=== PATIENT | male | born 1935 | race Caucasian/White ===

== ENCOUNTER 2016-08-28 06:59 | Observation (INO) | payer OTHER, BC ==
[2016-08-28] MEDS ORDERED: MORPHINE SULFATE INJ 2 MG IVP PRN (07:04)
[2016-08-28] MEDS: NITROSTAT SL PRN ×3 (07:20→07:30)
--- NOTE | 2016-08-28 07:28 | RAD ---
HISTORY: Chest pain Study: Chest one view Comparison: February 24, 2016 Findings: The trachea is midline. The cardiac silhouette is unremarkable. The lungs are clear without focal infiltrate or effusion. The bony thorax is unremarkable. There is a port present on the left. IMPRESSION: 1. No acute cardiopulmonary disease. Reported By:
[2016-08-28] MEDS: NS 1000 ML 1,000 ML IV SCH ×2 (07:30→21:03)
[2016-08-28] MEDS ORDERED: LEVSIN/MAALOX/LIDOC VISC PO PRN (07:49)
[2016-08-28 08:12] LABS: BASOPHILS # (AUTO) 0.1 X10^3/uL (0.0-0.1); BASOPHILS % (AUTO) 0.7 % (0.2-1.0); EOSINOPHILS # (AUTO) 0.1 x10^3/uL (0.0-0.2); EOSINOPHILS % (AUTO) 0.7 % (0.9-2.9); HEMATOCRIT 39.6 % (42.0-54.0); HEMOGLOBIN 13.7 g/dL (13.5-18.0); LYMPHOCYTES # (AUTO) 1.2 X10^3/uL (1.3-2.9); LYMPHOCYTES % (AUTO) 11.8 % (21.0-51.0); MEAN CORPUSCULAR HEMOGLOBIN 30.4 pg (27.0-34.0); MEAN CORPUSCULAR HGB CONC 34.6 g/dL (33.0-35.0); MEAN CORPUSCULAR VOLUME 87.8 fL (80.0-100.0); MEAN PLATELET VOLUME 8.5 fL (7.4-11.0); MONOCYTES # (AUTO) 1.2 x10^3/uL (0.3-0.8); MONOCYTES % (AUTO) 11.9 % (0.0-13.0); NEUTROPHILS # (AUTO) 7.4 x10^3/uL (2.2-4.8); NEUTROPHILS % (AUTO) 74.9 % (42.0-75.0); PLATELET COUNT 322 X10^3/uL (150.0-450.0); RED BLOOD COUNT 4.51 X10^6/uL (4.7-6.0)
[2016-08-28] MEDS ORDERED: DILAUDID INJ IVP PRN (08:15)
[2016-08-28 08:18] LABS: ALANINE AMINOTRANSFERASE 19 Units/L (12-78); ALBUMIN 3.3 g/dL (3.4-5.0); ALKALINE PHOSPHATASE 70 Units/L (46-116); ASPARTATE AMINO TRANSFERASE 13 Units/L (15-37); BLOOD UREA NITROGEN 32 mg/dL (7-18); CALCIUM 9.2 mg/dL (8.5-10.1); CARBON DIOXIDE 21.5 mmol/L (21-32); CHLORIDE 105 mmol/L (98-107); COR CA(FOR HYPOALB) 9.8 mg/dL (8.5-10.1); COR NA(FOR HYPERGLY) 140 mmol/L (136-145); GLUCOSE 196 mg/dL (65-99); MAGNESIUM 2.1 mg/dL (1.7-2.9); SODIUM 138 mmol/L (136-145); TOTAL PROTEIN 7.6 g/dL (6.4-8.2); eGFR BLACK RACES > 60 (>60); eGFR NON BLACK RACES 52 (>60)
[2016-08-28 08:32] LABS: CKMB % 2.7 % (<4); CREATINE KINASE 49 Units/L (39-308); CREATINE KINASE MB 1.3 ng/mL (0-4.0); TROPONIN I < 0.02 ng/mL (0-1.5)
[2016-08-28] MEDS ORDERED: HumuLIN R SUBCUT PRN (08:54)
[2016-08-28] MEDS ORDERED: TORADOL 15 MG VIAL IVP PRN (08:56)
[2016-08-28] MEDS ORDERED: NS 100 ML IV 100 ML IV ONE (09:04)
[2016-08-28] MEDS ORDERED: TORADOL 15 MG VIAL ONE (10:44)
--- NOTE | 2016-08-28 10:55 | CT ---
History: Left-sided chest pain and shortness of breath Study: CTA chest with contrast. Axial and sagittal and coronal MIPS of the pulmonary arteries were d isplayed. Comparison: January 19, 2016 Findings: No pulmonary embolus or pleural effusion or lung consolidation is demonstrated. There is n o mediastinal or hilar adenopathy. The visualized upper abdomen is unremarkable. No significant bony abnormality is demonstrated. There is a 4 millimeter noncalcified pulmonary nodule peripherally in the right middle lobe peer there is a 5 millimeter pulmonary nodule at the apex of the right lung pe er there is a focal scar posteriorly in the superior segment of the right lower lobe. Impression: 1. No evidence for pulmonary embolus 2. Stable small noncalcified right upper and middle lobe pulmonary nodules Reported By:
[2016-08-28 11:06] VITALS: BMI 20.9
[2016-08-28] MEDS: DILAUDID INJ IVP PRN ×2 (11:49→20:55)
[2016-08-28] MEDS: ECOTRIN TAB 325 MG PO SCH (13:33)
[2016-08-28] MEDS: PEPCID 20 MG IV PREMIX* 20 MG/50 ML BAG IV SCH ×2 (13:34→20:47)
[2016-08-28 14:13] LABS: CKMB % 2.3 % (<4); CREATINE KINASE 44 Units/L (39-308); TROPONIN I < 0.02 ng/mL (0-1.5)
[2016-08-28 15:05] LABS: BILIRUBIN,URINE NEGATIVE (NEGATIVE); BLOOD/HEMOGLOBIN,URINE 4+ (NEGATIVE); GLUCOSE, URINE NEGATIVE (NEGATIVE); KETONES,URINE NEGATIVE (NEGATIVE); LEUKOCYTE ESTERASE ,URINE 3+ (NEGATIVE); NITRITES,URINE POSITIVE (NEGATIVE); PH,URINE 6.5 (5.0 - 8.0); PROTEIN,URINE 3+ (NEGATIVE); UROBILINOGEN,URINE NORMAL (NORMAL)
[2016-08-28 15:15] LABS: APPEARANCE,URINE CLOUDY (CLEAR); BACTERIA,URINE 1+ /HPF (NEGATIVE); COLOR,URINE YELLOW (YELLOW); SQUAMOUS EPITHELIAL CELL,UR NEGATIVE /HPF (NEGATIVE)
--- NOTE | 2016-08-28 17:48 | DR.H&P ---
H&P - History & Physical for Day of: H&P Date: 08/28/16 - Chief Complaint Chief Complaint: CP - Allergies Allergies/Adverse Reactions: Allergies Allergy/AdvReac Type Severity Reaction Status Date / Time zolpidem AdvReac Verified 08/28/16 08:57 - History of Present Illness History of Present Illness: 81 WM DIRECT ADMIT, PT OF DR CHRISTY, WITH SEVERE LEFT CHEST PAIN AND SOB. PT HAS PMH OF HTN, DM, CVD AND OA. PT STATES PAIN STARTED LAST PM, NOT RELEAVED WITH REST OR ANALGESICS. PT DEINES ANY N/V. PLAN TO ADMIT FOR R/O AMI, PE. CTA CHEST, SERIAL CE'S EKG'S - Past Medical History Past Medical History: Arthritis, Hypertension, Diabetes Additional Medical History: BPH, DIABETIC NEUROPATHY - Past Surgical History Surgical History: Angioplasty/Stents, Other - Family History Family Medical History: Diabetes Mellitus, Hypertension - Social History Does patient currently use any type of tobacco product: No Alcohol Use: None Drug Use: None - Review of Systems Constitutional: Weakness Eyes: No Symptoms Reported ENT: No Symptoms Reported Respiratory: Shortness of Breath Cardiovascular: Chest Pain Gastrointestinal: No Symptoms Reported Genitourinary: No Symptoms Reported Musculoskeletal: No Symptoms Reported Skin: No Symptoms Reported Neurological: Weakness - Physical Exam Vital Signs: Temperature 99.0 F Pulse Rate [Apical] 62 Pulse Rate 62 Respiratory Rate 24 Blood Pressure [Left Arm] 158/75 Blood Pressure [Right Arm] 115/68 Blood Pressure 158/75 O2 Sat by Pulse Oximetry 96 Oriented: Normal Eyes: Normal Ear: Normal Nose: Normal Throat: Normal Respiratory: RLL Diminished, LLL Diminished Cardiovascular: Normal. negative: Edema : Normal Auscultation: Bowel Sounds: Normal Tenderness: Normal Skin: Normal Musculoskeletal: Back:Lumbar, Sensory Deficit (CHRONIC RIGHT UPPER AND LOWER EXTREMITY PARESTHESIAS) Psychiatric: Anxiety Speech Pattern: Clear, Appropriate - Assessment/Plan (1) Chest pain Qualifiers: Chest pain type: C Ischemic chest pain type: I Status: Acute Plan: ADMIT, SERIAL EKG'S AND CARDIAC ENZYMES (2) Shortness of breath Status: Acute (3) Diabetes Qualifiers: Diabetes mellitus type: type 2 Diabetes mellitus complication status: D Diabetes mellitus complication detail: with polyneuropathy Diabetic retinopathy severity: D Proliferative retinopathy type: P Diabetes mellitus macular edema: D Diabetes mellitus longterm insulin use: D Laterality: L Chronic kidney disease stage: C Status: Chronic (4) 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
[2016-08-28] MEDS ORDERED: NORCO 10/325 TAB PO PRN (18:23)
[2016-08-28] MEDS: LEVAQUIN PREMIX IV 500 MG 500 MG/100 ML BAG IV SCH (18:36)
[2016-08-28] MEDS ORDERED: SNACK - Diabetic Appropriate PO SCH (20:00)
[2016-08-28 20:29] LABS: CKMB % 2.5 % (<4); CREATINE KINASE 49 Units/L (39-308); CREATINE KINASE MB 1.2 ng/mL (0-4.0); TROPONIN I < 0.02 ng/mL (0-1.5)
[2016-08-28] MEDS: FLOMAX PO SCH (20:47)
[2016-08-28] MEDS: ROCEPHIN VIAL 1 GM 1 GM in NS 50 ML IV + SPIKE MINIBAG* 50 ML IV SCH (20:47)
[2016-08-28] MEDS: LEVEMIR SC SCH (20:48)
[2016-08-28] MEDS ORDERED: COLACE CAP 100 MG PO SCH (21:00)
[2016-08-28] MEDS ORDERED: TAMSULOSIN HCL 0.4 MG PO SCH (21:00)
[2016-08-28] MEDS ORDERED: ZOCOR TAB 20 MG PO SCH (21:00)
[2016-08-29 05:27] LABS: BASOPHILS # (AUTO) 0.1 X10^3/uL (0.0-0.1); BASOPHILS % (AUTO) 0.5 % (0.2-1.0); EOSINOPHILS # (AUTO) 0.1 x10^3/uL (0.0-0.2); EOSINOPHILS % (AUTO) 0.8 % (0.9-2.9); HEMATOCRIT 40.2 % (42.0-54.0); HEMOGLOBIN 13.7 g/dL (13.5-18.0); LYMPHOCYTES # (AUTO) 0.7 X10^3/uL (1.3-2.9); LYMPHOCYTES % (AUTO) 6.8 % (21.0-51.0); MEAN CORPUSCULAR HEMOGLOBIN 30.1 pg (27.0-34.0); MEAN CORPUSCULAR HGB CONC 34.1 g/dL (33.0-35.0); MEAN CORPUSCULAR VOLUME 88.2 fL (80.0-100.0); MEAN PLATELET VOLUME 8.5 fL (7.4-11.0); MONOCYTES # (AUTO) 1.1 x10^3/uL (0.3-0.8); MONOCYTES % (AUTO) 10.6 % (0.0-13.0); NEUTROPHILS # (AUTO) 8.5 x10^3/uL (2.2-4.8); NEUTROPHILS % (AUTO) 81.3 % (42.0-75.0); PLATELET COUNT 296 X10^3/uL (150.0-450.0); RED BLOOD COUNT 4.55 X10^6/uL (4.7-6.0); WHITE BLOOD COUNT 10.5 X10^3/uL (3.6-10.0)
[2016-08-29 05:35] LABS: ALANINE AMINOTRANSFERASE 18 Units/L (12-78); ALBUMIN 3.1 g/dL (3.4-5.0); ALKALINE PHOSPHATASE 69 Units/L (46-116); ASPARTATE AMINO TRANSFERASE 13 Units/L (15-37); BLOOD UREA NITROGEN 24 mg/dL (7-18); CALCIUM 8.4 mg/dL (8.5-10.1); CARBON DIOXIDE 23.6 mmol/L (21-32); CHLORIDE 103 mmol/L (98-107); COR CA(FOR HYPOALB) 9.1 mg/dL (8.5-10.1); COR NA(FOR HYPERGLY) 140 mmol/L (136-145); CREATININE 1.38 mg/dL (0.70-1.30); GLUCOSE 215 mg/dL (65-99); SODIUM 137 mmol/L (136-145); TOTAL PROTEIN 7.5 g/dL (6.4-8.2); eGFR BLACK RACES > 60 (>60); eGFR NON BLACK RACES 53 (>60)
--- NOTE | 2016-08-29 07:49 | US ---
HISTORY: Chest pain, right upper quadrant pain Study: Right upper quadrant ultrasound Comparison: None Technique: Multiple grayscale sonographic images were obtained. Findings: The liver was normal in size and configuration and without cysts, mass, or biliary ductal dilatation . No stones are present within the gallbladder. Gallbladder wall thickness was normal. The common du ct measured 4 millimeters. The right kidney measured 8.6 x 4.7 x 5.6 centimeters and demonstrated no solid masses, stones, or perinephric fluid collections. Right-sided hydronephrosis is present. This could be better evaluated with CT. The pancreas was obscured by overlying bowel gas. IMPRESSION: No evidence for visible cholelithiasis or cholecystitis Right-sided hydronephrosis which could be better evaluated with CT. Reported By:
[2016-08-29] MEDS: FLOMAX PO SCH (08:08)
[2016-08-29] MEDS: ROCEPHIN VIAL 1 GM 1 GM in NS 50 ML IV + SPIKE MINIBAG* 50 ML IV SCH (08:08)
[2016-08-29] MEDS: PEPCID 20 MG IV PREMIX* 20 MG/50 ML BAG IV SCH (08:08)
[2016-08-29] MEDS: LEVEMIR SC SCH (08:09)
[2016-08-29] MEDS: LEVAQUIN PREMIX IV 500 MG 500 MG/100 ML BAG IV SCH (08:12)
[2016-08-29] MEDS: ECOTRIN TAB 325 MG PO SCH (08:13)
[2016-08-29] MEDS ORDERED: COZAAR PO SCH (09:00)
--- NOTE | 2016-08-29 10:57 | CT ---
CT abdomen and pelvis without contrast Clinical indication: Right-sided hydronephrosis seen on ultrasound earlier today Technique: Axial CT images of the abdomen and pelvis were obtained without contrast. Reformatted marc ges in the coronal and sagittal planes were also generated for review. Comparison: Right upper quadrant ultrasound from earlier today. Findings: There is mild dependent subsegmental atelectasis. Several subcentimeter bilateral pulmonary nodules are present, for example within the right middle lobe (axial image 3 and 10), right lower lobe (axia l image 14) and left lower lobe on axial image 6 and 9. There is mild coronary artery atheroscleroti c disease. No significant pleural or pericardial effusion is seen. There is a 4-5 mm nonobstructing stone within the lower pole of the right kidney and an additional p unctate nonobstructing calculus within the mid right kidney. There is mild right-sided pelviectasis without brionna hydroureteronephrosis. There is moderate hydronephrosis and mild hydroureter on the le ft with a 7-8 mm dependent stone within the dilated left renal pelvis. There is also a punctate ston e within the dependent urinary bladder (axial image 79). No definite radiopaque ureteral calculi are identified. The urinary bladder is moderately distended but thin walled. There is high attenuation fluid within the bilateral collecting systems as well as urinary bladder, likely related to excreted contrast from recent CTA chest examination. The prostate gland is enlarged and bulges into the base of the urinary bladder. Within the limits of a noncontrast exam, the liver, gallbladder, spleen (calcified granulomata), santana creas, adrenals are unremarkable. There is moderate colonic diverticulosis without evidence of acute inflammation. A small sliding hiatal hernia is noted. The remaining GI tract, including the appendi x appear normal. No bowel obstruction seen. There is mild calcification of the celiac axis and proximal SMA. There is a small fat containing lef t inguinal hernia. No free air, free fluid or lymphadenopathy. There are mild degenerative changes throughout the spine and multiple small enostoses within the adam ateral femoral heads. Calcified injection granuloma is noted within the right buttock. There is a sm all probable left inguinal sebaceous cyst. Impression: 1. Bilateral nephrolithiasis with mild right renal pelviectasis and mild-moderate left hydroureteron ephrosis. Findings are likely related to vesicoureteral reflux secondary to moderate prostatomegaly with resultant bladder outlet obstruction. A tiny punctate bladder stone is also present. 2. Incidental bilateral sub cm pulmonary nodules, nonspecific and possibly inflammatory/infectious i n etiology. Comparison with prior imaging if available or further evaluation with dedicated chest CT is recommended, if indicated. 3. Colonic diverticulosis without evidence of diverticulitis and multiple additional incidental find ings as detailed above. Reported By:
[2016-08-29] MEDS ORDERED: PriLOSEC PO SCH (11:00)
--- NOTE | 2016-08-29 12:25 | RAD ---
Right shoulder, three views Indication: Persistent shoulder pain since fall in December Comparison: None Findings: There is mild superior subluxation of the distal clavicle at the AC joint, possibly reflec ting sequela from remote injury. No associated fracture or adjacent soft tissue swelling is identifi ed. The coracoclavicular and acromial humeral intervals appear within normal limits. Surrounding sof t tissues are unremarkable. Impression: Mild superior subluxation of the distal clavicle at the AC joint without associated fracture or disl ocation. Findings may reflect grade II AC joint injury. Reported By:
[2016-08-29 13:09] VITALS: BP 107/68
== END 2016-08-29 13:15 | disposition home or self-care (01) ==
LOC: ICU 06:59 → UNDOADMOB 06:59 → ICU 07:01
PROVIDERS: ADMIT Internal Medicine; ATTEND Internal Medicine
DX: R07.89 Other chest pain (principal); R06.02 Shortness of breath; I10 Essential (primary) hypertension; E11.65 Type 2 diabetes mellitus with hyperglycemia; M13.89 Other specified arthritis, multiple sites; I69.851 Hemiplegia and hemiparesis following other cerebrovascular disease affecting right dominant side; E78.2 Mixed hyperlipidemia; R94.4 Abnormal results of kidney function studies
CPT/HCPCS: 36415; 71010; 71275; 73030; 74176; 76705; 80053; 80061; 81001; 82550; 82553; 83735; 84484; 85025; 85610; 85730; 86677; 87086; 93005; 93010; A4222; S0028; 1956; G0378; J0696; J1815; J1956; J2270

== ENCOUNTER 2017-06-05 09:33 | Observation (INO) | payer OTHER, BC ==
--- NOTE | 2017-06-05 10:27 | RAD ---
Exam: Chest two views History: 82-year-old male with dizziness and weakness. Hypertension. Comparison: Previous chest radiograph from 08/28/2016 Findings: Left chest wall port is again noted with the tip of the catheter in the superior vena cava. Heart size and pulmonary vasculature are normal. Lungs are clear with no infiltrate or pleural effus ion on either side. Bony thorax is unremarkable as well. Impression: No acute cardiopulmonary abnormality is seen. Reported By:
--- NOTE | 2017-06-05 10:37 | CT ---
Exam: Head CT without contrast History: 82-year-old male with dizziness and weakness. Comparison: Previous head CT from 02/24/2016 Technique: Axial imaging was performed from the vertex to the base the skull without intravenous cont rast being administered. Subsequently coronal and sagittal reformations were generated. Automated exp osure control techniques were utilized. Findings: Generalized age related atrophic changes are present. However there is no evidence of intracranial he morrhage, extracerebral fluid collections, or intracranial mass. Previous identified left basal gangl ia infarct is again noted. Patchy low density is present in a periventricular deep white matter distr ibution, high-dose consistent with underlying chronic small vessel ischemic disease. Ventricles are s ymmetric in size and position with no mass effect seen. On the bone windows, no acute abnormality is not seen. Visualized aspect of the paranasal sinuses and mastoid air cells are clear. Impression: 1. No acute intracranial abnormality is seen on this exam. 2. Old left basal ganglia infarct. 3. Generalized age related atrophic change and patchy areas of chronic small vessel ischemia are agai n seen in a periventricular white matter distribution. Reported By:
[2017-06-05] MEDS ORDERED: MORPHINE SULFATE INJ 2 MG INJ IVP PRN (11:42)
[2017-06-05 12:09] LABS: BASOPHILS # (AUTO) 0.1 X10^3/uL (0.0-0.1); EOSINOPHILS # (AUTO) 0.2 x10^3/uL (0.0-0.2); HEMATOCRIT 41.3 % (42.0-54.0); HEMOGLOBIN 14.2 g/dL (13.5-18.0); LYMPHOCYTES # (AUTO) 1.2 X10^3/uL (1.3-2.9); LYMPHOCYTES % (AUTO) 13.7 % (21.0-51.0); MEAN CORPUSCULAR HEMOGLOBIN 30.6 pg (27.0-34.0); MEAN CORPUSCULAR HGB CONC 34.5 g/dL (33.0-35.0); MEAN CORPUSCULAR VOLUME 88.7 fL (80.0-100.0); MEAN PLATELET VOLUME 8.4 fL (7.4-11.0); MONOCYTES # (AUTO) 0.9 x10^3/uL (0.3-0.8); MONOCYTES % (AUTO) 10.9 % (0.0-13.0); NEUTROPHILS # (AUTO) 6.1 x10^3/uL (2.2-4.8); NEUTROPHILS % (AUTO) 72.4 % (42.0-75.0); PLATELET COUNT 280 X10^3/uL (150.0-450.0); RED BLOOD COUNT 4.66 X10^6/uL (4.7-6.0); WHITE BLOOD COUNT 8.5 X10^3/uL (3.6-10.0)
[2017-06-05 12:45] LABS: BLOOD UREA NITROGEN 26 mg/dL (7-18); CALCIUM 9.1 mg/dL (8.5-10.1); CARBON DIOXIDE 24.8 mmol/L (21-32); CHLORIDE 105 mmol/L (98-107); COR NA(FOR HYPERGLY) 141 mmol/L (136-145); CREATININE 1.38 mg/dL (0.70-1.30); SODIUM 139 mmol/L (136-145); TROPONIN I < 0.02 ng/mL (0-1.5); eGFR BLACK RACES > 60 (>60); eGFR NON BLACK RACES 52 (>60)
[2017-06-05] MEDS ORDERED: NS 1/2 1000 ML IV 1,000 ML IV ONE (12:45)
[2017-06-05 12:50] LABS: ALANINE AMINOTRANSFERASE 19 Units/L (12-78); ALBUMIN 3.5 g/dL (3.4-5.0); ALKALINE PHOSPHATASE 70 Units/L (46-116); ASPARTATE AMINO TRANSFERASE 14 Units/L (15-37); CKMB % 2.7 % (<4); CREATINE KINASE 85 Units/L (39-308); CREATINE KINASE MB 2.3 ng/mL (0-4.0); TOTAL PROTEIN 7.6 g/dL (6.4-8.2)
[2017-06-05] MEDS: ASPIRIN 81 MG CHEWTAB PO SCH (12:59)
[2017-06-05] MEDS: PROTONIX INJ 40 MG VIAL IVP SCH (12:59)
[2017-06-05] MEDS: NS 1/2 1000 ML IV 1,000 ML IV SCH (12:59)
[2017-06-05] MEDS: PLAVIX PO SCH (13:00)
--- NOTE | 2017-06-05 13:08 | CT ---
History: Neck pain without injury Study: CT cervical spine without contrast. Sagittal and coronal reformations were provided. Findings: There is normal overall alignment. There is severe anterior osteophyte formation at C5-6. T here is severe C6-7 disc space narrowing with more mild anterior osteophyte formation. There are mode rate to severe diffuse osteophytes about the facet joints. There is osteophytes about the articulatio n of the dens with the arch of C1. 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
--- NOTE | 2017-06-05 16:34 | DR.H&P ---
H&P - History & Physical for Day of: H&P Date: 06/05/17 - Chief Complaint Chief Complaint: severe left side neck pain, dizziness, nearly faited, feels weak - Allergies Allergies/Adverse Reactions: Allergies Allergy/AdvReac Type Severity Reaction Status Date / Time zolpidem AdvReac Verified 08/28/16 08:57 - History of Present Illness History of Present Illness: 82 WM DIRECT ADMIT FROM DR BEACH OFFICE WITH CO SUDDEN ONSET WEAKNESS WITH NEAR FAINTING SPELL EARLY THIS AM ~8AM. PT STATES HE BECAME UNSTEADY AND HAD SEVERE PAIN TO LEFT SIDE OF NECK. PT DENIES ANY SOB. PT CO FEELING DIZZY. PT HAS HAD CVA WITH RESIDUAL RIDE SIDE WEAKNESS AND SLURRED SPEECH. PT HAS HTN, DM, BPH, OA. PT ADMITTED TO ICU, SERIAL CE AND EKG ON ADMISSION CT HEAD R/O ACUTE CVA - Past Medical History Past Medical History: Arthritis, CVA, Diabetes, Hypertension Additional Medical History: BPH, DIABETIC NEUROPATHY - Past Surgical History Surgical History: Angioplasty/Stents, Other - Family History Family Medical History: Diabetes Mellitus, Hypertension - Social History Does patient currently use any type of tobacco product: No Have you used tobacco products in the last 12 months: No Type of Tobacco Use: None Alcohol Use: None Drug Use: None - Medications Home Medications: Amlodipine Besylate [NORVASC 5 MG *] 5 mg PO DAILY 06/05/17 [History Confirmed 06/05/17] - Review of Systems Constitutional: Weakness Eyes: No Symptoms Reported ENT: No Symptoms Reported Respiratory: No Symptoms Reported Cardiovascular: Palpitations, Light Headedness Gastrointestinal: Nausea Genitourinary: No Symptoms Reported Musculoskeletal: Neck Pain Skin: No Symptoms Reported Neurological: Weakness, Other (DIZZINESS) - Physical Exam Vital Signs: Temperature 98 F Pulse Rate [Right] 73 Respiratory Rate 22 Blood Pressure [Left Arm] 158/75 Blood Pressure [Right Arm] 148/76 Blood Pressure 107/68 O2 Sat by Pulse Oximetry 92 Oriented: Person Eyes: Normal Ear: Normal Nose: Normal Throat: Normal Respiratory: RLL Diminished, LLL Diminished Cardiovascular: Normal. negative: Edema : Normal Auscultation: Bowel Sounds: Normal Palpation: Normal Tenderness: Normal Skin: Decreased Turgur Musculoskeletal: Tender (C SPINE), Motor Deficit (MILD CHRONIC RUE, RLE WEAKNESS ) Affect: Anxious Speech Pattern: Slurred (CHRONIC FROM PREVIOUS CVA) - Assessment/Plan (1) Syncope, near Status: Acute Plan: ADMIT ICU, SERIAL CE AND EKG. CXR ON ADMISSION SUPPLEMENTAL O2. CT HEAD STAT R/O CVA, BS CONTROL. HTN AND LIPID MONITORING. ADMISSION LABS. RESUME HOME MEDS, PLAVIX, ASA, LOSARTAN, SSI COVERAGE. 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
[2017-06-05 18:28] LABS: CKMB % 2.8 % (<4); CREATINE KINASE 71 Units/L (39-308); TROPONIN I < 0.02 ng/mL (0-1.5)
[2017-06-05 18:38] LABS: BILIRUBIN,URINE NEGATIVE (NEGATIVE); BLOOD/HEMOGLOBIN,URINE NEGATIVE (NEGATIVE); GLUCOSE, URINE 2+ (NEGATIVE); KETONES,URINE NEGATIVE (NEGATIVE); LEUKOCYTE ESTERASE ,URINE NEGATIVE (NEGATIVE); NITRITES,URINE NEGATIVE (NEGATIVE); PROTEIN,URINE NEGATIVE (NEGATIVE); UROBILINOGEN,URINE NORMAL (NORMAL)
[2017-06-05 18:42] LABS: APPEARANCE,URINE CLEAR (CLEAR); COLOR,URINE YELLOW (YELLOW)
[2017-06-05] MEDS ORDERED: SNACK - Diabetic Appropriate PO SCH (20:00)
[2017-06-05] MEDS ORDERED: ZOCOR TAB 20 MG PO SCH (21:00)
[2017-06-05] MEDS ORDERED: FLOMAX PO SCH (21:00)
[2017-06-05] MEDS ORDERED: TAMSULOSIN HCL 0.4 MG PO SCH (21:00)
[2017-06-05] MEDS ORDERED: RESTORIL CAP 15 MG PO PRN (21:01)
[2017-06-06 01:36] LABS: CKMB % 3.6 % (<4); CREATINE KINASE 55 Units/L (39-308); TROPONIN I < 0.02 ng/mL (0-1.5)
[2017-06-06] MEDS: HumuLIN R SUBCUT PRN ×2 (06:13→11:30)
[2017-06-06 06:44] LABS: BASOPHILS % (AUTO) 0.6 % (0.2-1.0); EOSINOPHILS # (AUTO) 0.2 x10^3/uL (0.0-0.2); EOSINOPHILS % (AUTO) 3.2 % (0.9-2.9); HEMATOCRIT 39.7 % (42.0-54.0); HEMOGLOBIN 13.9 g/dL (13.5-18.0); LYMPHOCYTES # (AUTO) 1.1 X10^3/uL (1.3-2.9); LYMPHOCYTES % (AUTO) 16.8 % (21.0-51.0); MEAN CORPUSCULAR HEMOGLOBIN 30.8 pg (27.0-34.0); MEAN CORPUSCULAR HGB CONC 34.9 g/dL (33.0-35.0); MEAN CORPUSCULAR VOLUME 88.4 fL (80.0-100.0); MEAN PLATELET VOLUME 8.6 fL (7.4-11.0); MONOCYTES # (AUTO) 0.9 x10^3/uL (0.3-0.8); MONOCYTES % (AUTO) 12.7 % (0.0-13.0); NEUTROPHILS # (AUTO) 4.5 x10^3/uL (2.2-4.8); NEUTROPHILS % (AUTO) 66.7 % (42.0-75.0); PLATELET COUNT 266 X10^3/uL (150.0-450.0); WHITE BLOOD COUNT 6.8 X10^3/uL (3.6-10.0)
[2017-06-06 07:13] LABS: ALANINE AMINOTRANSFERASE 22 Units/L (12-78); ALBUMIN 3.3 g/dL (3.4-5.0); ALKALINE PHOSPHATASE 63 Units/L (46-116); ASPARTATE AMINO TRANSFERASE 14 Units/L (15-37); BLOOD UREA NITROGEN 21 mg/dL (7-18); CALCIUM 8.9 mg/dL (8.5-10.1); CARBON DIOXIDE 23.9 mmol/L (21-32); CHLORIDE 106 mmol/L (98-107); CHOL/HDL RATIO 3.3 (0.0-5.0); CHOLESTEROL 126 mg/dL (0-200); COR CA(FOR HYPOALB) 9.5 mg/dL (8.5-10.1); COR NA(FOR HYPERGLY) 140 mmol/L (136-145); CREATININE 1.12 mg/dL (0.70-1.30); HDL CHOLESTEROL 38 mg/dL (40-60); SODIUM 138 mmol/L (136-145); TOTAL PROTEIN 7.2 g/dL (6.4-8.2); TRIGLYCERIDES 82 mg/dL (0-150); eGFR BLACK RACES > 60 (>60); eGFR NON BLACK RACES > 60 (>60)
[2017-06-06] MEDS ORDERED: COZAAR PO SCH (09:00)
[2017-06-06] MEDS: PROTONIX INJ 40 MG VIAL IVP SCH (09:01)
[2017-06-06] MEDS: PLAVIX PO SCH (09:01)
[2017-06-06] MEDS: ASPIRIN 81 MG CHEWTAB PO SCH (09:01)
--- NOTE | 2017-06-06 10:19 | MRI ---
MRI BRAIN WITHOUT CONTRAST CLINICAL HISTORY: 82-year-old male with acute stroke. Patient states he lost control of his legs. COMPARISON: CT head 06/05/2017. TECHNIQUE: Multiplanar, multisequence MR images of the brain were obtained without contrast. FINDINGS: There is no evidence of diffusion restriction. The craniocervical junction is normal. Pitui tary and optic nerve complex are normal. Multifocal confluent and punctate T2 FLAIR signal hyperinten sities are present within the periventricular and supraventricular white matter, midbrain and masha th at are nonspecific in appearance but most likely to represent microvascular white matter ischemic debbie nges. Normal signal characteristics and morphology are demonstrated within the cerebral cortex, corpu s callosum and cerebellum. The major vascular flow voids, to include the dural venous sinuses, are in tact. No abnormal susceptibility on gradient imaging. Age advanced cortical volume loss is present, w ith commensurate sulcal and ventricular prominence. The basilar cisterns are normal. Bilateral lens implants. The orbits and globes are otherwise within normal limits. The paranasal sinu ses, tympanic cavities and mastoids are clear. IMPRESSION: 1. No acute ischemic or hemorrhagic insult. 2. Chronic, moderate microvascular white matter ischemic disease with associated volume loss.. Reported By:
--- NOTE | 2017-06-06 11:54 | VAS ---
History: Dizziness for a few days Study: Carotid duplex ultrasound Comparison: None Findings: No significant plaque formation is demonstrated. On the right peak systolic velocity in the common carotid artery is 61.5 centimeters/second compared to 70.2 centimeters/second in the right internal carotid artery for a normal ratio of 1.1. On the left the peak systolic velocity in the common carotid artery is 68.4 centimeters/second compar ed to 72.6 cm per 2nd in the internal carotid artery for ratio of 1. There is antegrade flow in the vertebral arteries. Impression: No evidence for carotid stenosis. Antegrade flow in the vertebral arteries. Reported By:
[2017-06-06 13:31] VITALS: BP 133/63
[2017-06-06] MEDS: NS 1/2 1000 ML IV 1,000 ML IV SCH (13:48)
== END 2017-06-06 14:05 | disposition home or self-care (01) | DRG 312 ==
LOC: ICU 09:33 → UNDOADMOB 09:33 → ICU 09:56
PROVIDERS: ADMIT Internal Medicine; ATTEND Internal Medicine
DX: R55 Syncope and collapse (principal); I69.851 Hemiplegia and hemiparesis following other cerebrovascular disease affecting right dominant side; R42 Dizziness and giddiness; R26.81 Unsteadiness on feet; I10 Essential (primary) hypertension; E11.65 Type 2 diabetes mellitus with hyperglycemia; N40.0 Benign prostatic hyperplasia without lower urinary tract symptoms; R06.02 Shortness of breath; E11.42 Type 2 diabetes mellitus with diabetic polyneuropathy; Z79.899 Other long term (current) drug therapy; E78.2 Mixed hyperlipidemia; R94.31 Abnormal electrocardiogram [ECG] [EKG]
CPT/HCPCS: 36415; 70450; 70551; 71046; 72125; 80053; 80061; 81003; 82550; 82553; 84484; 85025; 93005; 93010; 93880; C9113; G0378; J1815; J2270

== ENCOUNTER 2018-03-12 12:56 | Inpatient (IN) ==
[2018-03-12] MEDS ORDERED: ZOFRAN INJ 4 MG VIAL IVP PRN (13:05)
--- NOTE | 2018-03-12 13:14 | DR.H&P ---
H&P - History & Physical for Day of: H&P Date: 03/12/18 - Chief Complaint Chief Complaint: acute right side weakness, dizziness, luz - History of Present Illness History of Present Illness: 83 WM DIRECT ADMIT FROM DR CHRISTY OFFICE AFTER PRESENTING WITH CO SUDDEN ONSET OF RIGHT SIDE WEAKNESS AND PAIN. PT STATES HE STARTED WITH PAIN DOWN RIGHT ARM AND RIGHT LEG LAST NIGHT, NO INJURY. PT STATES PAIN AND WEAKNESS WORSE THIS AM, CO DIZZINESS WITH VISION BLURRY THIS AM AFTER WAKING. PT HAS PMH OF CVA 2 YEARS AGO, HTN, OA, DM AND HYPERLIPIDEMIA.BP IN OFFICE 166/78. PT STATES BLOOD SUGAR THIS AM WAS 200, AND AROUND THAT LAST NIGHT. PT STATES "I FEEL LIKE IM HAVING ANOTHER STROKE" PT ADMITTED TO ICU FOR R/O ACUTE CVA. - Past Medical History Past Medical History: Arthritis, CVA, Diabetes, Hypertension Additional Medical History: BPH, DIABETIC NEUROPATHY - Past Surgical History Surgical History: Angioplasty/Stents, Other - Family History Family Medical History: Diabetes Mellitus, Hypertension - Social History Does patient currently use any type of tobacco product: No Have you used tobacco products in the last 12 months: No Type of Tobacco Use: None Does any household member use tobacco: No Alcohol Use: None Drug Use: None - Medications Home Medications: zolpidem Adverse Reaction (Verified 08/28/16 08:57) - Review of Systems Constitutional: Weakness Eyes: Vision Change ENT: No Symptoms Reported Respiratory: SOB with Excertion Gastrointestinal: Nausea Musculoskeletal: Arm Pain, Leg Pain Skin: No Symptoms Reported Neurological: Weakness, Numbness (RUE AND RLE) - Physical Exam Vital Signs: Blood Pressure [Left Arm] 158/75 Blood Pressure [Right Arm] 133/63 Blood Pressure 133/63 Oriented: Normal Eyes: Blurred Vision Ear: Normal Nose: Normal Throat: Dry Respiratory: RLL Diminished, LLL Diminished Cardiovascular: Normal : Normal Auscultation: Bowel Sounds: Normal Palpation: Normal Tenderness: Normal Skin: Normal Musculoskeletal: Right, Shoulder, Arm, Back:Lumbar, Tender, Motor Deficit (RIGHT UPPER AND RIGHT LOWER EXTREMITY), Sensory Deficit Psychiatric: Anxiety Affect: Anxious Speech Pattern: Slurred (MILD CHRONIC SLURRING SPEECH) - Assessment/Plan (1) Acute right-sided weakness Status: Acute Plan: ADMIT, TIA VS CVA. CT HEAD STAT ONADMISSION. CXR, SERIAL CE AND EKG. ASPIRIN STATIN PLAVIX THERAPY. BP AND BS SUGAR CONTROL, SSI. 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
--- NOTE | 2018-03-12 13:21 | CT ---
Exam: Head CT without contrast History: 83-year-old male with acute right-sided weakness and dizziness. Previous history of CVA Comparison: Previous head CT from 06/05/2017. Technique: Axial imaging was performed from the vertex to the base the skull without intravenous contrast being administered. Sagittal and coronal reformations were generated. Automated exposure control techniques were used for this exam. Findings: Age related atrophic changes are present. However there is no evidence of intracranial hemorrhage, extracerebral fluid collections, or intracranial mass. Ventricles are symmetric in size and position with no mass effect seen. Patchy low density is present in a periventricular white matter distribution, consistent with chronic small vessel ischemia. On the bone windows, no acute abnormality is seen. Visualized aspect of the paranasal sinuses and mastoid air cells are clear. Impression: 1. No acute intracranial abnormality is seen on this exam. 2. Chronic findings as described above. Reported By:
--- NOTE | 2018-03-12 13:26 | RAD ---
History: Acute right-sided weakness and shortness of breath Study: Portable upright AP chest Comparison: June 05, 2017 Findings: The lungs are clear and the heart size is prominent. There is an unchanged Port-A-Cath via the left subclavian vein. The descending aorta is tortuous. There is no edema or effusion. Impression: No acute cardiopulmonary Reported By:
[2018-03-12 13:35] LABS: BASOPHILS # (AUTO) 0.1 X10^3/uL (0.0-0.1); BASOPHILS % (AUTO) 0.7 % (0.2-1.0); EOSINOPHILS # (AUTO) 0.2 x10^3/uL (0.0-0.2); EOSINOPHILS % (AUTO) 2.2 % (0.9-2.9); HEMATOCRIT 45.1 % (42.0-54.0); HEMOGLOBIN 15.1 g/dL (13.5-18.0); LYMPHOCYTES # (AUTO) 1.8 X10^3/uL (1.3-2.9); LYMPHOCYTES % (AUTO) 20.6 % (21.0-51.0); MEAN CORPUSCULAR HEMOGLOBIN 30.7 pg (27.0-34.0); MEAN CORPUSCULAR HGB CONC 33.5 g/dL (33.0-35.0); MEAN CORPUSCULAR VOLUME 91.6 fL (80.0-100.0); MEAN PLATELET VOLUME 8.4 fL (7.4-11.0); MONOCYTES # (AUTO) 0.9 x10^3/uL (0.3-0.8); MONOCYTES % (AUTO) 10.5 % (0.0-13.0); NEUTROPHILS # (AUTO) 5.9 x10^3/uL (2.2-4.8); PLATELET COUNT 316 X10^3/uL (150.0-450.0); RED BLOOD COUNT 4.93 X10^6/uL (4.7-6.0); RED CELL DISTRIBUTION WIDTH 13.8 % (11.6-16.5); WHITE BLOOD COUNT 8.9 X10^3/uL (3.6-10.0)
[2018-03-12 13:50] LABS: BLOOD UREA NITROGEN 26 mg/dL (7-18); CALCIUM 9.8 mg/dL (8.5-10.1); CARBON DIOXIDE 23.8 mmol/L (21-32); CHLORIDE 101 mmol/L (98-107); COR NA(FOR HYPERGLY) 141 mmol/L (136-145); CREATININE 1.28 mg/dL (0.70-1.30); SODIUM 136 mmol/L (136-145); TROPONIN I < 0.02 ng/mL (0-1.5); eGFR NON BLACK RACES 57 (>60)
[2018-03-12 13:55] LABS: ALANINE AMINOTRANSFERASE 22 Units/L (12-78); ALBUMIN 3.8 g/dL (3.4-5.0); ALKALINE PHOSPHATASE 82 Units/L (46-116); ASPARTATE AMINO TRANSFERASE 14 Units/L (15-37); CKMB % 3.3 % (<4); CREATINE KINASE 55 Units/L (39-308); CREATINE KINASE MB 1.8 ng/mL (0-4.0)
[2018-03-12] MEDS: NEURONTIN CAP 100 MG PO SCH ×2 (14:20→21:08)
[2018-03-12] MEDS: ASPIRIN 81 MG CHEWTAB PO SCH (14:20)
[2018-03-12] MEDS: PROTONIX INJ 40 MG VIAL IVP SCH (14:21)
[2018-03-12] MEDS: PLAVIX PO SCH (14:21)
[2018-03-12] MEDS ORDERED: MORPHINE SULFATE INJ 2 MG INJ IVP PRN (15:22)
[2018-03-12 15:36] LABS: BILIRUBIN,URINE NEGATIVE (NEGATIVE); BLOOD/HEMOGLOBIN,URINE 1+ (NEGATIVE); GLUCOSE, URINE 4+ (NEGATIVE); KETONES,URINE NEGATIVE (NEGATIVE); LEUKOCYTE ESTERASE ,URINE NEGATIVE (NEGATIVE); NITRITES,URINE NEGATIVE (NEGATIVE); PROTEIN,URINE 2+ (NEGATIVE); UROBILINOGEN,URINE NORMAL (NORMAL)
[2018-03-12 15:42] LABS: APPEARANCE,URINE CLEAR (CLEAR); BACTERIA,URINE NEGATIVE /HPF (NEGATIVE); COLOR,URINE YELLOW (YELLOW); MUCUS,URINE FEW /HPF (NEGATIVE); RBC,URINE 0-2 /HPF (NONE SEEN); SQUAMOUS EPITHELIAL CELL,UR NEGATIVE /HPF (NEGATIVE)
[2018-03-12 15:51] VITALS: BMI 22.3
[2018-03-12] MEDS: COZAAR PO SCH (16:20)
[2018-03-12] MEDS: NORVASC TAB 5 MG PO SCH (16:20)
[2018-03-12] MEDS: HumuLIN R SUBCUT PRN ×2 (16:33→21:06)
--- NOTE | 2018-03-12 17:51 | CT ---
HISTORY: Right lower extremity weakness, acute right-sided weakness Study: CT lumbar spine without contrast Comparison: CT abdomen and pelvis 08/29/2016 Technique: Multiple axial images of the lumbar spine without the administration of IV contrast. Sagittal and coronal reformats were performed and reviewed. Dose reduction techniques including Automated Exposure Control (AEC) and adjustment of mA and kV were utilized. Findings: Alignment of the lumbar spine is maintained. No evidence for acute fracture or subluxation identified. Mild biconcave endplate deformities are seen at L4 and L5 appear unchanged. Multilevel spondylosis is present. There are broad-based disc bulges at L3-L4 L4-5 and L5-S1.Posterior elements appear intact. Incidental note of left-sided hydroureteronephrosis that appears chronic in nature with a 1 cm stone in the left extrarenal pelvis. The left UVJ is not visualized. The urinary bladder is distended. IMPRESSION: 1. No acute osseous abnormality of the lumbar spine. 2. Chronic left hydroureteronephrosis and urinary bladder distention. The left UVJ is not visualized on this exam. There is a 1 cm stone in the left extrarenal pelvis. Reported By:
--- NOTE | 2018-03-12 17:52 | MRI ---
MRI SPINE CERVICAL WITHOUT CONTRAST CLINICAL HISTORY: 83-year-old male with acute right-sided weakness. COMPARISON: CT cervical spine 06/05/2017, MR cervical spine 02/24/2016. Technique: Multiplanar, multisequence MRI images of the cervical spine were obtained without the administration of intravenous contrast. FINDINGS: Straightening of cervical lordosis as imaged. Alignment is maintained. The craniocervical junction is normal. Vertebral body and disc space height are maintained. Vertebral marrow and intervertebral disc space signal are normal. Cord signal is normal. The visualized posterior fossa structures are normal. C2-C3: Shallow disc osteophyte with mild facet arthropathy and uncovertebral joint hypertrophy without cord contour deformity or signal change. No foraminal stenosis or central canal stenosis. C3-C4: Shallow disc osteophyte narrows canal to 11 mm. Flattening of the ventral cord without signal change. No foraminal stenosis. C4-C5: Shallow disc osteophyte. Central canal measures 11.8 mm. Flattening of the ventral cord without signal change. Uncovertebral joint hypertrophy with spurring with facet arthropathy produces mild bilateral foraminal stenosis. C5-C6: Broad-based disc osteophyte with central canal measuring 11.2 mm. Flattening of the cord without signal change. Uncovertebral joint hypertrophy with spurring with facet arthropathy produces mild right and moderate left foraminal stenosis. C6-C7: Shallow disc osteophyte without central canal narrowing. Subtle flattening of the ventral cord without signal change. Uncovertebral joint hypertrophy with spurring with mild facet arthropathy produces moderate right and [id number] left foraminal stenosis. C7-T1: No central canal or foraminal stenosis. Paraspinous soft tissues are unremarkable. IMPRESSION: 1. Multilevel disc degeneration and spondyloarthropathy without significant central canal or foraminal stenosis. 2. See level by level descriptions above. Reported By:
[2018-03-12 19:33] LABS: CKMB % 3.2 % (<4); CREATINE KINASE 53 Units/L (39-308); CREATINE KINASE MB 1.7 ng/mL (0-4.0); TROPONIN I < 0.02 ng/mL (0-1.5)
[2018-03-12] MEDS ORDERED: SNACK - Diabetic Appropriate PO SCH (20:00)
[2018-03-12] MEDS: FLOMAX PO SCH (20:55)
[2018-03-12] MEDS: COLACE CAP 100 MG PO SCH (20:55)
[2018-03-12] MEDS: PERCOCET TAB 5/325 MG PO PRN (21:31)
[2018-03-13 01:49] LABS: CKMB % 3.1 % (<4); CREATINE KINASE 45 Units/L (39-308); CREATINE KINASE MB 1.4 ng/mL (0-4.0); TROPONIN I < 0.02 ng/mL (0-1.5)
[2018-03-13] MEDS: NEURONTIN CAP 100 MG PO SCH ×3 (05:37→21:30)
[2018-03-13] MEDS: HumuLIN R SUBCUT PRN ×4 (05:38→21:48)
[2018-03-13 06:44] LABS: BASOPHILS % (AUTO) 0.6 % (0.2-1.0); EOSINOPHILS # (AUTO) 0.3 x10^3/uL (0.0-0.2); EOSINOPHILS % (AUTO) 4.8 % (0.9-2.9); HEMATOCRIT 40.1 % (42.0-54.0); HEMOGLOBIN 13.7 g/dL (13.5-18.0); LYMPHOCYTES # (AUTO) 1.3 X10^3/uL (1.3-2.9); LYMPHOCYTES % (AUTO) 21.9 % (21.0-51.0); MEAN CORPUSCULAR HEMOGLOBIN 30.8 pg (27.0-34.0); MEAN CORPUSCULAR HGB CONC 34.3 g/dL (33.0-35.0); MEAN PLATELET VOLUME 8.6 fL (7.4-11.0); MONOCYTES # (AUTO) 0.8 x10^3/uL (0.3-0.8); MONOCYTES % (AUTO) 13.1 % (0.0-13.0); NEUTROPHILS # (AUTO) 3.5 x10^3/uL (2.2-4.8); NEUTROPHILS % (AUTO) 59.6 % (42.0-75.0); PLATELET COUNT 276 X10^3/uL (150.0-450.0); RED BLOOD COUNT 4.46 X10^6/uL (4.7-6.0); RED CELL DISTRIBUTION WIDTH 14.2 % (11.6-16.5); WHITE BLOOD COUNT 5.9 X10^3/uL (3.6-10.0)
[2018-03-13 06:51] LABS: ALANINE AMINOTRANSFERASE 18 Units/L (12-78); ALBUMIN 3.1 g/dL (3.4-5.0); ALKALINE PHOSPHATASE 68 Units/L (46-116); ASPARTATE AMINO TRANSFERASE 13 Units/L (15-37); BLOOD UREA NITROGEN 23 mg/dL (7-18); CALCIUM 9.2 mg/dL (8.5-10.1); CARBON DIOXIDE 23.6 mmol/L (21-32); CHLORIDE 102 mmol/L (98-107); COR CA(FOR HYPOALB) 9.9 mg/dL (8.5-10.1); COR NA(FOR HYPERGLY) 139 mmol/L (136-145); CREATININE 1.09 mg/dL (0.70-1.30); SODIUM 135 mmol/L (136-145); TOTAL PROTEIN 6.8 g/dL (6.4-8.2); eGFR NON BLACK RACES > 60 (>60)
[2018-03-13] MEDS: ASPIRIN 81 MG CHEWTAB PO SCH (08:52)
[2018-03-13] MEDS: PLAVIX PO SCH (08:53)
[2018-03-13] MEDS: PROTONIX INJ 40 MG VIAL IVP SCH (08:53)
[2018-03-13] MEDS: COZAAR PO SCH (08:53)
[2018-03-13] MEDS: NORVASC TAB 5 MG PO SCH (08:53)
[2018-03-13] MEDS ORDERED: NS 1/2 1000 ML IV 1,000 ML IV ONE ×2 (09:13→20:44)
[2018-03-13] MEDS: NS 1/2 1000 ML IV 1,000 ML IV SCH ×2 (09:21→21:32)
[2018-03-13] MEDS: PERCOCET TAB 5/325 MG PO PRN ×2 (11:02→21:30)
--- NOTE | 2018-03-13 11:16 | VAS ---
History: CVA and dizziness Study: Carotid duplex ultrasound Comparison: CTA neck dated December 19, 2015 Findings: Images show a small focal calcified plaque in the proximal left carotid bulb. Peak systolic velocity in the distal left common carotid artery is 61.3 centimeters/second and in the left internal carotid artery is 61.3 centimeters/second as well for ratio of 1. Peak systolic velocity in the distal right common carotid artery is 64.5 centimeters/second and in the internal carotid artery is 72.1 for ratio of 1.12. There is antegrade flow in the vertebral arteries. Impression: Small calcified plaque at the left carotid bifurcation, no evidence for stenosis. Reported By:
[2018-03-13] MEDS ORDERED: LEVEMIR SC STA (18:07)
[2018-03-13] MEDS ORDERED: TORADOL 30 MG VIAL IVP ONE (18:16)
--- NOTE | 2018-03-13 18:20 | PCM.PROG ---
Progress Note - Progress Note for Day of Date of Exam: 03/13/18 - Subjective Subjective: 83 WM ADMITTED ON 03/12 WITH ACUTE R SIDE WEAKNESS, DIZZINESS AND INTRACTABLE PAIN TO NECK, RLE, RLE WITH NUMBNESS. PT HAS HX OF CVA. PT CT HEAD W/O NEGATIVE FOR ACUTE FINDINS. PT MRI C SPINE WITH DDD. PT CURRENTLY ON PO PERCOCET WITHOUT PAIN RELIEF. WILL ADD IV DILAUDID PRN. CONTINUE BS CONTROL, BP IMPROVED THIS AM. ECHO AND CAROTID FOR TODAY. RESUME HOME LEVEMIR. - Past Medical Family Social History Past Med/Fam/Surg Hx: No changes since H&P Allergies: Allergies zolpidem Adverse Reaction (Verified 08/28/16 08:57) - Review of Systems ROS: No change since H&P - Vital Signs and I&O's Vital Signs: Temperature 97.9 F Pulse Rate [Apical] 57 Pulse Rate 72 Respiratory Rate 20 Blood Pressure [Left Arm] 143/69 Blood Pressure [Right Arm] 133/63 Blood Pressure 174/89 O2 Sat by Pulse Oximetry 93 Intake and Output: Intake & Output 03/11/18 03/12/18 03/13/18 03/14/18 11:59 11:59 11:59 11:59 Intake Total 1050 / 1050 160 / 160 Output Total 675 / 675 800 / 800 Balance 375 / 375 -640 / -640 - Physical Exam Oriented: Normal Eyes: Blurred Vision Ear: Normal Nose: Normal Throat: Dry Respiratory: Diminished Cardiovascular: Normal : Normal Auscultation: Bowel Sounds: Normal Tenderness: Normal Skin: Normal Musculoskeletal: Right, Shoulder, Arm, Back:Lumbar, Tender, Motor Deficit (RIGHT UPPER AND RIGHT LOWER EXTREMITY), Sensory Deficit Psychiatric: Anxiety Affect: Anxious Speech Pattern: Clear, Appropriate - Laboratory and Diagnostics Result Diagrams: 03/13/18 05:27 03/13/18 05:27 Labs: Laboratory WBC 5.9 X10^3/uL (3.6-10.0) 03/13/18 05:27 RBC 4.46 X10^6/uL (4.7-6.0) L 03/13/18 05:27 Hgb 13.7 g/dL (13.5-18.0) 03/13/18 05:27 Hct 40.1 % (42.0-54.0) L 03/13/18 05:27 MCV 90.0 fL (80.0-100.0) 03/13/18 05:27 MCH 30.8 pg (27.0-34.0) 03/13/18 05:27 MCHC 34.3 g/dL (33.0-35.0) 03/13/18 05:27 RDW 14.2 % (11.6-16.5) 03/13/18 05:27 Plt Count 276 X10^3/uL (150.0-450.0) 03/13/18 05:27 MPV 8.6 fL (7.4-11.0) 03/13/18 05:27 Neut % (Auto) 59.6 % (42.0-75.0) 03/13/18 05:27 Lymph % (Auto) 21.9 % (21.0-51.0) 03/13/18 05:27 [place] % (Auto) 13.1 % (0.0-13.0) H 03/13/18 05:27 Eos % (Auto) 4.8 % (0.9-2.9) H 03/13/18 05:27 Baso % (Auto) 0.6 % (0.2-1.0) 03/13/18 05:27 Neut # (Auto) 3.5 x10^3/uL (2.2-4.8) 03/13/18 05:27 Lymph # (Auto) 1.3 X10^3/uL (1.3-2.9) 03/13/18 05:27 [place] # (Auto) 0.8 x10^3/uL (0.3-0.8) 03/13/18 05:27 Eos # (Auto) 0.3 x10^3/uL (0.0-0.2) H 03/13/18 05:27 Baso # (Auto) 0.0 X10^3/uL (0.0-0.1) 03/13/18 05:27 Absolute Nucleated RBC 0.1 /100WBC 03/13/18 05:27 INR Target Range - 03/12/18 13:30 INR 1.01 (0.8-1.3) 03/12/18 13:30 APTT 35.2 SECONDS (22.9-36.5) 03/12/18 13:30 PTT Comment - 03/12/18 13:30 Sodium 135 mmol/L (136-145) L 03/13/18 05:27 Corrected Sodium 139 mmol/L (136-145) 03/13/18 05:27 Potassium 4.4 mmol/L (3.5-5.1) 03/13/18 05:27 Chloride 102 mmol/L (98-107) 03/13/18 05:27 Carbon Dioxide 23.6 mmol/L (21-32) 03/13/18 05:27 BUN 23 mg/dL (7-18) H 03/13/18 05:27 Creatinine 1.09 mg/dL (0.70-1.30) 03/13/18 05:27 Est GFR (MDRD) Af Amer > 60 (>60) 03/13/18 05:27 Est GFR (MDRD) Non-Af > 60 (>60) 03/13/18 05:27 Glucose 248 mg/dL (65-99) H 03/13/18 05:27 POC Glucose (mg/dL) 179 mg/dL (65-99) H 03/13/18 16:22 Calcium 9.2 mg/dL (8.5-10.1) 03/13/18 05:27 Corrected Calcium 9.9 mg/dL (8.5-10.1) 03/13/18 05:27 Total Bilirubin 0.30 mg/dL (0.2-1.0) 03/13/18 05:27 AST 13 Units/L (15-37) L 03/13/18 05:27 ALT 18 Units/L (12-78) 03/13/18 05:27 Alkaline Phosphatase 68 Units/L (46-116) 03/13/18 05:27 Creatine Kinase 45 Units/L (39-308) 03/13/18 01:20 CK-MB (CK-2) 1.4 ng/mL (0-4.0) 03/13/18 01:20 CK/CKMB % Calc 3.1 % (<4) 03/13/18 01:20 Troponin I < 0.02 ng/mL (0-1.5) 03/13/18 01:20 Total Protein 6.8 g/dL (6.4-8.2) 03/13/18 05:27 Albumin 3.1 g/dL (3.4-5.0) L 03/13/18 05:27 Globulin 3.7 g/dL (2.5-4.5) 03/13/18 05:27 Albumin/Globulin Ratio 0.8 Ratio (1.1-2.1) L 03/13/18 05:27 Specimen Type Clean catch urine 03/12/18 15:25 Urine Color Yellow (YELLOW) 03/12/18 15:25 Urine Appearance Clear (CLEAR) 03/12/18 15:25 Urine pH 6.0 (5.0 - 8.0) 03/12/18 15:25 Ur Specific [place] 1.005 (1.000-1.030) 03/12/18 15:25 Urine Protein 2+ (NEGATIVE) 03/12/18 15:25 Urine Glucose (UA) 4+ (NEGATIVE) 03/12/18 15:25 Urine Ketones Negative (NEGATIVE) 03/12/18 15:25 Urine Occult Blood 1+ (NEGATIVE) 03/12/18 15:25 Urine Nitrite Negative (NEGATIVE) 03/12/18 15:25 Urine Bilirubin Negative (NEGATIVE) 03/12/18 15:25 Urine Urobilinogen Normal (NORMAL) 03/12/18 15:25 Ur Leukocyte Esterase Negative (NEGATIVE) 03/12/18 15:25 Urine RBC 0-2 /HPF (NONE SEEN) 03/12/18 15:25 Urine WBC None seen /HPF (NONE SEEN) 03/12/18 15:25 Ur Squamous Epith Cells Negative /HPF (NEGATIVE) 03/12/18 15:25 Urine Bacteria Negative /HPF (NEGATIVE) 03/12/18 15:25 Urine Mucus Few /HPF (NEGATIVE) 03/12/18 15:25 Ur Culture Indicated? No/not indicated 03/12/18 15:25 - Plan (1) Acute right-sided weakness Status: Acute Plan: CT HEAD NEGATIVE ON ADMISSION. CXR, SERIAL CE AND EKG. ASPIRIN STATIN PLAVIX THERAPY. BP AND BS SUGAR CONTROL, SSI. 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
[2018-03-13] MEDS: DILAUDID INJ IVP PRN (19:22)
[2018-03-13] MEDS ORDERED: SNACK - Diabetic Appropriate PO SCH (20:00)
[2018-03-13] MEDS: COLACE CAP 100 MG PO SCH (21:30)
[2018-03-13] MEDS: FLOMAX PO SCH (21:30)
[2018-03-13] MEDS: SNACK - Diabetic Appropriate PO SCH (21:35)
[2018-03-13] MEDS: LEVEMIR SC SCH (21:47)
[2018-03-14] MEDS: NEURONTIN CAP 100 MG PO SCH ×3 (05:32→21:13)
[2018-03-14] MEDS: HumuLIN R SUBCUT PRN ×4 (05:37→21:13)
[2018-03-14 06:35] LABS: BASOPHILS % (AUTO) 0.5 % (0.2-1.0); EOSINOPHILS # (AUTO) 0.3 x10^3/uL (0.0-0.2); HEMATOCRIT 40.2 % (42.0-54.0); HEMOGLOBIN 13.7 g/dL (13.5-18.0); LYMPHOCYTES % (AUTO) 11.3 % (21.0-51.0); MEAN CORPUSCULAR HEMOGLOBIN 30.7 pg (27.0-34.0); MEAN CORPUSCULAR HGB CONC 34.1 g/dL (33.0-35.0); MEAN PLATELET VOLUME 8.6 fL (7.4-11.0); MONOCYTES # (AUTO) 0.9 x10^3/uL (0.3-0.8); MONOCYTES % (AUTO) 10.5 % (0.0-13.0); NEUTROPHILS # (AUTO) 6.2 x10^3/uL (2.2-4.8); NEUTROPHILS % (AUTO) 73.7 % (42.0-75.0); PLATELET COUNT 270 X10^3/uL (150.0-450.0); RED BLOOD COUNT 4.47 X10^6/uL (4.7-6.0); RED CELL DISTRIBUTION WIDTH 13.8 % (11.6-16.5); WHITE BLOOD COUNT 8.4 X10^3/uL (3.6-10.0)
[2018-03-14 06:43] LABS: ALANINE AMINOTRANSFERASE 20 Units/L (12-78); ALBUMIN 2.9 g/dL (3.4-5.0); ALKALINE PHOSPHATASE 67 Units/L (46-116); ASPARTATE AMINO TRANSFERASE 14 Units/L (15-37); BLOOD UREA NITROGEN 23 mg/dL (7-18); CALCIUM 8.4 mg/dL (8.5-10.1); CARBON DIOXIDE 23.9 mmol/L (21-32); CHLORIDE 101 mmol/L (98-107); COR CA(FOR HYPOALB) 9.3 mg/dL (8.5-10.1); COR NA(FOR HYPERGLY) 136 mmol/L (136-145); CREATININE 1.29 mg/dL (0.70-1.30); SODIUM 135 mmol/L (136-145); TOTAL PROTEIN 6.6 g/dL (6.4-8.2); eGFR NON BLACK RACES 57 (>60)
[2018-03-14] MEDS: COZAAR PO SCH (09:24)
[2018-03-14] MEDS: PLAVIX PO SCH (09:24)
[2018-03-14] MEDS: ASPIRIN 81 MG CHEWTAB PO SCH (09:24)
[2018-03-14] MEDS: PROTONIX INJ 40 MG VIAL IVP SCH (09:24)
[2018-03-14] MEDS: NORVASC TAB 5 MG PO SCH (09:24)
[2018-03-14] MEDS ORDERED: SOLU-Medrol 40 MG VIAL IVP ONE (09:41)
[2018-03-14] MEDS ORDERED: FLEXERIL TAB 10 MG PO PRN (09:41)
[2018-03-14] MEDS: PERCOCET TAB 5/325 MG PO PRN ×2 (15:15→21:15)
--- NOTE | 2018-03-14 17:52 | PCM.PROG ---
Progress Note - Progress Note for Day of Date of Exam: 03/14/18 - Subjective Subjective: 83 WM ADMITTED ON 03/12 WITH ACUTE R SIDE WEAKNESS, DIZZINESS AND INTRACTABLE PAIN TO NECK, RLE, RLE WITH NUMBNESS. PT HAS HX OF CVA. PT CT HEAD W/O NEGATIVE FOR ACUTE FINDINS. PT MRI C SPINE WITH DDD. PT CURRENTLY ON PO PERCOCET WITHOUT PAIN RELIEF. WILL ADD IV DILAUDID PRN. CONTINUE BS CONTROL, BP IMPROVED THIS AM. ECHO WITH EF 58% AND CAROTID W/O SIGNIFICANT STENOSIS - Past Medical Family Social History Past Med/Fam/Surg Hx: No changes since H&P Allergies: Allergies zolpidem Adverse Reaction (Verified 08/28/16 08:57) - Review of Systems ROS: No change since H&P - Vital Signs and I&O's Vital Signs: Temperature 98.2 F Pulse Rate [Apical] 78 Pulse Rate 72 Respiratory Rate 17 Blood Pressure [Left Arm] 150/68 Blood Pressure [Right Arm] 133/63 Blood Pressure 174/89 O2 Sat by Pulse Oximetry 94 Intake and Output: Intake & Output 03/12/18 03/13/18 03/14/18 03/15/18 11:59 11:59 11:59 11:59 Intake Total 1050 / 1050 1093 / 1093 640 / 640 Output Total 675 / 675 1275 / 1275 1600 / 1600 Balance 375 / 375 -182 / -182 -960 / -960 - Physical Exam Oriented: Normal Eyes: Blurred Vision Ear: Normal Nose: Normal Throat: Dry Respiratory: Diminished Cardiovascular: Normal : Normal Auscultation: Bowel Sounds: Normal Tenderness: Normal Skin: Normal Musculoskeletal: Right, Shoulder, Arm, Back:Lumbar, Tender, Motor Deficit (RIGHT UPPER AND RIGHT LOWER EXTREMITY), Sensory Deficit Psychiatric: Anxiety Affect: Anxious Speech Pattern: Clear, Appropriate - Laboratory and Diagnostics Result Diagrams: 03/14/18 05:50 03/14/18 05:50 Labs: Laboratory WBC 8.4 X10^3/uL (3.6-10.0) 03/14/18 05:50 RBC 4.47 X10^6/uL (4.7-6.0) L 03/14/18 05:50 Hgb 13.7 g/dL (13.5-18.0) 03/14/18 05:50 Hct 40.2 % (42.0-54.0) L 03/14/18 05:50 MCV 90.0 fL (80.0-100.0) 03/14/18 05:50 MCH 30.7 pg (27.0-34.0) 03/14/18 05:50 MCHC 34.1 g/dL (33.0-35.0) 03/14/18 05:50 RDW 13.8 % (11.6-16.5) 03/14/18 05:50 Plt Count 270 X10^3/uL (150.0-450.0) 03/14/18 05:50 MPV 8.6 fL (7.4-11.0) 03/14/18 05:50 Neut % (Auto) 73.7 % (42.0-75.0) 03/14/18 05:50 Lymph % (Auto) 11.3 % (21.0-51.0) L 03/14/18 05:50 [place] % (Auto) 10.5 % (0.0-13.0) 03/14/18 05:50 Eos % (Auto) 4.0 % (0.9-2.9) H 03/14/18 05:50 Baso % (Auto) 0.5 % (0.2-1.0) 03/14/18 05:50 Neut # (Auto) 6.2 x10^3/uL (2.2-4.8) H 03/14/18 05:50 Lymph # (Auto) 1.0 X10^3/uL (1.3-2.9) L 03/14/18 05:50 [place] # (Auto) 0.9 x10^3/uL (0.3-0.8) H 03/14/18 05:50 Eos # (Auto) 0.3 x10^3/uL (0.0-0.2) H 03/14/18 05:50 Baso # (Auto) 0.0 X10^3/uL (0.0-0.1) 03/14/18 05:50 Absolute Nucleated RBC 0.0 /100WBC 03/14/18 05:50 INR Target Range - 03/12/18 13:30 INR 1.01 (0.8-1.3) 03/12/18 13:30 APTT 35.2 SECONDS (22.9-36.5) 03/12/18 13:30 PTT Comment - 03/12/18 13:30 Sodium 135 mmol/L (136-145) L 03/14/18 05:50 Corrected Sodium 136 mmol/L (136-145) 03/14/18 05:50 Potassium 4.2 mmol/L (3.5-5.1) 03/14/18 05:50 Chloride 101 mmol/L (98-107) 03/14/18 05:50 Carbon Dioxide 23.9 mmol/L (21-32) 03/14/18 05:50 BUN 23 mg/dL (7-18) H 03/14/18 05:50 Creatinine 1.29 mg/dL (0.70-1.30) 03/14/18 05:50 Est GFR (MDRD) Af Amer > 60 (>60) 03/14/18 05:50 Est GFR (MDRD) Non-Af 57 (>60) L 03/14/18 05:50 Glucose 162 mg/dL (65-99) H 03/14/18 05:50 POC Glucose (mg/dL) 190 mg/dL (65-99) H 03/14/18 16:23 Calcium 8.4 mg/dL (8.5-10.1) L 03/14/18 05:50 Corrected Calcium 9.3 mg/dL (8.5-10.1) 03/14/18 05:50 Total Bilirubin 0.30 mg/dL (0.2-1.0) 03/14/18 05:50 AST 14 Units/L (15-37) L 03/14/18 05:50 ALT 20 Units/L (12-78) 03/14/18 05:50 Alkaline Phosphatase 67 Units/L (46-116) 03/14/18 05:50 Creatine Kinase 45 Units/L (39-308) 03/13/18 01:20 CK-MB (CK-2) 1.4 ng/mL (0-4.0) 03/13/18 01:20 CK/CKMB % Calc 3.1 % (<4) 03/13/18 01:20 Troponin I < 0.02 ng/mL (0-1.5) 03/13/18 01:20 Total Protein 6.6 g/dL (6.4-8.2) 03/14/18 05:50 Albumin 2.9 g/dL (3.4-5.0) L 03/14/18 05:50 Globulin 3.7 g/dL (2.5-4.5) 03/14/18 05:50 Albumin/Globulin Ratio 0.8 Ratio (1.1-2.1) L 03/14/18 05:50 Specimen Type Clean catch urine 03/12/18 15:25 Urine Color Yellow (YELLOW) 03/12/18 15:25 Urine Appearance Clear (CLEAR) 03/12/18 15:25 Urine pH 6.0 (5.0 - 8.0) 03/12/18 15:25 Ur Specific [place] 1.005 (1.000-1.030) 03/12/18 15:25 Urine Protein 2+ (NEGATIVE) 03/12/18 15:25 Urine Glucose (UA) 4+ (NEGATIVE) 03/12/18 15:25 Urine Ketones Negative (NEGATIVE) 03/12/18 15:25 Urine Occult Blood 1+ (NEGATIVE) 03/12/18 15:25 Urine Nitrite Negative (NEGATIVE) 03/12/18 15:25 Urine Bilirubin Negative (NEGATIVE) 03/12/18 15:25 Urine Urobilinogen Normal (NORMAL) 03/12/18 15:25 Ur Leukocyte Esterase Negative (NEGATIVE) 03/12/18 15:25 Urine RBC 0-2 /HPF (NONE SEEN) 03/12/18 15:25 Urine WBC None seen /HPF (NONE SEEN) 03/12/18 15:25 Ur Squamous Epith Cells Negative /HPF (NEGATIVE) 03/12/18 15:25 Urine Bacteria Negative /HPF (NEGATIVE) 03/12/18 15:25 Urine Mucus Few /HPF (NEGATIVE) 03/12/18 15:25 Ur Culture Indicated? No/not indicated 03/12/18 15:25 - Plan (1) Acute right-sided weakness Status: Acute Plan: CT HEAD NEGATIVE ON ADMISSION. CXR, SERIAL CE AND EKG STABLE. ASPIRIN STATIN PLAVIX THERAPY. BP AND BS SUGAR CONTROL, SSI. MRI C SPINE, CT L SPINE, PPI, PAIN CONTROL. TRIAL ON LOW DOSE SOLU MEDROL FOR NEUROPATHIC PAIN. 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
[2018-03-14] MEDS ORDERED: NS 1/2 1000 ML IV 1,000 ML IV ONE (19:26)
[2018-03-14] MEDS: NS 1/2 1000 ML IV 1,000 ML IV SCH ×2 (19:42→19:43)
[2018-03-14] MEDS: DILAUDID INJ IVP PRN (19:43)
[2018-03-14] MEDS: SNACK - Diabetic Appropriate PO SCH (19:44)
[2018-03-14] MEDS: LEVEMIR SC SCH (21:12)
[2018-03-14] MEDS: FLOMAX PO SCH (21:12)
[2018-03-14] MEDS: COLACE CAP 100 MG PO SCH (21:12)
[2018-03-15] MEDS ORDERED: RESTORIL CAP 15 MG PO ONE (00:09)
[2018-03-15] MEDS ORDERED: RESTORIL CAP 15 MG PO PRN (00:16)
[2018-03-15] MEDS: NEURONTIN CAP 100 MG PO SCH ×3 (05:15→13:38)
[2018-03-15] MEDS: HumuLIN R SUBCUT PRN ×2 (05:31→11:02)
[2018-03-15 06:05] LABS: BASOPHILS % (AUTO) 0.2 % (0.2-1.0); HEMATOCRIT 42.6 % (42.0-54.0); HEMOGLOBIN 14.4 g/dL (13.5-18.0); LYMPHOCYTES # (AUTO) 0.8 X10^3/uL (1.3-2.9); LYMPHOCYTES % (AUTO) 7.2 % (21.0-51.0); MEAN CORPUSCULAR HEMOGLOBIN 30.5 pg (27.0-34.0); MEAN CORPUSCULAR HGB CONC 33.8 g/dL (33.0-35.0); MEAN CORPUSCULAR VOLUME 90.2 fL (80.0-100.0); MEAN PLATELET VOLUME 8.7 fL (7.4-11.0); MONOCYTES # (AUTO) 0.8 x10^3/uL (0.3-0.8); MONOCYTES % (AUTO) 7.1 % (0.0-13.0); NEUTROPHILS # (AUTO) 9.7 x10^3/uL (2.2-4.8); NEUTROPHILS % (AUTO) 85.5 % (42.0-75.0); PLATELET COUNT 314 X10^3/uL (150.0-450.0); RED BLOOD COUNT 4.72 X10^6/uL (4.7-6.0); RED CELL DISTRIBUTION WIDTH 13.9 % (11.6-16.5); WHITE BLOOD COUNT 11.3 X10^3/uL (3.6-10.0)
[2018-03-15 06:23] LABS: ALANINE AMINOTRANSFERASE 21 Units/L (12-78); ALKALINE PHOSPHATASE 78 Units/L (46-116); ASPARTATE AMINO TRANSFERASE 12 Units/L (15-37); BLOOD UREA NITROGEN 29 mg/dL (7-18); CALCIUM 8.8 mg/dL (8.5-10.1); CHLORIDE 101 mmol/L (98-107); COR CA(FOR HYPOALB) 9.6 mg/dL (8.5-10.1); COR NA(FOR HYPERGLY) 138 mmol/L (136-145); CREATININE 1.37 mg/dL (0.70-1.30); SODIUM 134 mmol/L (136-145); TOTAL PROTEIN 7.1 g/dL (6.4-8.2); eGFR NON BLACK RACES 53 (>60)
[2018-03-15] MEDS: ASPIRIN 81 MG CHEWTAB PO SCH (08:30)
[2018-03-15] MEDS: COZAAR PO SCH (08:30)
[2018-03-15] MEDS: NORVASC TAB 5 MG PO SCH (08:30)
[2018-03-15] MEDS: PLAVIX PO SCH (08:31)
[2018-03-15] MEDS: PROTONIX INJ 40 MG VIAL IVP SCH (08:32)
[2018-03-15] MEDS: LEVEMIR SC SCH ×2 (08:35→08:36)
[2018-03-15] MEDS: NS 1/2 1000 ML IV 1,000 ML IV SCH (10:23)
[2018-03-15 13:08] VITALS: BP 126/72
[2018-03-15] MEDS ORDERED: SNACK - Diabetic Appropriate PO SCH (20:00)
[2018-03-15] MEDS ORDERED: LEVEMIR SC SCH (21:00)
== END 2018-03-15 13:45 | disposition home or self-care (01) | DRG 556 ==
LOC: ICU
PROVIDERS: ADMIT Internal Medicine; ATTEND Internal Medicine
DX: R42 Dizziness and giddiness; R20.2 Paresthesia of skin; M79.604 Pain in right leg; M62.81 Muscle weakness (generalized); E78.2 Mixed hyperlipidemia; H53.9 Unspecified visual disturbance; N40.0 Benign prostatic hyperplasia without lower urinary tract symptoms; I10 Essential (primary) hypertension; E11.65 Type 2 diabetes mellitus with hyperglycemia; G81.91 Hemiplegia, unspecified affecting right dominant side; E11.42 Type 2 diabetes mellitus with diabetic polyneuropathy; R06.02 Shortness of breath
CPT/HCPCS: 36415; 70450; 71010; 71045; 72131; 72141; 80053; 81001; 82550; 82553; 84484; 85025; 85610; 85730; 93005; 93306; 93880; A4222; C9113; G0378; J1170; J1815; J1885; J2270; J2920

== ENCOUNTER 2023-03-31 08:14 | Inpatient (IN) ==
[2023-03-31 08:41] VITALS: BMI 25.9
[2023-03-31 08:59] LABS: RED CELL DISTRIBUTION WIDTH 13.9 % (11.6-16.5)
[2023-03-31 09:03] LABS: HEMOGLOBIN 14.3 g/dL (13.5-18.0); MEAN CORPUSCULAR HEMOGLOBIN 30.8 pg (27.0-34.0); RED BLOOD COUNT 4.63 X10^6/uL (4.7-6.0)
[2023-03-31 09:08] LABS: BASOPHILS % (AUTO) 0.2 % (0.2-1.0); EOSINOPHILS # (AUTO) 0.1 x10^3/uL (0.0-0.2); EOSINOPHILS % (AUTO) 1.4 % (0.9-2.9); HEMATOCRIT 42.9 % (42.0-54.0); LYMPHOCYTES # (AUTO) 1.6 X10^3/uL (1.3-2.9); MEAN CORPUSCULAR HGB CONC 33.3 g/dL (33.0-35.0); MEAN CORPUSCULAR VOLUME 92.6 fL (80.0-100.0); MEAN PLATELET VOLUME 8.4 fL (7.4-11.0); MONOCYTES # (AUTO) 1.3 x10^3/uL (0.3-0.8); MONOCYTES % (AUTO) 12.8 % (0.0-13.0); NEUTROPHILS # (AUTO) 6.9 x10^3/uL (2.2-4.8); NEUTROPHILS % (AUTO) 69.6 % (42.0-75.0); PLATELET COUNT 261 X10^3/uL (150.0-450.0); WHITE BLOOD COUNT 9.9 X10^3/uL (3.6-10.0)
[2023-03-31 09:15] LABS: ALANINE AMINOTRANSFERASE 19 Units/L (12-78); ALBUMIN 3.2 g/dL (3.4-5.0); ALKALINE PHOSPHATASE 100 Units/L (46-116); ASPARTATE AMINO TRANSFERASE 19 Units/L (15-37); BLOOD UREA NITROGEN 20 mg/dL (7-18); CALCIUM 8.1 mg/dL (8.5-10.1); CARBON DIOXIDE 24.2 mmol/L (21-32); CHLORIDE 100 mmol/L (98-107); COR CA(FOR HYPOALB) 8.7 mg/dL (8.5-10.1); COR NA(FOR HYPERGLY) 134 mmol/L (136-145); CREATINE KINASE 60 Units/L (39-308); CREATININE 1.29 mg/dL (0.70-1.30); GLUCOSE 143 mg/dL (65-99); POTASSIUM 3.7 mmol/L (3.5-5.1); SODIUM 133 mmol/L (136-145); TOTAL PROTEIN 7.1 g/dL (6.4-8.2); eGFR NON BLACK RACES 56 (>60)
--- NOTE | 2023-03-31 09:32 | EKG ---
Test Reason : SOB, weakness Blood Pressure : */* mmHG Vent. Rate : 68 BPM Atrial Rate : 68 BPM P-R Int : 274 ms QRS Dur : 92 ms QT Int : 418 ms P-R-T Axes : 37 -9 36 degrees QTc Int : 444 ms Sinus rhythm with 1st degree AV block with premature atrial complexes with aberrant conduction Otherwise normal ECG No previous ECGs available Confirmed by Shaka Hoskins ([id number]) on 03/31/2023 10:38:57 AM Referred By: Confirmed By: Shkaa Hoskins
--- NOTE | 2023-03-31 09:56 | RAD ---
EXAM: AP chest HISTORY: Cough short of breath COMPARISON: None available FINDINGS: The heart is slightly enlarged. There is no definite consolidation, pneumothorax, hilar enlargement or pleural fluid. Mild nonspecific interstitial prominence is present bilaterally with suspect roni pheral infiltrates in the left mid lung. Left subclavian port extends to the cavoatrial junction. IMPRESSION: Cardiac prominence. Findings described are concerning for acute peripheral left mid lung infiltrate s. Follow-up suggested to confirm or exclude. THIS IS AN ELECTRONICALLY VERIFIED FINAL REPORT 03/31/2023 9:48 AM - Electronically signed by Lauro Ward MD
--- NOTE | 2023-03-31 10:07 | DR.SOBA ---
HPI Time Seen Time Seen by Provider: 03/31/23 09:58 Primary Care Physician Primary Care Physician: Tere Guerrero HPI Comment HPI Comment: According to patient he was well before a week ago started with cold-like symptoms with some cough and congestion. Was seen in his primary care office was given Rocephin and azithromycin. Cough did get some better however symptoms has persisted with the increased shortness of breath. He was advised to come to the ER for evaluation. Complaints Chief Complaint Doctors Comments: shortness of breath Chief Complaint:: Weakness, SOB onset x 1 week. Patient states he was seen by Tere Guerrero for same symptoms to include coughing. He received Rocephin IM and Zpak with unknown medication for coughing. He states his cough is better, bu t continues to be weak and SOB. COVID-19 Coronavirus risk:travel/contact w/high risk person: No Has patient experienced Coronavirus symptoms: Yes Coronavirus symptoms experienced: Coughing and Shortness of Breath Reviewed Nurses Notes Reviewed: Yes Source History Provided: Patient and Family Member Mode of Arrival Mode of Arrival: Ambulatory Timing Onset of Chief Complaint: 03/23/23 Duration Duration: Days PMH PMH Past Medical History: Yes Past Medical History: Arthritis, Coronary Artery Disease, CVA, Diabetes, Dyslipidemia, Hypertension and Kidney Stones Past Surgical History: Yes Surgical History: Angioplasty/Stents and Other Family History History of Family Medical Conditions: Yes Family Medical History: Diabetes Mellitus and Hypertension Social History Does patient currently use any type of tobacco product: No Have you used tobacco products in the last 12 months: No Type of Tobacco Use: None Does any household member use tobacco: No Alcohol Use: None Do you use any recreational Drugs:: No Lives With: Alone Lives Where: Home Travel Risk Coronavirus risk:travel/contact w/high risk person: No Has patient experienced Coronavirus symptoms: Yes Coronavirus symptoms experienced: Coughing and Shortness of Breath Infectious screening In the last 2 months have you had wt loss of >10#?: NO Have you had fever, night sweats or hemotysis?: No Have you traveled outside the country in the last 6 months?: No Isolation: Standard ROS Review of Systems Constitutional: Malaise and Fatigue Eyes: No Symptoms Reported ENTM: No Symptoms Reported Respiratoy: Non-Productive Cough and Short of Breath Cardiovascular: No Symptoms Reported Gastrointestinal/Abdominal: No Symptoms Reported Genitourinary: No Symptoms Reported Neurological: No Symptoms Reported Musculoskeletal: No Symptoms Reported Integumentary: No Symptoms Reported Hematologic/Lymphatic: No Symptoms Reported Endocrine: No Symptoms Reported Psychiatric: No Symptoms Reported PE Vital Signs Vitals: Vital Signs Temperature 97.5 F Temperature 95.4 F Pulse Rate 68 Pulse Rate 66 Pulse Rate 70 Pulse Rate 71 Pulse Rate 64 Pulse Rate 63 Pulse Rate 64 Pulse Rate 67 Respiratory Rate 22 Blood Pressure 188/80 O2 Sat by Pulse Oximetry 97 O2 Sat by Pulse Oximetry 96 O2 Sat by Pulse Oximetry 95 O2 Sat by Pulse Oximetry 97 O2 Sat by Pulse Oximetry 95 O2 Sat by Pulse Oximetry 95 O2 Sat by Pulse Oximetry 98 O2 Sat by Pulse Oximetry 94 General Limitations: No Limitations (But hard of hearing) General Appearance: Alert and Anxious Head Head Exam: Normal Inspection and Atraumatic Eyes Eye exam: Normal Appearance and PERRL ENT ENT Exam: Normal Exam, Normal Oropharynx and Mucous Membranes Dry Neck Neck Exam: Normal Inspection and Full ROM Chest Chest Inspection: Normal Inspection and Symmetric Chest Wall Rise Respiratory Respiratory Exam: Bilateral: Clear to Auscultation (Has bronchial breath sounds lungs bilateral) Cardiovascular Cardiovascular Exam: +S1 and +S2 Abdominal Exam Abdominal Exam: Normal Inspection, Normal Bowel Sounds and Soft Neurologic Neurological Exam: Alert Other Exam Other Exam: No pitting edema no pain of the calf muscles bilateral MDM Differential Diagnosis Differential Diagnosis: Mycardial Infarction, Pneumonia and Pulmonary embolism Differential Diagnosis Comment:: Flu COVID RSV, hypothermia oxygen saturation running 93 room air COURSE Treatment Treatment: Respiratory panel, labs, ROR Labs Reviewed Laboratory Results Reviewed?: Yes 03/31/23 08:52 03/31/23 08:52 Laboratory: WBC 9.9 X10^3/uL (3.6-10.0) 03/31/23 08:52 RBC 4.63 X10^6/uL (4.7-6.0) L 03/31/23 08:52 Hgb 14.3 g/dL (13.5-18.0) 03/31/23 08:52 Hct 42.9 % (42.0-54.0) 03/31/23 08:52 MCV 92.6 fL (80.0-100.0) 03/31/23 08:52 MCH 30.8 pg (27.0-34.0) 03/31/23 08:52 MCHC 33.3 g/dL (33.0-35.0) 03/31/23 08:52 RDW 13.9 % (11.6-16.5) 03/31/23 08:52 Plt Count 261 X10^3/uL (150.0-450.0) 03/31/23 08:52 MPV 8.4 fL (7.4-11.0) 03/31/23 08:52 Neut % (Auto) 69.6 % (42.0-75.0) 03/31/23 08:52 Lymph % (Auto) 16.0 % (21.0-51.0) L 03/31/23 08:52 [place] % (Auto) 12.8 % (0.0-13.0) 03/31/23 08:52 Eos % (Auto) 1.4 % (0.9-2.9) 03/31/23 08:52 Baso % (Auto) 0.2 % (0.2-1.0) 03/31/23 08:52 Neut # (Auto) 6.9 x10^3/uL (2.2-4.8) H 03/31/23 08:52 Lymph # (Auto) 1.6 X10^3/uL (1.3-2.9) 03/31/23 08:52 [place] # (Auto) 1.3 x10^3/uL (0.3-0.8) H 03/31/23 08:52 Eos # (Auto) 0.1 x10^3/uL (0.0-0.2) 03/31/23 08:52 Baso # (Auto) 0.0 X10^3/uL (0.0-0.1) 03/31/23 08:52 Absolute Nucleated RBC 0.1 /100WBC 03/31/23 08:52 D-Dimer 0.59 ug/ml (0.0-0.57) H 03/31/23 08:52 Sodium 133 mmol/L (136-145) L 03/31/23 08:52 Corrected Sodium 134 mmol/L (136-145) L 03/31/23 08:52 Potassium 3.7 mmol/L (3.5-5.1) 03/31/23 08:52 Chloride 100 mmol/L (98-107) 03/31/23 08:52 Carbon Dioxide 24.2 mmol/L (21-32) 03/31/23 08:52 BUN 20 mg/dL (7-18) H 03/31/23 08:52 Creatinine 1.29 mg/dL (0.70-1.30) 03/31/23 08:52 Est GFR (MDRD) Af Amer > 60 (>60) 03/31/23 08:52 Est GFR (MDRD) Non-Af 56 (>60) L 03/31/23 08:52 Glucose 143 mg/dL (65-99) H 03/31/23 08:52 Lactic Acid 1.5 mmol/L (0.4-2.0) 03/31/23 08:50 Calcium 8.1 mg/dL (8.5-10.1) L 03/31/23 08:52 Corrected Calcium 8.7 mg/dL (8.5-10.1) 03/31/23 08:52 Total Bilirubin 0.50 mg/dL (0.2-1.0) 03/31/23 08:52 AST 19 Units/L (15-37) 03/31/23 08:52 ALT 19 Units/L (12-78) 03/31/23 08:52 Alkaline Phosphatase 100 Units/L (46-116) 03/31/23 08:52 Creatine Kinase 60 Units/L (39-308) 03/31/23 08:52 Troponin I High Sens 6.6 ng/L (4.0-60.0) 03/31/23 08:52 Total Protein 7.1 g/dL (6.4-8.2) 03/31/23 08:52 Albumin 3.2 g/dL (3.4-5.0) L 03/31/23 08:52 Globulin 3.9 g/dL (2.5-4.5) 03/31/23 08:52 Albumin/Globulin Ratio 0.8 Ratio (1.1-2.1) L 03/31/23 08:52 SARS-CoV-2 (PCR) Positive (NEGATIVE) A 03/31/23 08:29 Influenza Type A (PCR) Negative (NEGATIVE) 03/31/23 08:29 Influenza Type B (PCR) Negative (NEGATIVE) 03/31/23 08:29 RSV (PCR) Negative (NEGATIVE) 03/31/23 08:29 XRAY X-ray Results: Chest x-ray possible peripheral infiltrate in the left mid lung, COVID-positive, Opioid Opioid Risk Tool Age (Berny box if 16-45): No History of Preadolescent Sexual Abuse: No Total: 0 Total Score Risk Category: Low Risk Copyright: [facility] predicting aberrant behaviors Discharge Plan Diagnosis Discharge Problem: COVID-19 virus infection, Hypoxia, Infiltrate noted on imaging study Discharge Plan Patient Disposition: ADMITTED INPATIENT Condition: Stable Prescriptions: No Action metformin 500 MG tablet 500 mg PO BID Tamsulosin HCl 0.4 MG Cap 0.4 mg PO HS losartan 50 MG tablet 50 mg PO DAILY simvastatin 20 MG tablet 20 mg PO HS Levemir U-100 Insulin 100 UNITS/ML solution 30 units SC BID amlodipine 5 MG tablet 5 mg PO DAILY aspirin 325 MG tablet 325 mg PO DAILY Qty: 30 2RF oxycodone-acetaminophen 7.5-325 mg tablet 1 tab PO Q6H MDD 4 PRN (Reason: pain) Qty: 20 0RF promethazine 25 mg tablet 25 mg PO Q6H PRN (Reason: nausea and vomiting) Qty: 14 0RF azithromycin 250 mg tablet 250 mg PO DIRECTED amitriptyline 10 mg tablet 10 mg PO QPM Health Concerns: Post Hospitalization: new medications and changes needed to prevent readmission or further decline. Pt educated and given instructions on all concerns. Plan of Treatment: Continue with present treatment and follow up plan. Pt is to keep follow up appointment as instructed and take medications as ordered. Orders to Discharge Patient Discharge Orders: Transfer (Routine); Ordered 03/31/23 Ordered By: Phillip Clark Follow ups/Referrals Follow ups/Referrals: JOSE CRUZ GUERRERO [Primary Care Provider] - 3 days Instructions Stand Alone Forms: Post Hospital Follow Up Care ADDITIONAL NOTES Additional Notes Additional Notes: Spoke with Dr. Bravo agreed to have patient admitted for observation , Paxlovid, isolation, Rocephin and Zithromax, oxygen
--- NOTE | 2023-03-31 10:25 | DR.SOBA ---
HPI Time Seen Time Seen by Provider: 03/31/23 09:58 Primary Care Physician Primary Care Physician: Tere Geurrero Complaints Chief Complaint:: Weakness, SOB onset x 1 week. Patient states he was seen by Tere Guerrero for same symptoms to include coughing. He received Rocephin IM and Zpak with unknown medication for coughing. He states his cough is better, but continues to be weak and SOB. COVID-19 Coronavirus risk:travel/contact w/high risk person: No Has patient experienced Coronavirus symptoms: Yes Coronavirus symptoms experienced: Coughing and Shortness of Breath Source History Provided: Patient and Family Member Mode of Arrival Mode of Arrival: Ambulatory Timing Onset of Chief Complaint: 03/23/23 PMH PMH Past Medical History: Yes Past Medical History: Arthritis, Coronary Artery Disease, CVA, Diabetes, Dyslipidemia, Hypertension and Kidney Stones Past Surgical History: Yes Surgical History: Angioplasty/Stents and Other Family History History of Family Medical Conditions: Yes Family Medical History: Diabetes Mellitus and Hypertension Social History Does patient currently use any type of tobacco product: No Have you used tobacco products in the last 12 months: No Type of Tobacco Use: None Does any household member use tobacco: No Alcohol Use: None Do you use any recreational Drugs:: No Lives With: Alone Lives Where: Home Travel Risk Coronavirus risk:travel/contact w/high risk person: No Has patient experienced Coronavirus symptoms: Yes Coronavirus symptoms experienced: Coughing and Shortness of Breath Infectious screening In the last 2 months have you had wt loss of >10#?: NO Have you had fever, night sweats or hemotysis?: No Have you traveled outside the country in the last 6 months?: No Isolation: Standard PE Vital Signs Vitals: Vital Signs Temperature 97.5 F Temperature 95.4 F Pulse Rate 68 Pulse Rate 66 Pulse Rate 70 Pulse Rate 71 Pulse Rate 64 Pulse Rate 63 Pulse Rate 64 Pulse Rate 67 Respiratory Rate 22 Blood Pressure 188/80 O2 Sat by Pulse Oximetry 97 O2 Sat by Pulse Oximetry 96 O2 Sat by Pulse Oximetry 95 O2 Sat by Pulse Oximetry 97 O2 Sat by Pulse Oximetry 95 O2 Sat by Pulse Oximetry 95 O2 Sat by Pulse Oximetry 98 O2 Sat by Pulse Oximetry 94 ROR Labs Reviewed 03/31/23 08:52 03/31/23 08:52 Laboratory: WBC 9.9 X10^3/uL (3.6-10.0) 03/31/23 08:52 RBC 4.63 X10^6/uL (4.7-6.0) L 03/31/23 08:52 Hgb 14.3 g/dL (13.5-18.0) 03/31/23 08:52 Hct 42.9 % (42.0-54.0) 03/31/23 08:52 MCV 92.6 fL (80.0-100.0) 03/31/23 08:52 MCH 30.8 pg (27.0-34.0) 03/31/23 08:52 MCHC 33.3 g/dL (33.0-35.0) 03/31/23 08:52 RDW 13.9 % (11.6-16.5) 03/31/23 08:52 Plt Count 261 X10^3/uL (150.0-450.0) 03/31/23 08:52 MPV 8.4 fL (7.4-11.0) 03/31/23 08:52 Neut % (Auto) 69.6 % (42.0-75.0) 03/31/23 08:52 Lymph % (Auto) 16.0 % (21.0-51.0) L 03/31/23 08:52 [place] % (Auto) 12.8 % (0.0-13.0) 03/31/23 08:52 Eos % (Auto) 1.4 % (0.9-2.9) 03/31/23 08:52 Baso % (Auto) 0.2 % (0.2-1.0) 03/31/23 08:52 Neut # (Auto) 6.9 x10^3/uL (2.2-4.8) H 03/31/23 08:52 Lymph # (Auto) 1.6 X10^3/uL (1.3-2.9) 03/31/23 08:52 [place] # (Auto) 1.3 x10^3/uL (0.3-0.8) H 03/31/23 08:52 Eos # (Auto) 0.1 x10^3/uL (0.0-0.2) 03/31/23 08:52 Baso # (Auto) 0.0 X10^3/uL (0.0-0.1) 03/31/23 08:52 Absolute Nucleated RBC 0.1 /100WBC 03/31/23 08:52 D-Dimer 0.59 ug/ml (0.0-0.57) H 03/31/23 08:52 Sodium 133 mmol/L (136-145) L 03/31/23 08:52 Corrected Sodium 134 mmol/L (136-145) L 03/31/23 08:52 Potassium 3.7 mmol/L (3.5-5.1) 03/31/23 08:52 Chloride 100 mmol/L (98-107) 03/31/23 08:52 Carbon Dioxide 24.2 mmol/L (21-32) 03/31/23 08:52 BUN 20 mg/dL (7-18) H 03/31/23 08:52 Creatinine 1.29 mg/dL (0.70-1.30) 03/31/23 08:52 Est GFR (MDRD) Af Amer > 60 (>60) 03/31/23 08:52 Est GFR (MDRD) Non-Af 56 (>60) L 03/31/23 08:52 Glucose 143 mg/dL (65-99) H 03/31/23 08:52 Lactic Acid 1.5 mmol/L (0.4-2.0) 03/31/23 08:50 Calcium 8.1 mg/dL (8.5-10.1) L 03/31/23 08:52 Corrected Calcium 8.7 mg/dL (8.5-10.1) 03/31/23 08:52 Total Bilirubin 0.50 mg/dL (0.2-1.0) 03/31/23 08:52 AST 19 Units/L (15-37) 03/31/23 08:52 ALT 19 Units/L (12-78) 03/31/23 08:52 Alkaline Phosphatase 100 Units/L (46-116) 03/31/23 08:52 Creatine Kinase 60 Units/L (39-308) 03/31/23 08:52 Troponin I High Sens 6.6 ng/L (4.0-60.0) 03/31/23 08:52 Total Protein 7.1 g/dL (6.4-8.2) 03/31/23 08:52 Albumin 3.2 g/dL (3.4-5.0) L 03/31/23 08:52 Globulin 3.9 g/dL (2.5-4.5) 03/31/23 08:52 Albumin/Globulin Ratio 0.8 Ratio (1.1-2.1) L 03/31/23 08:52 SARS-CoV-2 (PCR) Positive (NEGATIVE) A 03/31/23 08:29 Influenza Type A (PCR) Negative (NEGATIVE) 03/31/23 08:29 Influenza Type B (PCR) Negative (NEGATIVE) 03/31/23 08:29 RSV (PCR) Negative (NEGATIVE) 03/31/23 08:29 Opioid Opioid Risk Tool Age (Berny box if 16-45): No History of Preadolescent Sexual Abuse: No Total: 0 Total Score Risk Category: Low Risk Copyright: [facility] predicting aberrant behaviors Discharge Plan Diagnosis Discharge Problem: COVID-19 virus infection, Hypoxia, Infiltrate noted on imaging study Discharge Plan Patient Disposition: ADMITTED INPATIENT Condition: Stable Prescriptions: No Action metformin 500 MG tablet 500 mg PO BID Tamsulosin HCl 0.4 MG Cap 0.4 mg PO HS losartan 50 MG tablet 50 mg PO DAILY simvastatin 20 MG tablet 20 mg PO HS Levemir U-100 Insulin 100 UNITS/ML solution 30 units SC BID amlodipine 5 MG tablet 5 mg PO DAILY aspirin 325 MG tablet 325 mg PO DAILY Qty: 30 2RF oxycodone-acetaminophen 7.5-325 mg tablet 1 tab PO Q6H MDD 4 PRN (Reason: pain) Qty: 20 0RF promethazine 25 mg tablet 25 mg PO Q6H PRN (Reason: nausea and vomiting) Qty: 14 0RF azithromycin 250 mg tablet 250 mg PO DIRECTED amitriptyline 10 mg tablet 10 mg PO QPM Health Concerns: Post Hospitalization: new medications and changes needed to prevent readmission or further decline. Pt educated and given instructions on all concerns. Plan of Treatment: Continue with present treatment and follow up plan. Pt is to keep follow up appointment as instructed and take medications as ordered. Orders to Discharge Patient Discharge Orders: Transfer (Routine); Ordered 03/31/23 Ordered By: Phillip Clark Follow ups/Referrals Follow ups/Referrals: JOSE CRUZ GUERRERO [Primary Care Provider] - 3 days Instructions Stand Alone Forms: Post Hospital Follow Up Care
--- NOTE | 2023-03-31 10:59 | DR.SOBA ---
HPI Time Seen Time Seen by Provider: 03/31/23 09:58 Primary Care Physician Primary Care Physician: Tere Guerrero HPI Comment HPI Comment: According to patient he was doing well before week ago started with cold-like symptoms associate with cough and congestion was seen at primary care's office . Was given shot of Rocephin and azithromycin. Did not have improved cough however shortness of breath and weakness has worsened. Was sent to the ER for evaluation Complaints Chief Complaint Doctors Comments: Shortness of breath Chief Complaint:: Weakness, SOB onset x 1 week. Patient states he was seen by Tere Guerrero for same symptoms to include coughing. He received Rocephin IM and Zpak with unknown medication for coughing. He states his cough is better, but continues to be weak and SOB. COVID-19 Coronavirus risk:travel/contact w/high risk person: No Has patient experienced Coronavirus symptoms: Yes Coronavirus symptoms experienced: Coughing and Shortness of Breath Reviewed Nurses Notes Reviewed: Yes Source History Provided: Patient and Family Member Mode of Arrival Mode of Arrival: Ambulatory Timing Onset of Chief Complaint: 03/23/23 Duration Duration: Days PMH PMH Past Medical History: Yes Past Medical History: Arthritis, Coronary Artery Disease, CVA, Diabetes, Dyslipidemia, Hypertension and Kidney Stones Past Surgical History: Yes Surgical History: Angioplasty/Stents and Other Family History History of Family Medical Conditions: Yes Family Medical History: Diabetes Mellitus and Hypertension Social History Does patient currently use any type of tobacco product: No Have you used tobacco products in the last 12 months: No Type of Tobacco Use: None Does any household member use tobacco: No Alcohol Use: None Do you use any recreational Drugs:: No Lives With: Alone Lives Where: Home Travel Risk Coronavirus risk:travel/contact w/high risk person: No Has patient experienced Coronavirus symptoms: Yes Coronavirus symptoms experienced: Coughing and Shortness of Breath Infectious screening In the last 2 months have you had wt loss of >10#?: NO Have you had fever, night sweats or hemotysis?: No Have you traveled outside the country in the last 6 months?: No Isolation: Standard ROS Review of Systems Constitutional: No Symptoms Reported, Malaise and Fatigue Eyes: No Symptoms Reported ENTM: No Symptoms Reported Respiratoy: Non-Productive Cough and Short of Breath Cardiovascular: No Symptoms Reported Gastrointestinal/Abdominal: No Symptoms Reported Genitourinary: No Symptoms Reported Neurological: No Symptoms Reported Musculoskeletal: No Symptoms Reported Integumentary: No Symptoms Reported Hematologic/Lymphatic: No Symptoms Reported Endocrine: No Symptoms Reported Psychiatric: No Symptoms Reported PE Vital Signs Vitals: Vital Signs Temperature 97.5 F Temperature 95.4 F Pulse Rate 68 Pulse Rate 68 Pulse Rate 66 Pulse Rate 70 Pulse Rate 71 Pulse Rate 64 Pulse Rate 63 Pulse Rate 64 Pulse Rate 67 Respiratory Rate 22 Blood Pressure 188/80 O2 Sat by Pulse Oximetry 97 O2 Sat by Pulse Oximetry 97 O2 Sat by Pulse Oximetry 96 O2 Sat by Pulse Oximetry 95 O2 Sat by Pulse Oximetry 97 O2 Sat by Pulse Oximetry 95 O2 Sat by Pulse Oximetry 95 O2 Sat by Pulse Oximetry 98 O2 Sat by Pulse Oximetry 94 General Limitations: No Limitations (Hard of hearing) General Appearance: Alert, In No Apparent Distress and Anxious Head Head Exam: Normal Inspection, Atraumatic and Normocephalic Eyes Eye exam: Normal Appearance and PERRL ENT ENT Exam: Mucous Membranes Dry Neck Neck Exam: Normal Inspection and Full ROM Chest Chest Inspection: Normal Inspection and Symmetric Chest Wall Rise Respiratory Respiratory Exam: Bilateral: Clear to Auscultation (Positive bronchial breath sounds bilaterally in the lung field without decreased breath sound) Cardiovascular Cardiovascular Exam: +S1 and +S2 Abdominal Exam Abdominal Exam: Normal Inspection, Normal Bowel Sounds and Soft Neurologic Neurological Exam: Alert Skin Skin Exam: Other ([place] cold) MDM Differential Diagnosis Differential Diagnosis: Mycardial Infarction, Pneumonia and Pulmonary embolism Differential Diagnosis Comment:: COVID flu RSV hypoxia COURSE Treatment Treatment: Labs respiratory panel oxygen Reevaluation 1st: Unchanged ROR Labs Reviewed Laboratory Results Reviewed?: Yes 03/31/23 08:52 03/31/23 08:52 Laboratory: WBC 9.9 X10^3/uL (3.6-10.0) 03/31/23 08:52 RBC 4.63 X10^6/uL (4.7-6.0) L 03/31/23 08:52 Hgb 14.3 g/dL (13.5-18.0) 03/31/23 08:52 Hct 42.9 % (42.0-54.0) 03/31/23 08:52 MCV 92.6 fL (80.0-100.0) 03/31/23 08:52 MCH 30.8 pg (27.0-34.0) 03/31/23 08:52 MCHC 33.3 g/dL (33.0-35.0) 03/31/23 08:52 RDW 13.9 % (11.6-16.5) 03/31/23 08:52 Plt Count 261 X10^3/uL (150.0-450.0) 03/31/23 08:52 MPV 8.4 fL (7.4-11.0) 03/31/23 08:52 Neut % (Auto) 69.6 % (42.0-75.0) 03/31/23 08:52 Lymph % (Auto) 16.0 % (21.0-51.0) L 03/31/23 08:52 [place] % (Auto) 12.8 % (0.0-13.0) 03/31/23 08:52 Eos % (Auto) 1.4 % (0.9-2.9) 03/31/23 08:52 Baso % (Auto) 0.2 % (0.2-1.0) 03/31/23 08:52 Neut # (Auto) 6.9 x10^3/uL (2.2-4.8) H 03/31/23 08:52 Lymph # (Auto) 1.6 X10^3/uL (1.3-2.9) 03/31/23 08:52 [place] # (Auto) 1.3 x10^3/uL (0.3-0.8) H 03/31/23 08:52 Eos # (Auto) 0.1 x10^3/uL (0.0-0.2) 03/31/23 08:52 Baso # (Auto) 0.0 X10^3/uL (0.0-0.1) 03/31/23 08:52 Absolute Nucleated RBC 0.1 /100WBC 03/31/23 08:52 D-Dimer 0.59 ug/ml (0.0-0.57) H 03/31/23 08:52 Sodium 133 mmol/L (136-145) L 03/31/23 08:52 Corrected Sodium 134 mmol/L (136-145) L 03/31/23 08:52 Potassium 3.7 mmol/L (3.5-5.1) 03/31/23 08:52 Chloride 100 mmol/L (98-107) 03/31/23 08:52 Carbon Dioxide 24.2 mmol/L (21-32) 03/31/23 08:52 BUN 20 mg/dL (7-18) H 03/31/23 08:52 Creatinine 1.29 mg/dL (0.70-1.30) 03/31/23 08:52 Est GFR (MDRD) Af Amer > 60 (>60) 03/31/23 08:52 Est GFR (MDRD) Non-Af 56 (>60) L 03/31/23 08:52 Glucose 143 mg/dL (65-99) H 03/31/23 08:52 Lactic Acid 1.5 mmol/L (0.4-2.0) 03/31/23 08:50 Calcium 8.1 mg/dL (8.5-10.1) L 03/31/23 08:52 Corrected Calcium 8.7 mg/dL (8.5-10.1) 03/31/23 08:52 Total Bilirubin 0.50 mg/dL (0.2-1.0) 03/31/23 08:52 AST 19 Units/L (15-37) 03/31/23 08:52 ALT 19 Units/L (12-78) 03/31/23 08:52 Alkaline Phosphatase 100 Units/L (46-116) 03/31/23 08:52 Creatine Kinase 60 Units/L (39-308) 03/31/23 08:52 Troponin I High Sens 6.6 ng/L (4.0-60.0) 03/31/23 08:52 Total Protein 7.1 g/dL (6.4-8.2) 03/31/23 08:52 Albumin 3.2 g/dL (3.4-5.0) L 03/31/23 08:52 Globulin 3.9 g/dL (2.5-4.5) 03/31/23 08:52 Albumin/Globulin Ratio 0.8 Ratio (1.1-2.1) L 03/31/23 08:52 SARS-CoV-2 (PCR) Positive (NEGATIVE) A 03/31/23 08:29 Influenza Type A (PCR) Negative (NEGATIVE) 03/31/23 08: Influenza Type B (PCR) Negative (NEGATIVE) 03/31/23 08:29 RSV (PCR) Negative (NEGATIVE) 03/31/23 08:29 XRAY X-ray Results: X-ray mid left lower possible infiltrate Opioid Opioid Risk Tool Age (Berny box if 16-45): No History of Preadolescent Sexual Abuse: No Total: 0 Total Score Risk Category: Low Risk Copyright: [facility] predicting aberrant behaviors Discharge Plan Diagnosis Discharge Problem: COVID-19 virus infection, Hypoxia, Infiltrate noted on imaging study Discharge Plan Patient Disposition: 09 ADMITTED INPATIENT Condition: Stable Orders to Discharge Patient Discharge Orders: Transfer (Routine); Ordered 03/31/23 Ordered By: Phillip Clark ADDITIONAL NOTES Additional Notes Additional Notes: Patient case discussed with Dr. Bravo. COVID-positive, infiltrate possible in the left mid lobe hypoxia. Admit for observation
[2023-03-31] MEDS ORDERED: ~Z-PAK 5 DAY (ZITHROMAX) PO ONE (11:21)
[2023-03-31] MEDS: ROCEPHIN VIAL 1 GRAM 1 G in NS 100 ML IV 100 ML IV SCH (11:55)
[2023-03-31] MEDS: NS 250 ML IV 250 ML IV ONE (11:57)
[2023-03-31] MEDS ORDERED: DUONEB 0.5 MG/3 MG (3 mL) NEB ONE (12:31)
[2023-03-31] MEDS: ZITHROMAX TAB 250 MG PO ONE (12:50)
[2023-03-31] MEDS: PAXLOVID CO-PACK (EUA) PO SCH (12:50)
[2023-03-31] MEDS: DUONEB 0.5 MG/3 MG (3 mL) NEB SCH (13:00)
[2023-03-31] MEDS: ZOFRAN INJ 4 MG VIAL IVP PRN (15:50)
[2023-03-31] MEDS ORDERED: PHENERGAN TAB 25 MG PO PRN (17:10)
[2023-03-31] MEDS: GLUCOPHAGE ONE (18:37)
[2023-03-31] MEDS: GLUCOPHAGE PO SCH (18:37)
[2023-03-31] MEDS: FLOMAX PO SCH (20:21)
[2023-03-31] MEDS: ZOCOR TAB 20 MG PO SCH (20:22)
[2023-03-31] MEDS: ELAVIL PO SCH (20:22)
[2023-03-31] MEDS: LEVEMIR SC SCH (20:26)
[2023-03-31] MEDS: SNACK - Diabetic Appropriate PO SCH (20:27)
[2023-03-31] MEDS: PULMICORT NEB TX 0.5 MG NEB SCH (20:50)
[2023-04-01 05:16] LABS: ALANINE AMINOTRANSFERASE 15 Units/L (12-78); ALBUMIN 2.6 g/dL (3.4-5.0); ALKALINE PHOSPHATASE 87 Units/L (46-116); ASPARTATE AMINO TRANSFERASE 18 Units/L (15-37); BLOOD UREA NITROGEN 18 mg/dL (7-18); CALCIUM 7.7 mg/dL (8.5-10.1); CARBON DIOXIDE 25.7 mmol/L (21-32); CHLORIDE 103 mmol/L (98-107); COR CA(FOR HYPOALB) 8.8 mg/dL (8.5-10.1); COR NA(FOR HYPERGLY) 141 mmol/L (136-145); GLUCOSE 212 mg/dL (65-99); MAGNESIUM 1.9 mg/dL (2.0-2.9); POTASSIUM 4.2 mmol/L (3.5-5.1); SODIUM 138 mmol/L (136-145); TOTAL PROTEIN 6.4 g/dL (6.4-8.2); eGFR NON BLACK RACES 51 (>60)
[2023-04-01 05:32] LABS: BASOPHILS % (AUTO) 0.9 % (0.2-1.0); EOSINOPHILS % (AUTO) 0.9 % (0.9-2.9); HEMATOCRIT 37.6 % (42.0-54.0); HEMOGLOBIN 12.4 g/dL (13.5-18.0); LYMPHOCYTES # (AUTO) 0.6 X10^3/uL (1.3-2.9); LYMPHOCYTES % (AUTO) 12.3 % (21.0-51.0); MEAN CORPUSCULAR HEMOGLOBIN 30.5 pg (27.0-34.0); MEAN CORPUSCULAR HGB CONC 32.9 g/dL (33.0-35.0); MEAN CORPUSCULAR VOLUME 92.7 fL (80.0-100.0); MEAN PLATELET VOLUME 9.4 fL (7.4-11.0); MONOCYTES # (AUTO) 0.7 x10^3/uL (0.3-0.8); MONOCYTES % (AUTO) 14.8 % (0.0-13.0); NEUTROPHILS # (AUTO) 3.6 x10^3/uL (2.2-4.8); NEUTROPHILS % (AUTO) 71.1 % (42.0-75.0); PLATELET COUNT 114 X10^3/uL (150.0-450.0); RED BLOOD COUNT 4.05 X10^6/uL (4.7-6.0); RED CELL DISTRIBUTION WIDTH 13.7 % (11.6-16.5)
[2023-04-01] MEDS ORDERED: CONSULT PHARMACY - POTASSIUM & MAGNESIUM XX SCH (06:00)
[2023-04-01] MEDS: GLUCOPHAGE ONE (06:24)
[2023-04-01] MEDS: MAG-OX TAB PO SCH (09:43)
[2023-04-01] MEDS: ASPIRIN PO SCH (09:43)
[2023-04-01] MEDS: NORVASC TAB 5 MG PO SCH (09:44)
[2023-04-01] MEDS: COZAAR PO SCH (09:44)
[2023-04-01] MEDS: ZITHROMAX TAB 250 MG PO SCH (09:44)
[2023-04-01] MEDS: NS 1,000 ML IV 1,000 ML IV SCH (12:52)
--- NOTE | 2023-04-01 15:01 | DR.H&P ---
H&P History & Physical for Day of: H&P Date: 03/31/23 Chief Complaint Chief Complaint: WEAKNESS, SOB, CCC Allergies Allergies Allergy/AdvReac Type Severity Reaction Status Date / Time zolpidem AdvReac Verified 08/28/16 08:57 History of Present Illness History of Present Illness: PT IS 88 WM, ER ADMISSION AFTER PRESENTING TO ER FOR EVALUATION OF WEAKNESS AND SOB DIRECTED BY PCP. PT HAS BEEN SICK FOR OVER ONE WEEK WITH RESPIRATORY SYMPTOMS. PT HAD ROCEPHIN 1GM IM ON SUNDAY AND STARTED A ZPACK WITHOUT IMPROVEMENT. PT HAS PMH OF HTN, BPH, GERD, DM TYPE 2,HX CVA AND RA. PT ADMITTED FOR EVALUATION AND TREATMENT OF ACUTE ILLNESS. Past Medical History Past Medical History: Arthritis, Coronary Artery Disease, CVA, Diabetes, Dyslipidemia, Hypertension and Kidney Stones Additional Medical History: BPH, DIABETIC NEUROPATHY Past Surgical History Surgical History: Angioplasty/Stents and Other Family History Family Medical History: Diabetes Mellitus and Hypertension Social History Does patient currently use any type of tobacco product: No Have you used tobacco products in the last 12 months: No Type of Tobacco Use: None Does any household member use tobacco: No Alcohol Use: None Drug Use: None Medications Home Medications: Home Medications Medication Instructions Recorded Confirmed Type Tamsulosin HCl 0.4 mg PO HS 12/02/14 03/31/23 History metformin 500 mg tablet 500 mg PO BID 12/02/14 03/31/23 History losartan 50 mg tablet 50 mg PO DAILY 01/19/16 03/31/23 History insulin detemir U-100 100 unit/mL 30 units SC BID 02/24/16 03/31/23 History subcutaneous solution (Levemir U-100 Insulin) simvastatin 20 mg tablet 20 mg PO HS 02/24/16 03/31/23 History amlodipine 5 mg tablet 5 mg PO DAILY 06/05/17 03/31/23 History amitriptyline 10 mg tablet 10 mg PO QPM 03/31/23 03/31/23 History azithromycin 250 mg tablet 250 mg PO DIRECTED 03/31/23 03/31/23 History Labs 04/01/23 04:43 04/01/23 04:43 Labs: Laboratory WBC 5.0 X10^3/uL (3.6-10.0) 04/01/23 04:43 RBC 4.05 X10^6/uL (4.7-6.0) L 04/01/23 04:43 Hgb 12.4 g/dL (13.5-18.0) L 04/01/23 04:43 Hct 37.6 % (42.0-54.0) L 04/01/23 04:43 MCV 92.7 fL (80.0-100.0) 04/01/23 04:43 MCH 30.5 pg (27.0-34.0) 04/01/23 04:43 MCHC 32.9 g/dL (33.0-35.0) L 04/01/23 04:43 RDW 13.7 % (11.6-16.5) 04/01/23 04:43 Plt Count 114 X10^3/uL (150.0-450.0) L 04/01/23 04:43 MPV 9.4 fL (7.4-11.0) 04/01/23 04:43 Neut % (Auto) 71.1 % (42.0-75.0) 04/01/23 04:43 Lymph % (Auto) 12.3 % (21.0-51.0) L 04/01/23 04:43 [place] % (Auto) 14.8 % (0.0-13.0) H 04/01/23 04:43 Eos % (Auto) 0.9 % (0.9-2.9) 04/01/23 04:43 Baso % (Auto) 0.9 % (0.2-1.0) 04/01/23 04:43 Neut # (Auto) 3.6 x10^3/uL (2.2-4.8) 04/01/23 04:43 Lymph # (Auto) 0.6 X10^3/uL (1.3-2.9) L 04/01/23 04:43 [place] # (Auto) 0.7 x10^3/uL (0.3-0.8) 04/01/23 04:43 Eos # (Auto) 0.0 x10^3/uL (0.0-0.2) 04/01/23 04:43 Baso # (Auto) 0.0 X10^3/uL (0.0-0.1) 04/01/23 04:43 Absolute Nucleated RBC 0.3 /100WBC 04/01/23 04:43 D-Dimer 0.59 ug/ml (0.0-0.57) H 03/31/23 08:52 Sodium 138 mmol/L (136-145) 04/01/23 04:43 Corrected Sodium 141 mmol/L (136-145) 04/01/23 04:43 Potassium 4.2 mmol/L (3.5-5.1) 04/01/23 04:43 Chloride 103 mmol/L (98-107) 04/01/23 04:43 Carbon Dioxide 25.7 mmol/L (21-32) 04/01/23 04:43 BUN 18 mg/dL (7-18) 04/01/23 04:43 Creatinine 1.40 mg/dL (0.70-1.30) H 04/01/23 04:43 Est GFR (MDRD) Af Amer > 60 (>60) 04/01/23 04:43 Est GFR (MDRD) Non-Af 51 (>60) L 04/01/23 04:43 Glucose 212 mg/dL (65-99) H 04/01/23 04:43 POC Glucose (mg/dL) 156 mg/dL (65-99) H 04/01/23 12:01 Lactic Acid 1.5 mmol/L (0.4-2.0) 03/31/23 08:50 Calcium 7.7 mg/dL (8.5-10.1) L 04/01/23 04:43 Corrected Calcium 8.8 mg/dL (8.5-10.1) 04/01/23 04:43 Magnesium 1.9 mg/dL (2.0-2.9) L 04/01/23 04:43 Total Bilirubin 0.40 mg/dL (0.2-1.0) 04/01/23 04:43 AST 18 Units/L (15-37) 04/01/23 04:43 ALT 15 Units/L (12-78) 04/01/23 04:43 Alkaline Phosphatase 87 Units/L (46-116) 04/01/23 04:43 Creatine Kinase 60 Units/L (39-308) 03/31/23 08:52 Troponin I High Sens 6.6 ng/L (4.0-60.0) 03/31/23 08:52 Total Protein 6.4 g/dL (6.4-8.2) 04/01/23 04:43 Albumin 2.6 g/dL (3.4-5.0) L 04/01/23 04:43 Globulin 3.8 g/dL (2.5-4.5) 04/01/23 04:43 Albumin/Globulin Ratio 0.7 Ratio (1.1-2.1) L 04/01/23 04:43 SARS-CoV-2 (PCR) Positive (NEGATIVE) A 03/31/23 08:29 Influenza Type A (PCR) Negative (NEGATIVE) 03/31/23 08:29 Influenza Type B (PCR) Negative (NEGATIVE) 03/31/23 08:29 RSV (PCR) Negative (NEGATIVE) 03/31/23 08:29 Review of Systems Constitutional: Fever, Chills, Sweats, Weakness and Malaise Eyes: No Symptoms Reported ENT: Nose Discharge Respiratory: Cough, Shortness of Breath and SOB with Excertion; denies Hemoptysis Cardiovascular: denies Chest Pain Gastrointestinal: Nausea Genitourinary: No Symptoms Reported Musculoskeletal: No Symptoms Reported Skin: No Symptoms Reported and Other (WEAKNESS) Physical Exam Vital Signs: Vital Signs Temperature 97.8 F Pulse Rate [Brachial] 76 Pulse Rate 86 Respiratory Rate 20 Blood Pressure [Right Arm] 150/70 O2 Sat by Pulse Oximetry 96 O2 Sat by Pulse Oximetry 98 Oriented: Normal Eyes: Normal Ear: Normal Nose: Discharge Throat: Red Respiratory: Wheezes Throughout, RLL Diminished and LLL Diminished Cardiovascular: Normal : Normal Auscultation: Bowel Sounds: Normal Palpation: Normal Tenderness: Normal Skin: Decreased [place]urg[place] Musculoskeletal: Motor Deficit Psychiatric: Anxiety Affect: Anxious Speech Pattern: Appropriate and Slurred (MILD CHRONIC SLURRED SPEECH) Assessment/Plan (1) COVID-19 virus infection: Narrative Support Text: ADMIT, IV HYDRATION, BS CONTROL RESP THERAPY, SUPPLEMENTAL O2 VERIFY AND RESUME HOME MEDICATIONS REPEAT AM CXR IV ATBX THERAPY Status: Acute (2) Hypoxia: Status: Acute (3) Shortness of breath: Status: Acute (4) Diabetes: Qualifiers: Diabetes mellitus type: type 2 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
[2023-04-01] MEDS ORDERED: GLUCOPHAGE ONE (16:30)
[2023-04-01] MEDS: NovoLIN R (or HumuLIN R) SUBCUT PRN (16:56)
[2023-04-01] MEDS: ROBITUSSIN DM PO SCH (16:57)
[2023-04-01] MEDS: SOLU-Medrol 40 MG VIAL IVP ONE (16:57)
[2023-04-01] MEDS ORDERED: SNACK - Diabetic Appropriate PO SCH (20:00)
[2023-04-01] MEDS: RESTORIL CAP 15 MG PO PRN (21:39)
--- NOTE | 2023-04-01 22:20 | RAD ---
EXAM: CHEST, 1 VIEW HISTORY: coivd pneumonia covid infection infiltrate left med lobe hypoxia; COMPARISON: 03/31/2023 FINDINGS: The trachea is midline. Left Port-A-Cath tip in distal SVC. The cardiac silhouette is unremarkable. Mild nonspecific interstitial prominence again present bilaterally with peripheral infiltrates with in the left mid lung unchanged.. The bony thorax is unremarkable. IMPRESSION: Stable portable chest THIS IS AN ELECTRONICALLY VERIFIED FINAL REPORT 04/01/2023 10:17 PM - Electronically signed by Raghu Ackerman MD
[2023-04-02] MEDS: TUSSIONEX PENNKINETIC SUSP PO PRN (01:52)
[2023-04-02 06:10] LABS: BASOPHILS % (AUTO) 0.1 % (0.2-1.0); HEMATOCRIT 39.2 % (42.0-54.0); HEMOGLOBIN 13.2 g/dL (13.5-18.0); LYMPHOCYTES # (AUTO) 0.4 X10^3/uL (1.3-2.9); LYMPHOCYTES % (AUTO) 6.2 % (21.0-51.0); MEAN CORPUSCULAR HGB CONC 33.6 g/dL (33.0-35.0); MEAN CORPUSCULAR VOLUME 92.2 fL (80.0-100.0); MEAN PLATELET VOLUME 8.9 fL (7.4-11.0); MONOCYTES # (AUTO) 0.2 x10^3/uL (0.3-0.8); MONOCYTES % (AUTO) 2.5 % (0.0-13.0); NEUTROPHILS # (AUTO) 6.5 x10^3/uL (2.2-4.8); NEUTROPHILS % (AUTO) 91.2 % (42.0-75.0); PLATELET COUNT 279 X10^3/uL (150.0-450.0); RED BLOOD COUNT 4.25 X10^6/uL (4.7-6.0); RED CELL DISTRIBUTION WIDTH 13.8 % (11.6-16.5); WHITE BLOOD COUNT 7.1 X10^3/uL (3.6-10.0)
[2023-04-02] MEDS: GLUCOPHAGE ONE (06:10)
[2023-04-02 06:25] LABS: ALANINE AMINOTRANSFERASE 16 Units/L (12-78); ALBUMIN 2.7 g/dL (3.4-5.0); ALKALINE PHOSPHATASE 89 Units/L (46-116); ASPARTATE AMINO TRANSFERASE 20 Units/L (15-37); BLOOD UREA NITROGEN 20 mg/dL (7-18); CALCIUM 8.3 mg/dL (8.5-10.1); CARBON DIOXIDE 23.6 mmol/L (21-32); CHLORIDE 103 mmol/L (98-107); COR CA(FOR HYPOALB) 9.3 mg/dL (8.5-10.1); COR NA(FOR HYPERGLY) 139 mmol/L (136-145); CREATININE 1.36 mg/dL (0.70-1.30); GLUCOSE 202 mg/dL (65-99); MAGNESIUM 2.3 mg/dL (2.0-2.9); POTASSIUM 4.5 mmol/L (3.5-5.1); SODIUM 137 mmol/L (136-145); eGFR NON BLACK RACES 53 (>60)
[2023-04-02 06:54] LABS: BAND NEUTROPHILS % 2 % (0-10)
[2023-04-02 06:55] LABS: PLATELET MORPHOLOGY COMMENT NORMAL (NORMAL)
[2023-04-02] MEDS: LOVENOX INJ 40 MG SYR SC SCH (09:56)
--- NOTE | 2023-04-02 10:30 | CT ---
EXAM:CT CHEST WITHOUT CONTRASTHISTORY:ACUTE COVID RESP. ILLNESS, HX OF COPD, LUNG NODULES;COMPARISON:None.TECHNIQUE:Axial CT images were obtained through the chest without contrast. Coronal reformatted images were included.All CT scans at this facility use dose modulation, iterative reconstruction, and/or weight based dosing when appropriate to reduce radiation dose to as low as reasonably achievable.FINDINGS:SUPPORT DEVICES: Left-sided port with the catheter notedHEART, VESSELS, AND MEDIASTINUM: Heart is enlarged. Athero sclerotic disease seen in the coronary vessels and aortaLYMPH NODES: No pathologically enlarged nodes.LUNGS AND PLEURA: Lungs show patchy areas of ground-glass alveolar opacities peripherally which may be seen in the setting of viral pneumonitis. Trace right pleural effusion with bibasilar atelectasis is noted.AIRWAYS: Within normal limits.UPPER ABDOMEN: Within normal limits.BONES: Within normal limits.IMPRESSION:Lungs do show patchy areas of ground-glass alveolar opacities peripherally which may be seen in the setting of viral pneumonitis. Trace right pleural effusion with bibasilar atelectasis.THIS IS AN ELECTRONICALLY VERIFIED FINAL REPORT04/02/2023 10:27 AM - Electronically signed by Nakul Solis MD
[2023-04-02] MEDS ORDERED: GLUCOPHAGE ONE (16:34)
--- NOTE | 2023-04-02 17:37 | PCM.PROG ---
Progress Note Progress Note for Day of Date of Exam: 04/02/23 Subjective Subjective: PT IS 88WM, ER ADMISSION WITH COVID PNEUMONIA. PT HAS PMH OF TYPE 2DM WITH GLUCOSE ELEVATED SINCE ADMISSION, PT HAS RECIEVED SOLU MEROL, LOW DOSE FOR WHEEZING WHICH HAS ELEVATED BS. PT STATES HE HAD TO GET MEDICATION FOR SLEEP LAST NIGHT AND THEN IT HELPED ABOUT 3 HRS. PT CO SEVERE COUGHING EVEN WITH TUSSIONEX AND ROBITUSSIN DM. PT HX OF PULMONARY LUNG NODULES, PLAN TO OBTAIN CT OF LUNGS THIS AM. PT HAS BEEN AFEBRILE AND DENIES ANY N/V/D SINCE ADMISSION. Past Medical Family Social History Allergies: Allergies zolpidem Adverse Reaction (Verified 08/28/16 08:57) Vital Signs and I&O's Vital Signs: Vital Signs Temperature 97.6 F Temperature 97.7 F Pulse Rate [Brachial] 83 Pulse Rate [Brachial] 104 Respiratory Rate 20 Respiratory Rate 20 Blood Pressure [Left Arm] 124/57 Blood Pressure [Left Arm] 110/55 O2 Sat by Pulse Oximetry 94 O2 Sat by Pulse Oximetry 94 Intake and Output: Intake & Output 03/31/23 04/01/23 04/02/23 04/03/23 11:59 11:59 11:59 11:59 Intake Total 920 / 920 2164 / 2164 1688 / 1688 Balance 920 / 920 2164 / 2164 1688 / 1688 Physical Exam Oriented: Normal Eyes: Normal Ear: Normal Nose: Discharge Throat: Red Respiratory: Wheezes and Rhonchi Cardiovascular: Normal : Normal Auscultation: Bowel Sounds: Normal Tenderness: Normal Skin: Decreased [place] Musculoskeletal: Motor Deficit Psychiatric: Anxiety Affect: Anxious Speech Pattern: Clear and Appropriate Laboratory and Diagnostics 04/02/23 05:08 04/02/23 05:08 Labs: Laboratory WBC 7.1 X10^3/uL (3.6-10.0) 04/02/23 05:08 RBC 4.25 X10^6/uL (4.7-6.0) L 04/02/23 05:08 Hgb 13.2 g/dL (13.5-18.0) L 04/02/23 05:08 Hct 39.2 % (42.0-54.0) L 04/02/23 05:08 MCV 92.2 fL (80.0-100.0) 04/02/23 05:08 MCH 31.0 pg (27.0-34.0) 04/02/23 05:08 MCHC 33.6 g/dL (33.0-35.0) 04/02/23 05:08 RDW 13.8 % (11.6-16.5) 04/02/23 05:08 Plt Count 279 X10^3/uL (150.0-450.0) 04/02/23 05:08 Plt Count Comment Adequate (ADEQUATE) 04/02/23 05:08 MPV 8.9 fL (7.4-11.0) 04/02/23 05:08 Neut % (Auto) 91.2 % (42.0-75.0) H 04/02/23 05:08 Lymph % (Auto) 6.2 % (21.0-51.0) L 04/02/23 05:08 [place] % (Auto) 2.5 % (0.0-13.0) 04/02/23 05:08 Eos % (Auto) 0.0 % (0.9-2.9) L 04/02/23 05:08 Baso % (Auto) 0.1 % (0.2-1.0) L 04/02/23 05:08 Neut # (Auto) 6.5 x10^3/uL (2.2-4.8) H 04/02/23 05:08 Lymph # (Auto) 0.4 X10^3/uL (1.3-2.9) L 04/02/23 05:08 [place] # (Auto) 0.2 x10^3/uL (0.3-0.8) L 04/02/23 05:08 Eos # (Auto) 0.0 x10^3/uL (0.0-0.2) 04/02/23 05:08 Baso # (Auto) 0.0 X10^3/uL (0.0-0.1) 04/02/23 05:08 Absolute Nucleated RBC 0.0 /100WBC 04/02/23 05:08 Total Counted 100 04/02/23 05:08 Neutrophils % (Manual) 85 % (39-76) H 04/02/23 05:08 Band Neutrophils % 2 % (0-10) 04/02/23 05:08 Lymphocytes % (Manual) 9 % (13-43) L 04/02/23 05:08 Monocytes % (Manual) 4 % (4-9) 04/02/23 05:08 Plt Morphology Comment Normal (NORMAL) 04/02/23 05:08 RBC Morphology Normal (NORMAL) 04/02/23 05:08 D-Dimer 0.59 ug/ml (0.0-0.57) H 03/31/23 08:52 Sodium 137 mmol/L (136-145) 04/02/23 05:08 Corrected Sodium 139 mmol/L (136-145) 04/02/23 05:08 Potassium 4.5 mmol/L (3.5-5.1) 04/02/23 05:08 Chloride 103 mmol/L (98-107) 04/02/23 05:08 Carbon Dioxide 23.6 mmol/L (21-32) 04/02/23 05:08 BUN 20 mg/dL (7-18) H 04/02/23 05:08 Creatinine 1.36 mg/dL (0.70-1.30) H 04/02/23 05:08 Est GFR (MDRD) Af Amer > 60 (>60) 04/02/23 05:08 Est GFR (MDRD) Non-Af 53 (>60) L 04/02/23 05:08 Glucose 202 mg/dL (65-99) H 04/02/23 05:08 POC Glucose (mg/dL) 286 mg/dL (65-99) H 04/02/23 16:11 Lactic Acid 1.5 mmol/L (0.4-2.0) 03/31/23 08:50 Calcium 8.3 mg/dL (8.5-10.1) L 04/02/23 05:08 Corrected Calcium 9.3 mg/dL (8.5-10.1) 04/02/23 05:08 Magnesium 2.3 mg/dL (2.0-2.9) 04/02/23 05:08 Total Bilirubin 0.30 mg/dL (0.2-1.0) 04/02/23 05:08 AST 20 Units/L (15-37) 04/02/23 05:08 ALT 16 Units/L (12-78) 04/02/23 05:08 Alkaline Phosphatase 89 Units/L (46-116) 04/02/23 05:08 Creatine Kinase 60 Units/L (39-308) 03/31/23 08:52 Troponin I High Sens 6.6 ng/L (4.0-60.0) 03/31/23 08:52 Total Protein 7.0 g/dL (6.4-8.2) 04/02/23 05:08 Albumin 2.7 g/dL (3.4-5.0) L 04/02/23 05:08 Globulin 4.3 g/dL (2.5-4.5) 04/02/23 05:08 Albumin/Globulin Ratio 0.6 Ratio (1.1-2.1) L 04/02/23 05:08 SARS-CoV-2 (PCR) Positive (NEGATIVE) A 03/31/23 08:29 Influenza Type A (PCR) Negative (NEGATIVE) 03/31/23 08:29 Influenza Type B (PCR) Negative (NEGATIVE) 03/31/23 08:29 RSV (PCR) Negative (NEGATIVE) 03/31/23 08:29 Plan (1) COVID-19 virus infection: Status: Acute Narrative Support Text: CONTINUE IV ATBX, RESP THERAPY SUPPLEMENTAL O2, ANTITUSSIVES DUO NEBS, CT LUNGS TODAY GENTLE IV HYDRATION BS CONTROL (2) Hypoxia: Status: Acute (3) Shortness of breath: Status: Acute (4) Diabetes: Status: Chronic Qualifiers: Diabetes mellitus type: type 2 Diabetes mellitus complication detail: with polyneuropathy (5) Hypertension: Status: Chronic Qualifiers: Hypertension type: essential hypertension Qualified Code(s): I10 - Essential (primary) hypertension (6) BPH (benign prostatic hypertrophy): Status: Chronic
[2023-04-03] MEDS ORDERED: GLUCOPHAGE ONE (04:09)
[2023-04-03 04:28] VITALS: RESP 18
[2023-04-03 06:33] LABS: BASOPHILS % (AUTO) 0.1 % (0.2-1.0); HEMATOCRIT 39.1 % (42.0-54.0); LYMPHOCYTES # (AUTO) 0.8 X10^3/uL (1.3-2.9); LYMPHOCYTES % (AUTO) 5.1 % (21.0-51.0); MEAN CORPUSCULAR HEMOGLOBIN 30.6 pg (27.0-34.0); MEAN CORPUSCULAR HGB CONC 33.1 g/dL (33.0-35.0); MEAN CORPUSCULAR VOLUME 92.3 fL (80.0-100.0); MEAN PLATELET VOLUME 8.8 fL (7.4-11.0); MONOCYTES # (AUTO) 1.3 x10^3/uL (0.3-0.8); MONOCYTES % (AUTO) 8.2 % (0.0-13.0); NEUTROPHILS # (AUTO) 13.7 x10^3/uL (2.2-4.8); NEUTROPHILS % (AUTO) 86.6 % (42.0-75.0); PLATELET COUNT 303 X10^3/uL (150.0-450.0); RED BLOOD COUNT 4.24 X10^6/uL (4.7-6.0); RED CELL DISTRIBUTION WIDTH 13.8 % (11.6-16.5); WHITE BLOOD COUNT 15.9 X10^3/uL (3.6-10.0)
[2023-04-03 06:40] LABS: ALBUMIN 2.8 g/dL (3.4-5.0); CALCIUM 8.5 mg/dL (8.5-10.1); CARBON DIOXIDE 21.2 mmol/L (21-32); COR CA(FOR HYPOALB) 9.5 mg/dL (8.5-10.1); CREATININE 1.57 mg/dL (0.70-1.30); POTASSIUM 4.7 mmol/L (3.5-5.1)
[2023-04-03 09:24] VITALS: O2SAT 92
[2023-04-03 09:45] VITALS: BP 135/62; PULSE 83; TEMP 98.3
--- NOTE | 2023-04-03 17:20 | PCM.DCPLAN ---
DISCHARGE SUMMARY Admission Date Date of Admission: 03/31/23 Discharge Date Discharge Date: 04/03/23 Admission Diagnoses (1) COVID-19 virus infection: Status: Acute (2) Hypoxia: Status: Acute (3) Shortness of breath: Status: Acute (4) Diabetes: Status: Chronic (5) Hypertension: Status: Chronic (6) BPH (benign prostatic hypertrophy): Status: Chronic Discharge Diagnoses Discharge Diagnosis: SAME ADMISSION, RESOLVED SOB Discharge Medications Discharge Medications: Home Medication List amitriptyline 10 mg tablet 10 mg PO QPM 03/31/23 [History] azithromycin 250 mg tablet 250 mg PO DIRECTED 03/31/23 [History] azithromycin 250 mg tablet 250 mg PO QDAY 6 days #6 tabs 04/03/23 [Rx] Prescriptions: JOSE CRUZ [facility] Hospital Course Vital Signs: Vital Signs Temperature 98.3 F Pulse Rate [Brachial] 83 Pulse Rate 76 Respiratory Rate 18 Blood Pressure [Left Arm] 135/62 O2 Sat by Pulse Oximetry 92 O2 Sat by Pulse Oximetry 94 Latest Lab Results: Laboratory Last Values WBC 15.9 X10^3/uL (3.6-10.0) H D 04/03/23 05:39 RBC 4.24 X10^6/uL (4.7-6.0) L 04/03/23 05:39 Hgb 13.0 g/dL (13.5-18.0) L 04/03/23 05:39 Hct 39.1 % (42.0-54.0) L 04/03/23 05:39 MCV 92.3 fL (80.0-100.0) 04/03/23 05:39 MCH 30.6 pg (27.0-34.0) 04/03/23 05:39 MCHC 33.1 g/dL (33.0-35.0) 04/03/23 05:39 RDW 13.8 % (11.6-16.5) 04/03/23 05:39 Plt Count 303 X10^3/uL (150.0-450.0) 04/03/23 05:39 Plt Count Comment Adequate (ADEQUATE) 04/02/23 05:08 MPV 8.8 fL (7.4-11.0) 04/03/23 05:39 Neut % (Auto) 86.6 % (42.0-75.0) H 04/03/23 05:39 Lymph % (Auto) 5.1 % (21.0-51.0) L 04/03/23 05:39 [place] % (Auto) 8.2 % (0.0-13.0) 04/03/23 05:39 Eos % (Auto) 0.0 % (0.9-2.9) L 04/03/23 05:39 Baso % (Auto) 0.1 % (0.2-1.0) L 04/03/23 05:39 Neut # (Auto) 13.7 x10^3/uL (2.2-4.8) H 04/03/23 05:39 Lymph # (Auto) 0.8 X10^3/uL (1.3-2.9) L 04/03/23 05:39 [place] # (Auto) 1.3 x10^3/uL (0.3-0.8) H 04/03/23 05:39 Eos # (Auto) 0.0 x10^3/uL (0.0-0.2) 04/03/23 05:39 Baso # (Auto) 0.0 X10^3/uL (0.0-0.1) 04/03/23 05:39 Absolute Nucleated RBC 0.0 /100WBC 04/03/23 05:39 Total Counted 100 04/02/23 05:08 Neutrophils % (Manual) 85 % (39-76) H 04/02/23 05:08 Band Neutrophils % 2 % (0-10) 04/02/23 05:08 Lymphocytes % (Manual) 9 % (13-43) L 04/02/23 05:08 Monocytes % (Manual) 4 % (4-9) 04/02/23 05:08 Plt Morphology Comment Normal (NORMAL) 04/02/23 05:08 RBC Morphology Normal (NORMAL) 04/02/23 05:08 D-Dimer 0.59 ug/ml (0.0-0.57) H 03/31/23 08:52 Sodium 137 mmol/L (136-145) 04/03/23 05:39 Corrected Sodium 139 mmol/L (136-145) 04/03/23 05:39 Potassium 4.7 mmol/L (3.5-5.1) 04/03/23 05:39 Chloride 104 mmol/L (98-107) 04/03/23 05:39 Carbon Dioxide 21.2 mmol/L (21-32) 04/03/23 05:39 BUN 31 mg/dL (7-18) H 04/03/23 05:39 Creatinine 1.57 mg/dL (0.70-1.30) H 04/03/23 05:39 Est GFR (MDRD) Af Amer 54 (>60) L 04/03/23 05:39 Est GFR (MDRD) Non-Af 45 (>60) L 04/03/23 05:39 Glucose 175 mg/dL (65-99) H 04/03/23 05:39 POC Glucose (mg/dL) 177 mg/dL (65-99) H 04/03/23 05:32 Lactic Acid 1.5 mmol/L (0.4-2.0) 03/31/23 08:50 Calcium 8.5 mg/dL (8.5-10.1) 04/03/23 05:39 Corrected Calcium 9.5 mg/dL (8.5-10.1) 04/03/23 05:39 Magnesium 2.3 mg/dL (2.0-2.9) 04/02/23 05:08 Total Bilirubin 0.20 mg/dL (0.2-1.0) 04/03/23 05:39 AST 22 Units/L (15-37) 04/03/23 05:39 ALT 12 Units/L (12-78) 04/03/23 05:39 Alkaline Phosphatase 89 Units/L (46-116) 04/03/23 05:39 Creatine Kinase 60 Units/L (39-308) 03/31/23 08:52 Troponin I High Sens 6.6 ng/L (4.0-60.0) 03/31/23 08:52 Total Protein 7.0 g/dL (6.4-8.2) 04/03/23 05:39 Albumin 2.8 g/dL (3.4-5.0) L 04/03/23 05:39 Globulin 4.2 g/dL (2.5-4.5) 04/03/23 05:39 Albumin/Globulin Ratio 0.7 Ratio (1.1-2.1) L 04/03/23 05:39 SARS-CoV-2 (PCR) Positive (NEGATIVE) A 03/31/23 08:29 Influenza Type A (PCR) Negative (NEGATIVE) 03/31/23 08:29 Influenza Type B (PCR) Negative (NEGATIVE) 03/31/23 08:29 RSV (PCR) Negative (NEGATIVE) 03/31/23 08:29 Resp Viral Panel (PCR) See scanned report 03/31/23 13:00 Hospital Course: This is a 88 white male, ER admission after presenting for evaluation of weakness and shortness of breath as directed by PCP. He had been sick for over a week with respiratory symptoms and failed outpatient treatment. He tested positive for Covid-19 in the ER and chest xray revealed left sided pneumonia. He was started on antibiotics and antiviral medication. He has a PMH of htn, bph, gerd, DM type 2, history of CVA, and RA. He did receive low dose solumedrol for wheezing, which elevated blood sugar- averaging around 200. It is back at baseline of around 150. His baseline renal function is normal per outpatient labs, elevated during hospital stay. BUN 31/Creatinine 1.57 this morning. He has been treated with gentle IV hydration. Overall, the patient had improvement in respiratory symptoms and weakness. He states that he is feeling much improved so we allowed him to discharge home on PO antibiotics. He has a follow up appointment with PCP on 04/09/23 at 8:30AM. The patient was instructed to return to the ER if condition changed or worsened unexpectedly. He denied any chest pain or shortness of breath at the time of discharge.
== END 2023-04-03 11:55 | disposition home or self-care (01) | DRG 177 ==
LOC: ER 08:14 → MED/SURG 08:14 → OBSVTOIN 10:24 → MED/SURG 11:35
PROVIDERS: ADMIT Internal Medicine; ATTEND Internal Medicine
DX: E11.42 Type 2 diabetes mellitus with diabetic polyneuropathy; I25.10 Atherosclerotic heart disease of native coronary artery without angina pectoris; E86.0 Dehydration; N40.0 Benign prostatic hyperplasia without lower urinary tract symptoms; E83.42 Hypomagnesemia; R53.1 Weakness; E11.65 Type 2 diabetes mellitus with hyperglycemia; U07.1 COVID-19; N17.8 Other acute kidney failure; I10 Essential (primary) hypertension; J12.82 Pneumonia due to coronavirus disease 2019; R06.02 Shortness of breath; R09.02 Hypoxemia

== ENCOUNTER 2023-04-10 11:21 | Inpatient (IN) ==
[2023-04-10] MEDS ORDERED: MILK OF MAGNESIA PO PRN (18:38)
[2023-04-10] MEDS ORDERED: GLUCOPHAGE ONE (19:22)
[2023-04-10] MEDS: AUGMENTIN 875 MG/125 MG TAB PO SCH (20:17)
[2023-04-10] MEDS: GLUCOPHAGE PO SCH (20:18)
[2023-04-10] MEDS ORDERED: MILK OF MAGNESIA PO SCH (21:00)
[2023-04-10] MEDS ORDERED: LEVEMIR SC SCH (21:00)
[2023-04-10] MEDS: LOPRESSOR TAB 25 MG PO SCH (21:38)
[2023-04-10] MEDS: FLOMAX PO SCH (21:42)
[2023-04-10] MEDS: ZOCOR TAB 20 MG PO SCH (21:43)
[2023-04-10] MEDS: ELAVIL PO SCH (21:43)
[2023-04-10] MEDS: COLACE CAP 100 MG PO SCH (21:43)
[2023-04-10] MEDS: NovoLIN R (or HumuLIN R) SUBCUT PRN (21:47)
[2023-04-10] MEDS: SNACK - Diabetic Appropriate PO SCH (21:48)
[2023-04-11 06:00] LABS: BASOPHILS # (AUTO) 0.1 X10^3/uL (0.0-0.1); BASOPHILS % (AUTO) 0.4 % (0.2-1.0); EOSINOPHILS # (AUTO) 0.1 x10^3/uL (0.0-0.2); EOSINOPHILS % (AUTO) 0.6 % (0.9-2.9); HEMATOCRIT 35.9 % (42.0-54.0); HEMOGLOBIN 12.2 g/dL (13.5-18.0); LYMPHOCYTES # (AUTO) 0.9 X10^3/uL (1.3-2.9); LYMPHOCYTES % (AUTO) 5.3 % (21.0-51.0); MEAN CORPUSCULAR HEMOGLOBIN 30.7 pg (27.0-34.0); MEAN CORPUSCULAR HGB CONC 33.8 g/dL (33.0-35.0); MEAN CORPUSCULAR VOLUME 90.8 fL (80.0-100.0); MEAN PLATELET VOLUME 9.4 fL (7.4-11.0); MONOCYTES # (AUTO) 2.6 x10^3/uL (0.3-0.8); MONOCYTES % (AUTO) 15.6 % (0.0-13.0); NEUTROPHILS # (AUTO) 13.3 x10^3/uL (2.2-4.8); NEUTROPHILS % (AUTO) 78.1 % (42.0-75.0); PLATELET COUNT 409 X10^3/uL (150.0-450.0); RED BLOOD COUNT 3.96 X10^6/uL (4.7-6.0); RED CELL DISTRIBUTION WIDTH 13.4 % (11.6-16.5)
[2023-04-11 06:14] LABS: ALBUMIN 1.8 g/dL (3.4-5.0); CALCIUM 8.1 mg/dL (8.5-10.1); CARBON DIOXIDE 25.5 mmol/L (21-32); COR CA(FOR HYPOALB) 9.9 mg/dL (8.5-10.1); CREATININE 1.48 mg/dL (0.70-1.30); POTASSIUM 3.5 mmol/L (3.5-5.1); TOTAL PROTEIN 6.5 g/dL (6.4-8.2)
[2023-04-11] MEDS ORDERED: CONSULT PHARMACY - POTASSIUM & MAGNESIUM XX SCH (07:00)
[2023-04-11] MEDS: CONSULT PHARMACY - POTASSIUM & MAGNESIUM XX SCH (07:03)
[2023-04-11] MEDS ORDERED: GLUCOPHAGE ONE ×2 (08:19→20:11)
[2023-04-11] MEDS: LOVENOX INJ 40 MG SYR SC SCH (08:33)
[2023-04-11] MEDS: K-DUR TAB 20 MEQ PO SCH (08:33)
[2023-04-11] MEDS: PROTONIX TAB 40 MG PO SCH (08:33)
[2023-04-11] MEDS: LEVEMIR SC SCH (08:34)
--- NOTE | 2023-04-11 11:21 | PT/OTEVAL ---
PT/OT OBJECTIVES - HISTORY Prescription: PT Consult Diagnosis: s/p R Hip Fracture and Total Hip Replacement Precautions: WBAT RLE, Posterior Hip Precautions, Fall Risk, Poor Safety Awareness PMH: Arthritis, Coronary Artery Disease, CVA, Diabetes, Dyslipidemia, Hypertension, Kidney Stones, BPH, Diabetic Neuropathy. Surgical History: Angioplasty/Stents and Other Prior Level of Function: Independent Other: Pt was able to provide PLOF. Per pt report, pt lives alone in a one story home with 2 steps to enter and no handrails. Pts son and grandsons are nearby to help if needed. Pt has a walker avaliable, and reports he used it occasionally prior to his recent fall. Pts PLOF was independent with all ADLs and driving. Reports no other DME. History of Present Illness: Pt is an 88 year old male, that was recently admitted to [facility] on 03/31/2023, with diagnosis of COVID and hypoxia. Pt was discharged from [facility] on 04/03/2023 to return [facility]. Once home, pt fell and landed on R hip causing a fracture. Pt reported to [facility] in [place] on 04/05/2023, and recieved a hemiarthroplasty on the same day. Pt has returned to [facility] swing bed to participate in rehab. - COGNITION Mental Status: Alert, Oriented, Name, Date, Place, Purpose, Decreased Safety Awarenes Communication Status: Verbal, Hard of Hearing Ability to Follow Directions: 2 Step Memory Loss: None Affect: Calm - PAIN Right Hip Pain Scale: Moderate Comments: Pt reports 06/28 pain - BED MOBILITY Rolling: Moderate Scooting: Minimal Bridging: Not Tested - TRANSFERS Supine to Sit: Moderate, x2 Sit to Stand: Minimal Sit or Stand Pivot: Minimal Toileting: Not Tested Safety (requires cues for:): Hip Precautions, Hand Placement Precaution - BALANCE Dynamic Sitting: Good Standing: Poor Static Sitting: Good Standing: Fair - NEUROMOTOR/SENSATION Right Lower Ext Sensation: WFL Coordination: WFL Proprioception: WFL Left Lower Ext Sensation: WFL Coordination: WFL Proprioception: WFL - ROM Right LE ROM: Impaired Muscle Tone: Impaired Comment: Impaired due to hip precautions Left LE ROM: WFL Muscle Tone: WFL - STRENGTH Right LE Strength Number: 3 Other comment: 3-/5 Left LE Strength Number: 4 Other comment: 4+/5 - GAIT Pt. ambulates how many feet?: 30 Amount of Assistance Required: Minimal Type of Assistive Device: Rolling Walker Comments: Min assist for ambulation - OBJECTIVE MEASURES & STANDARDS Objective Measures & Standards: 30 Second Sit to Stand: 0 - TREATMENT Date: 04/11/23 Time: 08:30 Treatment Type: Evaluation Treatment Provided: Gait, Therapeutic Activities, Therapeutic Excersises - TOTAL TREATMENT TIME Total Time: 60 - POST ASSESSMENT Post Assessment Comment: Pt was found supine in bed, and agreeable to PT services at this time. Pt needed moderate assist x2 for bed mobility with verbal cuing to reach hand to handrail in order to roll over. Once transfering from supine to sitting, pt was able to sit on the edge with contact gaurd assist for safety. When asked if pt knew the hip precautions to follow, he stated that he "didn't know them", so education was provided on the appropriate hip precautions. Pt was able to transition from sitting to standing with minimal assist and verbal cuing for proper hand placement. Pt ambulated 30ft with contact guard assist for safety, and returned to the recliner chair where therex was attempted (LAQs x10) but pt reported that he was too tired to complete them. Pt was able to bath himself while seated in the recliner chair, and was left in recliner chair with call light in reach, and alarm set. CNAs notified of pt's mobility status. - EXIT DISPOSITION Exit Position: CHAIR Call light in reach: Yes Bed Alarm On: YES Comments: Chair alarm was set on. PT/OT ASSESSMENT - PT Problem List: Decreased Bed Mobility, Decreased Transfers, Decreased Gait, Decreased Balance, Decreased Safety, Decreased LE Strength - OT Problem List: Other - PT GOALS Short Term Goals Days: 10 Mobility: Pt will perform bed mobility tasks with min assist Transfers: Pt will perform functional transfers with supervision Gait: Pt will ambulate 100ft with FWW with min assist Balance: Pt will increase dynamic standing balance to fair+ ROM/Strength: Pt will increase R LE strength by 1 MMT grade & LLE to 5/5 Others: Pt will be able to recall 3/3 posterior hip precautions Concreter Goals Days: 20 Mobility: Pt will perform bed mobility tasks with mod I Transfers: Pt will perform functional transfers with mod I Gait: Pt will ambulate 200ft with FWW with mod I Balance: Pt will increase dynamic standing balance to good ROM/Strength: Pt will increase R LE strength to 5/5 Others: Pt will ascend and descend 2 steps with supervision - PATIENT GOALS Patient/Family Goals: "I want to go home" Goals Discussed with Patient/Family: Yes Rehabilitation Potential: Good to meet stated goals Justification for Potential: To faciliate the highest level of function and safe discharge planning If yes, explain: Hard of hearing - PLAN Suggested Treatment Plan: Bed Mobility Training, Therapeutic Activity, Gait Training, Neuro Re-education, Therapeutic Ex with HEP, Home Management, Patient Education, Family Education - FREQUENCY AND DURATION PT: 5-6x week x 20 days Expected Continuation of Care at Discharge: Home Health
[2023-04-11] MEDS: NORCO 5/325 MG TAB PO PRN (11:24)
--- NOTE | 2023-04-11 14:08 | RAD ---
EXAM:CHEST, 1 VIEWHISTORY:HX PNEUMONIA ;COMPARISON:Prior study or studies were utilized for comparison during interpretation with the most relevant dated 04/02/2023TECHNIQUE:CHEST, 1 VIEWFINDINGS:Chest:Lines and tubes: Left-sided implanted port with catheter tip in satisfactory positionMediastinum: Cardiac and mediastinal shadow is within normal limits for size and contour.Pulmonary vessels: No pulmonary vascular congestion.Lung guidry: Similar peripheral airspace opacities are noted.Pleura: No effusion. No pneumothorax.Bones and soft tissues: No acute osseous or soft tissue abnormality.IMPRESSION:1. Peripheral airspace opacities are again demonstrated without significant change from 04/02/2023THIS IS AN ELECTRONICALLY VERIFIED FINAL REPORT04/11/2023 2:04 PM - Electronically signed by Augie Fowler MD
[2023-04-11] MEDS: COZAAR PO SCH (18:30)
[2023-04-11] MEDS: NORVASC TAB 5 MG PO SCH (18:30)
[2023-04-12] MEDS ORDERED: BUTT CREAM (COMPOUND) TOP PRN (02:11)
[2023-04-12] MEDS ORDERED: GLUCOPHAGE ONE ×2 (08:04→19:56)
[2023-04-12] MEDS: LOPRESSOR TAB 25 MG PO SCH (09:45)
--- NOTE | 2023-04-12 12:43 | DR.UPDATE ---
H&P UPDATE Review Yes Any changes to H&P?: Yes Changes noted:: Right hip fracture s/p repair at [facility] in [place], [place] Patient was examined?: Yes
--- NOTE | 2023-04-12 12:43 | PCM.PROG ---
Progress Note Progress Note for Day of Date of Exam: 04/12/23 Subjective Subjective: Pt is an 88 year old male, who is swing bed status for rehab after a recent fall causing right hip fracture. He is s/p repair at [facility]. He had been recently admitted to [facility] on 03/31/2023, with diagnosis of COVID and hypoxia. Pt was discharged from [facility] on 04/03/2023 to return home. Once home, pt fell and landed on R hip causing a fracture. Pt reported to [facility] in [place] on 04/05/2023, and received a hemiarthroplasty on the same day. During his stay at [facility], he was noted to have acute hypoxic respiratory failure secondary to pneumonia and was treated with vancomycin and cefepime. He was discharged on po augmentin, which we have continued. He had a repeat chest xray yesterday that showed peripheral airspace opacities without significant change from 04/02/23. He was discharged with dominguez catheter due to urinary retention. We will plan to attempt discontinuation. Labs on 04/11/23 showed WBC 17, HGB 12.2, BUN 26/Creatinine 1.48, AST 118, ALT 105. Morning vitals are 128/60-69-18-97.8-95% on 2L via NC. He is a type 2 Diabetic and is on sliding scale coverage. He is working with PT/OT and tolerating well. Past Medical Family Social History Allergies: Allergies zolpidem Adverse Reaction (Verified 08/28/16 08:57) Vital Signs and I&O's Vital Signs: Vital Signs Temperature 97.8 F Pulse Rate [Right Brachial] 69 Respiratory Rate 18 Blood Pressure [Right Arm] 128/60 O2 Sat by Pulse Oximetry 95 Intake and Output: Intake & Output 04/09/23 04/10/23 04/11/23 04/12/23 11:59 11:59 11:59 11:59 Intake Total 240 / 240 580 / 580 Output Total 400 / 400 1000 / 1000 Balance -160 / -160 -420 / -420 Physical Exam Oriented: Normal Eyes: Normal Ear: Normal Nose: Normal Throat: Normal Cardiovascular: Normal : Normal Palpation: Normal Tenderness: Normal Skin: Normal Musculoskeletal: Hip and Back:Lumbar Psychiatric: Normal Mood Description: Calm Affect: Normal Speech Pattern: Clear Laboratory and Diagnostics 04/11/23 05:23 02/21/24 05:23 Labs: Laboratory WBC 17.0 X10^3/uL (3.6-10.0) H 04/11/23 05:23 RBC 3.96 X10^6/uL (4.7-6.0) L 04/11/23 05:23 Hgb 12.2 g/dL (13.5-18.0) L 04/11/23 05:23 Hct 35.9 % (42.0-54.0) L 04/11/23 05:23 MCV 90.8 fL (80.0-100.0) 04/11/23 05:23 MCH 30.7 pg (27.0-34.0) 04/11/23 05:23 MCHC 33.8 g/dL (33.0-35.0) 04/11/23 05:23 RDW 13.4 % (11.6-16.5) 04/11/23 05:23 Plt Count 409 X10^3/uL (150.0-450.0) 04/11/23 05:23 MPV 9.4 fL (7.4-11.0) 04/11/23 05:23 Neut % (Auto) 78.1 % (42.0-75.0) H 04/11/23 05:23 Lymph % (Auto) 5.3 % (21.0-51.0) L 04/11/23 05:23 [place] % (Auto) 15.6 % (0.0-13.0) H 04/11/23 05:23 Eos % (Auto) 0.6 % (0.9-2.9) L 04/11/23 05:23 Baso % (Auto) 0.4 % (0.2-1.0) 04/11/23 05:23 Neut # (Auto) 13.3 x10^3/uL (2.2-4.8) H 04/11/23 05:23 Lymph # (Auto) 0.9 X10^3/uL (1.3-2.9) L 04/11/23 05:23 [place] # (Auto) 2.6 x10^3/uL (0.3-0.8) H 04/11/23 05:23 Eos # (Auto) 0.1 x10^3/uL (0.0-0.2) 04/11/23 05:23 Baso # (Auto) 0.1 X10^3/uL (0.0-0.1) 04/11/23 05:23 Absolute Nucleated RBC 0.1 /100WBC 04/11/23 05:23 Sodium 137 mmol/L (136-145) 04/11/23 05:23 Corrected Sodium 140 mmol/L (136-145) 04/11/23 05:23 Potassium 3.5 mmol/L (3.5-5.1) 04/11/23 05:23 Chloride 98 mmol/L (98-107) 04/11/23 05:23 Carbon Dioxide 25.5 mmol/L (21-32) 04/11/23 05:23 BUN 26 mg/dL (7-18) H 04/11/23 05:23 Creatinine 1.48 mg/dL (0.70-1.30) H 04/11/23 05:23 Est GFR (MDRD) Af Amer 58 (>60) L 04/11/23 05:23 Est GFR (MDRD) Non-Af 48 (>60) L 04/11/23 05:23 Glucose 225 mg/dL (65-99) H 04/11/23 05:23 POC Glucose (mg/dL) 84 mg/dL (65-99) 04/12/23 05:05 Calcium 8.1 mg/dL (8.5-10.1) L 04/11/23 05:23 Corrected Calcium 9.9 mg/dL (8.5-10.1) 04/11/23 05:23 Magnesium 2.0 mg/dL (2.0-2.9) 04/11/23 05:23 Total Bilirubin 0.80 mg/dL (0.2-1.0) 04/11/23 05:23 AST 118 Units/L (15-37) H 04/11/23 05:23 ALT 105 Units/L (12-78) H 04/11/23 05:23 Alkaline Phosphatase 89 Units/L (46-116) 04/11/23 05:23 Total Protein 6.5 g/dL (6.4-8.2) 04/11/23 05:23 Albumin 1.8 g/dL (3.4-5.0) L 04/11/23 05:23 Globulin 4.7 g/dL (2.5-4.5) H 04/11/23 05:23 Albumin/Globulin Ratio 0.4 Ratio (1.1-2.1) L 04/11/23 05:23 Plan (1) Hip fracture requiring operative repair: Status: Acute Narrative Support Text: CONTINUE PT/OT, ROUTINE LABS PER PROTOCOL, PO ABX, SUPPLEMENTAL O2 PRN. (2) Diabetes: Status: Chronic Qualifiers: Diabetes mellitus complication detail: with polyneuropathy Diabetes mellitus type: type 2 (3) Hyperlipidemia: Status: Chronic (4) Hypertension: Status: Chronic Qualifiers: Hypertension type: essential hypertension Qualified Code(s): I10 - Essential (primary) hypertension (5) Hypoxia: Status: Acute (6) Benign prostatic hyperplasia: Status: Chronic Qualifiers: Lower urinary tract symptom presence: symptoms absent Qualified Code( s): N40.0 - Benign prostatic hyperplasia without lower urinary tract symptoms
--- NOTE | 2023-04-12 12:46 | PT/OTEVAL ---
PT/OT OBJECTIVES - HISTORY Prescription: OT Consult Diagnosis: s/p R hip fx and total hip peplacement Precautions: WBAT RLE, Posterior hip precautions, fall risk, poor safety awareness PMH: PMH is significant but not limited to arthritis, CAD, CVA, DM, dyslipidemia, HTN, kidney stones, BPH, diabetic neuropathy. SMH includes angioplasty/stents and other. Prior Level of Function: Independent Other: Per pt report pt lives alone in a 1 story home with 2 steps with no handrails. Pt has a son and grandsons close by to assist when needed. He has a walker however, reports that he only uses it occasionally prior to fall. Pt reports he is (I) with ADLs and IADLs, and is still driving. No other DME is reported. History of Present Illness: Pt is a 88 year old male who was recently admitted to [facility] on 03/31/23 with dx of COVID and hypoxia. Pt was d/cd from [facility] on 04/03/23 home. Once home, pt had a fall and landed on R hip causing a fx. Pt reported to [facility] in [place] on 04/05/23 and recieved a hemiarthroplasty on the same day. Pt has returned to [facility] on swingbed to participate in therapy services. - COGNITION Mental Status: Alert, Oriented, Name, Date, Place, Purpose Communication Status: Verbal, Hard of Hearing Ability to Follow Directions: 2 Step Memory Loss: None Affect: Calm - PAIN Right Hip Pain Scale: Moderate Comments: Pt reports 08/28 pain - BED MOBILITY Rolling: Moderate Scooting: Minimal - TRANSFERS Supine to Sit: Moderate Sit to Stand: Minimal Sit or Stand Pivot: Minimal Toileting: Not Tested Toileting comment: Has dominguez cath Safety (requires cues for:): Hip Precautions, Hand Placement Precaution - ADL'S Upper Body ADL: Supervision Lower Body ADL: Maximum Bathing: Maximum Hygeine: Minimum - BALANCE Dynamic Sitting: Good Standing: Poor Balance Comment: Fair- Static Sitting: Good Standing: Fair - NEUROMOTOR/SENSATION Left Lower Ext Sensation: WFL Coordination: WFL Proprioception: WFL Right Lower Ext Sensation: WFL Coordination: WFL Proprioception: WFL Jesus. Upper Ext Sensation: WFL Coordination: WFL - HAND DOMINANCE Extremity Function: Hand Dominance: Right - ROM Bilateral UE ROM: WFL - STRENGTH Bilateral UE Strength Number: 3 - GAIT Amount of assistance required: Minimal Amount of Assistance Required: Minimal Type of Assistive Device: Rolling Walker Comments: Pt needs min A for functional AMB - OBJECTIVE MEASURES & STANDARDS Objective Measures & Standards: MBI Score29 indicating severe dependency level with ADLs - TREATMENT Date: 04/12/23 Time: 08:00 Treatment Type: Evaluation Treatment Provided: Therapeutic Activities, Other - TOTAL TREATMENT TIME Total Time: 60 - POST ASSESSMENT Post Assessment Comment: Pt was seen for skilled OT to assess CLOF. Pt was agreeable to get up out of the bed. Pt on 2L of o2. C/o pain in R hip 08/28. Supine to sit with mod A. Pt sat EOB and completed UB dressing with min A. LB dressing with max A to get on/off feet, and CGA for over bottom. Pt STS from bed with min A. Functional AMB with RW and min A completed. Pt given seated RB for fatigue and SOB. Vitals signs were taken during OT evaluation 97.2T, 82p, o2 dropped to 87% however with VC increased to 94% (his hands were cold). 125/73 BP. Pt sat up in recliner with call light within reach. - EXIT DISPOSITION Exit Position: CHAIR Call light in reach: Yes PT/OT ASSESSMENT - OT Problem List: Decreased Mobility ADL's, Decreased Safety Aware, Decreased Dressing, Decreased Bathing, Decreased Grooming, Decreased UE Strength - PT GOALS Short Term Goals Days: 10 Mobility: Pt will perform bed mobility tasks with min assist Transfers: Pt will perform functional transfers with supervision Gait: Pt will ambulate 100ft with FWW with min assist Balance: Pt will increase dynamic standing balance to fair+ ROM/Strength: Pt will increase R LE strength by 1 MMT grade & LLE to 5/5 Others: Pt will be able to recall 3/3 posterior hip precautions [employer] Goals Days: 20 Mobility: Pt will perform bed mobility tasks with mod I Transfers: Pt will perform functional transfers with mod I Gait: Pt will ambulate 200ft with FWW with mod I Balance: Pt will increase dynamic standing balance to good ROM/Strength: Pt will increase R LE strength to 5/5 Others: Pt will ascend and descend 2 steps with supervision - OT GOALS [facility]entiary Goals Days: 20 Mobility for ADL's: Pt to improve functional ADL transfers with set up A with LRAD. Safety Awareness: Pt will state 3/3 hip precautions without cues Dressing: Pt will improve LB dressing to set up A and AE PRN Bathing: Pt will increase overall bathing to set up A with demo G use of AE Grooming: Pt will be (I) with grooming standing sink side Upper Ext. Strength/Use: Pt to improve BUE MMT to 5/5 Short Term Goals Days: 10 Mobility for ADL's: Pt to improve functional ADL transfers with supv A with LRAD. Safety Awareness: Pt will improve safety awareness with R LE during transfers Dressing: Pt will improve LB dressing to supv A and AE PRN Bathing: Pt will increase bathing to min A with demo G use of AE Grooming: Pt will be supv A with grooming standing sink side Upper Ext. Strength/Use: Pt to improve BUE MMT to 4/5 - PATIENT GOALS Patient/Family Goals: To go back home Goals Discussed with Patient/Family: Yes Rehabilitation Potential: Good to meet stated goals Justification for Potential: To facilitate highest level of ADL function needed for safe d/c planning. - PLAN Suggested Treatment Plan: Therapeutic Activity, Self Care Training, Neuro Re- education, Therapeutic Ex with HEP, Patient Education - FREQUENCY AND DURATION OT: 4-5x a week x 20 days Expected Continuation of Care at Discharge: Home Health
[2023-04-13 06:16] LABS: BASOPHILS # (AUTO) 0.1 X10^3/uL (0.0-0.1); EOSINOPHILS # (AUTO) 0.1 x10^3/uL (0.0-0.2); HEMOGLOBIN 11.7 g/dL (13.5-18.0); MONOCYTES # (AUTO) 1.8 x10^3/uL (0.3-0.8)
[2023-04-13 06:25] LABS: BASOPHILS % (AUTO) 0.4 % (0.2-1.0); EOSINOPHILS % (AUTO) 0.9 % (0.9-2.9); HEMATOCRIT 35.3 % (42.0-54.0); LYMPHOCYTES # (AUTO) 0.8 X10^3/uL (1.3-2.9); LYMPHOCYTES % (AUTO) 5.4 % (21.0-51.0); MEAN CORPUSCULAR HEMOGLOBIN 30.5 pg (27.0-34.0); MEAN CORPUSCULAR HGB CONC 33.2 g/dL (33.0-35.0); MEAN CORPUSCULAR VOLUME 91.8 fL (80.0-100.0); MEAN PLATELET VOLUME 9.4 fL (7.4-11.0); MONOCYTES % (AUTO) 12.1 % (0.0-13.0); NEUTROPHILS # (AUTO) 12.2 x10^3/uL (2.2-4.8); NEUTROPHILS % (AUTO) 81.2 % (42.0-75.0); PLATELET COUNT 466 X10^3/uL (150.0-450.0); RED BLOOD COUNT 3.85 X10^6/uL (4.7-6.0); RED CELL DISTRIBUTION WIDTH 13.2 % (11.6-16.5)
[2023-04-13 06:29] LABS: ALANINE AMINOTRANSFERASE 76 Units/L (12-78); ALBUMIN 1.9 g/dL (3.4-5.0); ALKALINE PHOSPHATASE 88 Units/L (46-116); ASPARTATE AMINO TRANSFERASE 48 Units/L (15-37); BLOOD UREA NITROGEN 21 mg/dL (7-18); CALCIUM 8.4 mg/dL (8.5-10.1); CARBON DIOXIDE 29.5 mmol/L (21-32); CHLORIDE 100 mmol/L (98-107); COR CA(FOR HYPOALB) 10.1 mg/dL (8.5-10.1); COR NA(FOR HYPERGLY) 140 mmol/L (136-145); CREATININE 1.34 mg/dL (0.70-1.30); GLUCOSE 152 mg/dL (65-99); POTASSIUM 3.9 mmol/L (3.5-5.1); SODIUM 139 mmol/L (136-145); TOTAL PROTEIN 6.6 g/dL (6.4-8.2); eGFR NON BLACK RACES 53 (>60)
[2023-04-13 06:51] LABS: BAND NEUTROPHILS % 3 % (0-10)
[2023-04-13 06:52] LABS: METAMYELOCYTES % 1; MYELOCYTES % 1; PLATELET MORPHOLOGY COMMENT NORMAL (NORMAL)
[2023-04-13] MEDS: GLUCOPHAGE ONE ×2 (08:31→20:31)
[2023-04-13 10:41] VITALS: BMI 22.2
[2023-04-13] MEDS ORDERED: COLACE CAP 100 MG PO SCH (21:00)
[2023-04-14] MEDS: HALDOL INJ IM PRN (00:20)
[2023-04-14 05:26] LABS: BASOPHILS # (AUTO) 0.1 X10^3/uL (0.0-0.1); BASOPHILS % (AUTO) 0.6 % (0.2-1.0); EOSINOPHILS # (AUTO) 0.2 x10^3/uL (0.0-0.2); EOSINOPHILS % (AUTO) 1.1 % (0.9-2.9); HEMATOCRIT 35.7 % (42.0-54.0); HEMOGLOBIN 11.8 g/dL (13.5-18.0); LYMPHOCYTES # (AUTO) 0.8 X10^3/uL (1.3-2.9); LYMPHOCYTES % (AUTO) 5.8 % (21.0-51.0); MEAN CORPUSCULAR HEMOGLOBIN 30.6 pg (27.0-34.0); MEAN CORPUSCULAR HGB CONC 33.1 g/dL (33.0-35.0); MEAN CORPUSCULAR VOLUME 92.4 fL (80.0-100.0); MEAN PLATELET VOLUME 9.3 fL (7.4-11.0); MONOCYTES # (AUTO) 1.9 x10^3/uL (0.3-0.8); MONOCYTES % (AUTO) 12.9 % (0.0-13.0); NEUTROPHILS # (AUTO) 11.5 x10^3/uL (2.2-4.8); NEUTROPHILS % (AUTO) 79.6 % (42.0-75.0); PLATELET COUNT 475 X10^3/uL (150.0-450.0); RED BLOOD COUNT 3.87 X10^6/uL (4.7-6.0); RED CELL DISTRIBUTION WIDTH 13.5 % (11.6-16.5); WHITE BLOOD COUNT 14.5 X10^3/uL (3.6-10.0)
[2023-04-14 05:29] LABS: ALANINE AMINOTRANSFERASE 64 Units/L (12-78); ALBUMIN 1.9 g/dL (3.4-5.0); ALKALINE PHOSPHATASE 88 Units/L (46-116); ASPARTATE AMINO TRANSFERASE 42 Units/L (15-37); BLOOD UREA NITROGEN 23 mg/dL (7-18); CALCIUM 8.4 mg/dL (8.5-10.1); CHLORIDE 103 mmol/L (98-107); COR CA(FOR HYPOALB) 10.1 mg/dL (8.5-10.1); CREATININE 1.42 mg/dL (0.70-1.30); GLUCOSE 97 mg/dL (65-99); SODIUM 139 mmol/L (136-145); TOTAL PROTEIN 6.5 g/dL (6.4-8.2); eGFR NON BLACK RACES 50 (>60)
[2023-04-14 05:32] LABS: POTASSIUM 4.7 mmol/L (3.5-5.1)
[2023-04-14 05:45] LABS: PLATELET MORPHOLOGY COMMENT NORMAL (NORMAL)
[2023-04-14] MEDS ORDERED: GLUCOPHAGE ONE (08:15)
--- NOTE | 2023-04-14 12:17 | PCM.PROG ---
Progress Note Progress Note for Day of Date of Exam: 04/14/23 Subjective Subjective: Patient seen at bedside, no acute events overnight. He is currently admitted as swing bed status for rehab. He is s/p right hip fracture repair after a fall. He has been doing well. He has been working with PT as tolerated. He denies any complaints today. He is currently on room air. He has been tolerating PO intake. Labs/imaging reviewed Plan: Continue with PT as tolerated. Continue current medications. Monitor labs prn. Continue lovenox for DVT prophylaxis. Continue pain control prn. Past Medical Family Social History Allergies: Allergies zolpidem Adverse Reaction (Verified 08/28/16 08:57) Vital Signs and I&O's Vital Signs: Vital Signs Temperature 98.3 F Pulse Rate [Right Brachial] 75 Respiratory Rate 18 Blood Pressure [Left Arm] 132/69 O2 Sat by Pulse Oximetry 97 Intake and Output: Intake & Output 04/11/23 04/12/23 04/13/23 04/14/23 23:59 23:59 23:59 23:59 Intake Total 460 / 460 900 / 900 730 / 730 195 / 195 Output Total 650 / 650 2600 / 2600 1400 / 1400 1575 / 1575 Balance -190 / -190 -1700 / -1700 -670 / -670 -1380 / -1380 Physical Exam Oriented: Normal Eyes: Normal Ear: Normal Nose: Normal Throat: Normal Cardiovascular: Normal Auscultation: Bowel Sounds: Normal Tenderness: Normal Skin: Normal Musculoskeletal: Hip and Back:Lumbar Psychiatric: Normal Mood Description: Calm Affect: Normal Speech Pattern: Clear Laboratory and Diagnostics 04/14/23 04:13 04/14/23 04:13 Labs: Laboratory WBC 14.5 X10^3/uL (3.6-10.0) H 04/14/23 04:13 RBC 3.87 X10^6/uL (4.7-6.0) L 04/14/23 04:13 Hgb 11.8 g/dL (13.5-18.0) L 04/14/23 04:13 Hct 35.7 % (42.0-54.0) L 04/14/23 04:13 MCV 92.4 fL (80.0-100.0) 04/14/23 04:13 MCH 30.6 pg (27.0-34.0) 04/14/23 04:13 MCHC 33.1 g/dL (33.0-35.0) 04/14/23 04:13 RDW 13.5 % (11.6-16.5) 04/14/23 04:13 Plt Count 475 X10^3/uL (150.0-450.0) H 04/14/23 04:13 Plt Count Comment Increased (ADEQUATE) 04/14/23 04:13 MPV 9.3 fL (7.4-11.0) 04/14/23 04:13 Neut % (Auto) 79.6 % (42.0-75.0) H 04/14/23 04:13 Lymph % (Auto) 5.8 % (21.0-51.0) L 04/14/23 04:13 [place] % (Auto) 12.9 % (0.0-13.0) 04/14/23 04:13 Eos % (Auto) 1.1 % (0.9-2.9) 04/14/23 04:13 Baso % (Auto) 0.6 % (0.2-1.0) 04/14/23 04:13 Neut # (Auto) 11.5 x10^3/uL (2.2-4.8) H 04/14/23 04:13 Lymph # (Auto) 0.8 X10^3/uL (1.3-2.9) L 04/14/23 04:13 [place] # (Auto) 1.9 x10^3/uL (0.3-0.8) H 04/14/23 04:13 Eos # (Auto) 0.2 x10^3/uL (0.0-0.2) 04/14/23 04:13 Baso # (Auto) 0.1 X10^3/uL (0.0-0.1) 04/14/23 04:13 Absolute Nucleated RBC 0.1 /100WBC 04/14/23 04:13 Total Counted 100 04/14/23 04:13 Neutrophils % (Manual) 77 % (39-76) H 04/14/23 04:13 Band Neutrophils % 3 % (0-10) 04/13/23 05:09 Lymphocytes % (Manual) 7 % (13-43) L 04/14/23 04:13 Monocytes % (Manual) 13 % (4-9) H 04/14/23 04:13 Eosinophils % (Manual) 3 % (0-6) 04/14/23 04:13 Metamyelocytes % 1 04/13/23 05:09 Myelocytes % 1 04/13/23 05:09 Plt Morphology Comment Normal (NORMAL) 04/14/23 04:13 RBC Morphology Normal (NORMAL) 04/14/23 04:13 Sodium 139 mmol/L (136-145) 04/14/23 04:13 Corrected Sodium TNP 04/14/23 04:13 Potassium 4.7 mmol/L (3.5-5.1) 04/14/23 04:13 Chloride 103 mmol/L (98-107) 04/14/23 04:13 Carbon Dioxide 28.0 mmol/L (21-32) 04/14/23 04:13 BUN 23 mg/dL (7-18) H 04/14/23 04:13 Creatinine 1.42 mg/dL (0.70-1.30) H 04/14/23 04:13 Est GFR (MDRD) Af Amer > 60 (>60) 04/14/23 04:13 Est GFR (MDRD) Non-Af 50 (>60) L 04/14/23 04:13 Glucose 97 mg/dL (65-99) 04/14/23 04:13 POC Glucose (mg/dL) 134 mg/dL (65-99) H 04/14/23 11:41 Calcium 8.4 mg/dL (8.5-10.1) L 04/14/23 04:13 Corrected Calcium 10.1 mg/dL (8.5-10.1) 04/14/23 04:13 Magnesium 2.0 mg/dL (2.0-2.9) 04/11/23 05:23 Total Bilirubin 0.40 mg/dL (0.2-1.0) 04/14/23 04:13 AST 42 Units/L (15-37) H 04/14/23 04:13 ALT 64 Units/L (12-78) 04/14/23 04:13 Alkaline Phosphatase 88 Units/L (46-116) 04/14/23 04:13 Total Protein 6.5 g/dL (6.4-8.2) 04/14/23 04:13 Albumin 1.9 g/dL (3.4-5.0) L 04/14/23 04:13 Globulin 4.6 g/dL (2.5-4.5) H 04/14/23 04:13 Albumin/Globulin Ratio 0.4 Ratio (1.1-2.1) L 04/14/23 04:13 Plan (1) Hip fracture requiring operative repair: Status: Acute (2) Diabetes: Status: Chronic Qualifiers: Diabetes mellitus complication detail: with polyneuropathy Diabetes mellitus type: type 2 (3) Hyperlipidemia: Status: Chronic (4) Hypertension: Status: Chronic Qualifiers: Hypertension type: essential hypertension Qualified Code(s): I10 - Essential (primary) hypertension (5) Hypoxia: Status: Acute (6) Benign prostatic hyperplasia: Status: Chronic Qualifiers: Lower urinary tract symptom presence: symptoms absent Qualified Code(s): N40.0 - Benign prostatic hyperplasia without lower urinary tract symptoms
[2023-04-14] MEDS: GLUCOPHAGE ONE (20:58)
--- NOTE | 2023-04-15 11:25 | PCM.PROG ---
Progress Note Progress Note for Day of Date of Exam: 04/15/23 Subjective Subjective: Patient seen at bedside, no acute events overnight. He was noted to have low glucose this morning, 54. It did come up to 96 after 2 snacks. He reports eating his meals and has been drinking Ensure and orange juice. His Levemir dose was held this morning. He is currently admitted as swing bed status for rehab. He is s/p right hip fracture repair after a fall. He did work with PT yesterday. Patient had a BM today. Labs/imaging reviewed Plan: Continue metformin, hold Levemir. Continue SSI and see how much insulin patient requires today. Continue with PT as tolerated. Continue current medications. Monitor labs prn. Continue lovenox for DVT prophylaxis. Continue pain control prn. Past Medical Family Social History Allergies: Allergies zolpidem Adverse Reaction (Verified 08/28/16 08:57) Vital Signs and I&O's Vital Signs: Vital Signs Temperature 99.3 F Pulse Rate [Right Brachial] 77 Respiratory Rate 18 Respiratory Rate 18 Blood Pressure [Right Arm] 134/59 O2 Sat by Pulse Oximetry 96 Intake and Output: Intake & Output 04/12/23 04/13/23 04/14/23 04/15/23 23:59 23:59 23:59 23:59 Intake Total 900 / 900 730 / 730 415 / 415 360 / 360 Output Total 2600 / 2600 1400 / 1400 1575 / 1575 Balance -1700 / -1700 -670 / -670 -1160 / -1160 360 / 360 Physical Exam Oriented: Normal Eyes: Normal Ear: Normal Nose: Normal Throat: Normal Cardiovascular: Normal Auscultation: Bowel Sounds: Normal Palpation: Normal Tenderness: Normal Skin: Normal Musculoskeletal: Hip and Back:Lumbar Psychiatric: Normal Mood Description: Calm Affect: Normal Speech Pattern: Clear Laboratory and Diagnostics 04/14/23 04:13 04/14/23 04:13 Labs: Laboratory WBC 14.5 X10^3/uL (3.6-10.0) H 04/14/23 04:13 RBC 3.87 X10^6/uL (4.7-6.0) L 04/14/23 04:13 Hgb 11.8 g/dL (13.5-18.0) L 04/14/23 04:13 Hct 35.7 % (42.0-54.0) L 04/14/23 04:13 MCV 92.4 fL (80.0-100.0) 04/14/23 04:13 MCH 30.6 pg (27.0-34.0) 04/14/23 04:13 MCHC 33.1 g/dL (33.0-35.0) 04/14/23 04:13 RDW 13.5 % (11.6-16.5) 04/14/23 04:13 Plt Count 475 X10^3/uL (150.0-450.0) H 04/14/23 04:13 Plt Count Comment Increased (ADEQUATE) 04/14/23 04:13 MPV 9.3 fL (7.4-11.0) 04/14/23 04:13 Neut % (Auto) 79.6 % (42.0-75.0) H 04/14/23 04:13 Lymph % (Auto) 5.8 % (21.0-51.0) L 04/14/23 04:13 [place] % (Auto) 12.9 % (0.0-13.0) 04/14/23 04:13 Eos % (Auto) 1.1 % (0.9-2.9) 04/14/23 04:13 Baso % (Auto) 0.6 % (0.2-1.0) 04/14/23 04:13 Neut # (Auto) 11.5 x10^3/uL (2.2-4.8) H 04/14/23 04:13 Lymph # (Auto) 0.8 X10^3/uL (1.3-2.9) L 04/14/23 04:13 [place] # (Auto) 1.9 x10^3/uL (0.3-0.8) H 04/14/23 04:13 Eos # (Auto) 0.2 x10^3/uL (0.0-0.2) 04/14/23 04:13 Baso # (Auto) 0.1 X10^3/uL (0.0-0.1) 04/14/23 04:13 Absolute Nucleated RBC 0.1 /100WBC 04/14/23 04:13 Total Counted 100 04/14/23 04:13 Neutrophils % (Manual) 77 % (39-76) H 04/14/23 04:13 Band Neutrophils % 3 % (0-10) 04/13/23 05:09 Lymphocytes % (Manual) 7 % (13-43) L 04/14/23 04:13 Monocytes % (Manual) 13 % (4-9) H 04/14/23 04:13 Eosinophils % (Manual) 3 % (0-6) 04/14/23 04:13 Metamyelocytes % 1 04/13/23 05:09 Myelocytes % 1 04/13/23 05:09 Plt Morphology Comment Normal (NORMAL) 04/14/23 04:13 RBC Morphology Normal (NORMAL) 04/14/23 04:13 Sodium 139 mmol/L (136-145) 04/14/23 04:13 Corrected Sodium TNP 04/14/23 04:13 Potassium 4.7 mmol/L (3.5-5.1) 04/14/23 04:13 Chloride 103 mmol/L (98-107) 04/14/23 04:13 Carbon Dioxide 28.0 mmol/L (21-32) 04/14/23 04:13 BUN 23 mg/dL (7-18) H 04/14/23 04:13 Creatinine 1.42 mg/dL (0.70-1.30) H 04/14/23 04:13 Est GFR (MDRD) Af Amer > 60 (>60) 04/14/23 04:13 Est GFR (MDRD) Non-Af 50 (>60) L 04/14/23 04:13 Glucose 97 mg/dL (65-99) 04/14/23 04:13 POC Glucose (mg/dL) 96 mg/dL (65-99) 04/15/23 07:10 Calcium 8.4 mg/dL (8.5-10.1) L 04/14/23 04:13 Corrected Calcium 10.1 mg/dL (8.5-10.1) 04/14/23 04:13 Magnesium 2.0 mg/dL (2.0-2.9) 04/11/23 05:23 Total Bilirubin 0.40 mg/dL (0.2-1.0) 04/14/23 04:13 AST 42 Units/L (15-37) H 04/14/23 04:13 ALT 64 Units/L (12-78) 04/14/23 04:13 Alkaline Phosphatase 88 Units/L (46-116) 04/14/23 04:13 Total Protein 6.5 g/dL (6.4-8.2) 04/14/23 04:13 Albumin 1.9 g/dL (3.4-5.0) L 04/14/23 04:13 Globulin 4.6 g/dL (2.5-4.5) H 04/14/23 04:13 Albumin/Globulin Ratio 0.4 Ratio (1.1-2.1) L 04/14/23 04:13 Plan (1) Hypoglycemia: Status: Acute (2) Hip fracture requiring operative repair: Status: Acute (3) Diabetes: Status: Chronic Qualifiers: Diabetes mellitus complication detail: with polyneuropathy Diabetes mellitus type: type 2 (4) Hyperlipidemia: Status: Chronic (5) Hypertension: Status: Chronic Qualifiers: Hypertension type: essential hypertension Qualified Code(s): I10 - Essential (primary) hypertension (6) Hypoxia: Status: Acute (7) Benign prostatic hyperplasia: Status: Chronic Qualifiers: Lower urinary tract symptom presence: symptoms absent Qualified Code(s): N40.0 - Benign prostatic hyperplasia without lower urinary tract symptoms
[2023-04-15] MEDS: GLUCOPHAGE ONE ×2 (16:03→20:48)
[2023-04-15] MEDS: RESTORIL CAP 15 MG PO SCH (20:13)
[2023-04-16 06:02] LABS: BASOPHILS % (AUTO) 0.3 % (0.2-1.0); EOSINOPHILS # (AUTO) 0.2 x10^3/uL (0.0-0.2); HEMATOCRIT 33.2 % (42.0-54.0); HEMOGLOBIN 11.1 g/dL (13.5-18.0); LYMPHOCYTES # (AUTO) 1.1 X10^3/uL (1.3-2.9); LYMPHOCYTES % (AUTO) 10.6 % (21.0-51.0); MEAN CORPUSCULAR HEMOGLOBIN 30.6 pg (27.0-34.0); MEAN CORPUSCULAR HGB CONC 33.5 g/dL (33.0-35.0); MEAN CORPUSCULAR VOLUME 91.5 fL (80.0-100.0); MONOCYTES # (AUTO) 1.7 x10^3/uL (0.3-0.8); MONOCYTES % (AUTO) 15.9 % (0.0-13.0); NEUTROPHILS # (AUTO) 7.6 x10^3/uL (2.2-4.8); NEUTROPHILS % (AUTO) 71.2 % (42.0-75.0); PLATELET COUNT 468 X10^3/uL (150.0-450.0); RED BLOOD COUNT 3.63 X10^6/uL (4.7-6.0); RED CELL DISTRIBUTION WIDTH 13.8 % (11.6-16.5); WHITE BLOOD COUNT 10.7 X10^3/uL (3.6-10.0)
[2023-04-16 06:11] LABS: ALBUMIN 2.1 g/dL (3.4-5.0); CALCIUM 8.4 mg/dL (8.5-10.1); CARBON DIOXIDE 27.4 mmol/L (21-32); COR CA(FOR HYPOALB) 9.9 mg/dL (8.5-10.1); CREATININE 1.47 mg/dL (0.70-1.30); TOTAL PROTEIN 6.7 g/dL (6.4-8.2)
[2023-04-16 06:29] LABS: BAND NEUTROPHILS % 2 % (0-10); PLATELET MORPHOLOGY COMMENT NORMAL (NORMAL)
[2023-04-16] MEDS ORDERED: GLUCOPHAGE ONE ×2 (08:29→20:05)
--- NOTE | 2023-04-16 08:50 | RAD ---
EXAM: CHEST, 1 VIEW HISTORY: pneumonia; COMPARISON: Prior study or studies were utilized for comparison during interpretation with the most relevant yayo ed 04/11/2023 TECHNIQUE: CHEST, 1 VIEW FINDINGS: Chest: Lines and tubes: Left-sided implanted port with catheter tip in satisfactory position Mediastinum: Cardiomegaly. Pulmonary vessels: Pulmonary vasculature is prominent. Lung guidry: Increasing left-sided airspace opacities Pleura: No effusion. No pneumothorax. Bones and soft tissues: No acute osseous or soft tissue abnormality. IMPRESSION: 1. Increasing left-sided airspace opacities THIS IS AN ELECTRONICALLY VERIFIED FINAL REPORT 04/16/2023 8:46 AM - Electronically signed by Augie Fowler MD
[2023-04-16] MEDS: NORCO 5/325 MG TAB PO PRN (10:30)
--- NOTE | 2023-04-16 16:55 | PCM.PROG ---
Progress Note Progress Note for Day of Date of Exam: 04/16/23 Subjective Subjective: Pt is an 88 year old male, who is swing bed status for rehab after a recent fall causing right hip fracture. He is s/p repair at [facility]. He had been recently admitted to [facility] on 03/31/2023, with diagnosis of COVID and hypoxia. Pt was discharged from [facility] on 04/03/2023 to return home. Once home, pt fell and landed on R hip causing a fracture. Pt reported to [facility] in [place] on 04/05/2023, and received a hemiarthroplasty on the same day. During his stay at [facility], he was noted to have acute hypoxic respiratory failure secondary to pneumonia and was treated with vancomycin and cefepime. He was discharged on po augmentin, which we have continued. He had a repeat chest xray this morning that showed increasing left sided airspace opacities. Morning labs on showed WBC 10.7, HGB 11.1, BUN 21/Creatinine 1.47. Morning vitals are 126/60-62-17-97.9-96% on 2L via NC. He is a type 2 Diabetic and is on sliding scale coverage. He is working with PT/OT and tolerating well. Past Medical Family Social History Allergies: Allergies zolpidem Adverse Reaction (Verified 08/28/16 08:57) Vital Signs and I&O's Vital Signs: Vital Signs Respiratory Rate 17 Intake and Output: Intake & Output 04/14/23 04/15/23 04/16/23 04/17/23 11:59 11:59 11:59 11:59 Intake Total 825 / 825 580 / 580 720 / 720 Output Total 2375 / 2375 200 / 200 Balance -1550 / -1550 580 / 580 520 / 520 Physical Exam Oriented: Normal Eyes: Normal Ear: Normal Nose: Normal Throat: Normal Cardiovascular: Normal : Normal Auscultation: Bowel Sounds: Normal Tenderness: Normal Skin: Normal Musculoskeletal: Hip and Back:Lumbar Psychiatric: Normal Mood Description: Calm Affect: Normal Speech Pattern: Clear and Appropriate Laboratory and Diagnostics 04/16/23 05:23 04/16/23 05:23 Labs: Laboratory WBC 10.7 X10^3/uL (3.6-10.0) H 04/16/23 05:23 RBC 3.63 X10^6/uL (4.7-6.0) L 04/16/23 05:23 Hgb 11.1 g/dL (13.5-18.0) L 04/16/23 05:23 Hct 33.2 % (42.0-54.0) L 04/16/23 05:23 MCV 91.5 fL (80.0-100.0) 04/16/23 05:23 MCH 30.6 pg (27.0-34.0) 04/16/23 05:23 MCHC 33.5 g/dL (33.0-35.0) 04/16/23 05:23 RDW 13.8 % (11.6-16.5) 04/16/23 05:23 Plt Count 468 X10^3/uL (150.0-450.0) H 04/16/23 05:23 Plt Count Comment Increased (ADEQUATE) 04/16/23 05:23 MPV 9.0 fL (7.4-11.0) 04/16/23 05:23 Neut % (Auto) 71.2 % (42.0-75.0) 04/16/23 05:23 Lymph % (Auto) 10.6 % (21.0-51.0) L 04/16/23 05:23 [place] % (Auto) 15.9 % (0.0-13.0) H 04/16/23 05:23 Eos % (Auto) 2.0 % (0.9-2.9) 04/16/23 05:23 Baso % (Auto) 0.3 % (0.2-1.0) 04/16/23 05:23 Neut # (Auto) 7.6 x10^3/uL (2.2-4.8) H 04/16/23 05:23 Lymph # (Auto) 1.1 X10^3/uL (1.3-2.9) L 04/16/23 05:23 [place] # (Auto) 1.7 x10^3/uL (0.3-0.8) H 04/16/23 05:23 Eos # (Auto) 0.2 x10^3/uL (0.0-0.2) 04/16/23 05:23 Baso # (Auto) 0.0 X10^3/uL (0.0-0.1) 04/16/23 05:23 Absolute Nucleated RBC 0.1 /100WBC 04/16/23 05:23 Total Counted 100 04/16/23 05:23 Neutrophils % (Manual) 72 % (39-76) 04/16/23 05:23 Band Neutrophils % 2 % (0-10) 04/16/23 05:23 Lymphocytes % (Manual) 11 % (13-43) L 04/16/23 05:23 Monocytes % (Manual) 13 % (4-9) H 04/16/23 05:23 Eosinophils % (Manual) 2 % (0-6) 04/16/23 05:23 Metamyelocytes % 1 04/13/23 05:09 Myelocytes % 1 04/13/23 05:09 Plt Morphology Comment Normal (NORMAL) 04/16/23 05:23 RBC Morphology Normal (NORMAL) 04/16/23 05:23 Sodium 137 mmol/L (136-145) 04/16/23 05:23 Corrected Sodium 139 mmol/L (136-145) 04/16/23 05:23 Potassium 5.0 mmol/L (3.5-5.1) 04/16/23 05:23 Chloride 101 mmol/L (98-107) 04/16/23 05:23 Carbon Dioxide 27.4 mmol/L (21-32) 04/16/23 05:23 BUN 21 mg/dL (7-18) H 04/16/23 05:23 Creatinine 1.47 mg/dL (0.70-1.30) H 04/16/23 05:23 Est GFR (MDRD) Af Amer 58 (>60) L 04/16/23 05:23 Est GFR (MDRD) Non-Af 48 (>60) L 04/16/23 05:23 Glucose 182 mg/dL (65-99) H 04/16/23 05:23 POC Glucose (mg/dL) 248 mg/dL (65-99) H 04/16/23 11:17 Calcium 8.4 mg/dL (8.5-10.1) L 04/16/23 05:23 Corrected Calcium 9.9 mg/dL (8.5-10.1) 04/16/23 05:23 Magnesium 2.0 mg/dL (2.0-2.9) 04/11/23 05:23 Total Bilirubin 0.50 mg/dL (0.2-1.0) 04/16/23 05:23 AST 28 Units/L (15-37) 04/16/23 05:23 ALT 46 Units/L (12-78) 04/16/23 05:23 Alkaline Phosphatase 88 Units/L (46-116) 04/16/23 05:23 Total Protein 6.7 g/dL (6.4-8.2) 04/16/23 05:23 Albumin 2.1 g/dL (3.4-5.0) L 04/16/23 05:23 Globulin 4.6 g/dL (2.5-4.5) H 04/16/23 05:23 Albumin/Globulin Ratio 0.5 Ratio (1.1-2.1) L 04/16/23 05:23 Plan (1) Hip fracture requiring operative repair: Status: Acute Narrative Support Text: CONTINUE PT/OT, ROUTINE LABS PER PROTOCOL, PO ABX, SUPPLEMENTAL O2 PRN. Plan for repeat chest xray on Sunday. (2) Diabetes: Status: Chronic Qualifiers: Diabetes mellitus type: type 2 Diabetes mellitus complication detail: with polyneuropathy (3) Hyperlipidemia: Status: Chronic (4) Hypertension: Status: Chronic Qualifiers: Hypertension type: essential hypertension Qualified Code(s): I10 - Essential (primary) hypertension (5) Hypoxia: Status: Acute (6) Benign prostatic hyperplasia: Status: Chronic Qualifiers: Lower urinary tract symptom presence: symptoms absent Qualified Code(s): N40.0 - Benign prostatic hyperplasia without lower urinary tract symptoms
[2023-04-17] MEDS ORDERED: GLUCOPHAGE ONE ×2 (08:58→20:56)
[2023-04-17] MEDS: DIFLUCAN PO SCH (16:40)
[2023-04-17] MEDS ORDERED: PYRIDIUM PO ONE (16:41)
[2023-04-17] MEDS: PYRIDIUM PO ONE (16:44)
[2023-04-18 06:04] LABS: BASOPHILS % (AUTO) 0.6 % (0.2-1.0); EOSINOPHILS # (AUTO) 0.2 x10^3/uL (0.0-0.2); EOSINOPHILS % (AUTO) 2.1 % (0.9-2.9); HEMATOCRIT 35.8 % (42.0-54.0); HEMOGLOBIN 11.8 g/dL (13.5-18.0); LYMPHOCYTES # (AUTO) 0.7 X10^3/uL (1.3-2.9); LYMPHOCYTES % (AUTO) 8.9 % (21.0-51.0); MEAN CORPUSCULAR HEMOGLOBIN 30.6 pg (27.0-34.0); MEAN CORPUSCULAR HGB CONC 33.1 g/dL (33.0-35.0); MEAN CORPUSCULAR VOLUME 92.4 fL (80.0-100.0); MEAN PLATELET VOLUME 8.9 fL (7.4-11.0); MONOCYTES # (AUTO) 1.3 x10^3/uL (0.3-0.8); MONOCYTES % (AUTO) 15.8 % (0.0-13.0); NEUTROPHILS # (AUTO) 5.9 x10^3/uL (2.2-4.8); NEUTROPHILS % (AUTO) 72.6 % (42.0-75.0); PLATELET COUNT 495 X10^3/uL (150.0-450.0); RED BLOOD COUNT 3.87 X10^6/uL (4.7-6.0); RED CELL DISTRIBUTION WIDTH 13.5 % (11.6-16.5); WHITE BLOOD COUNT 8.1 X10^3/uL (3.6-10.0)
[2023-04-18 06:18] LABS: ALBUMIN 2.3 g/dL (3.4-5.0); CALCIUM 8.7 mg/dL (8.5-10.1); CARBON DIOXIDE 26.4 mmol/L (21-32); COR CA(FOR HYPOALB) 10.1 mg/dL (8.5-10.1); CREATININE 1.59 mg/dL (0.70-1.30); POTASSIUM 4.9 mmol/L (3.5-5.1); TOTAL PROTEIN 7.1 g/dL (6.4-8.2)
[2023-04-18 06:33] LABS: PLATELET MORPHOLOGY COMMENT NORMAL (NORMAL)
[2023-04-18] MEDS ORDERED: GLUCOPHAGE ONE ×2 (11:37→20:27)
[2023-04-18 20:22] LABS: APPEARANCE,URINE CLEAR (CLEAR); COLOR,URINE DARK YELLOW (YELLOW)
[2023-04-18 20:23] LABS: BACTERIA,URINE 1+ /HPF (NEGATIVE); RBC,URINE 0-2 /HPF (0-3); RENAL EPITHELIAL CELLS,URINE FEW /HPF (NEGATIVE); SQUAMOUS EPITHELIAL CELL,UR FEW /HPF (NEGATIVE)
[2023-04-19] MEDS ORDERED: GLUCOPHAGE ONE ×2 (07:45→21:12)
--- NOTE | 2023-04-19 10:56 | RAD ---
EXAM:CHEST x-ray, 1 VIEWHISTORY:COUGH, COLD, CONGESTION -COMPARISON:X-ray 04/16/2023 and 03/12/2018, CT 04/02/2023FINDINGS:Port catheter terminates in the region of the mid SVC. Mild prominence of the superior mediastinum is a chronic appearance dating back to 2019. This is accentuated due to the AP portable technique and is due to vascular tortuosity and fat. Heart is likely normal in size. Mild interstitial densities are seen in the lungs could be due to viral infection. No pleural effusion or pneumothorax is seen.IMPRESSION:Mild increased interstitial densities are seen in the lungs that could be due to viral infection. These findings are similar to prior CT. Consider possible influenza or COVID-19.THIS IS AN ELECTRONICALLY VERIFIED FINAL REPORT04/19/2023 10:52 AM - Electronically signed by Roverto Carpenter MD
[2023-04-20 03:38] VITALS: PULSE 74
[2023-04-20 06:16] LABS: BASOPHILS # (AUTO) 0.1 X10^3/uL (0.0-0.1); BASOPHILS % (AUTO) 0.9 % (0.2-1.0); EOSINOPHILS # (AUTO) 0.2 x10^3/uL (0.0-0.2); EOSINOPHILS % (AUTO) 3.3 % (0.9-2.9); HEMATOCRIT 33.7 % (42.0-54.0); HEMOGLOBIN 11.3 g/dL (13.5-18.0); LYMPHOCYTES % (AUTO) 14.3 % (21.0-51.0); MEAN CORPUSCULAR HEMOGLOBIN 30.9 pg (27.0-34.0); MEAN CORPUSCULAR HGB CONC 33.6 g/dL (33.0-35.0); MEAN CORPUSCULAR VOLUME 91.8 fL (80.0-100.0); MEAN PLATELET VOLUME 8.7 fL (7.4-11.0); MONOCYTES # (AUTO) 1.1 x10^3/uL (0.3-0.8); NEUTROPHILS # (AUTO) 4.6 x10^3/uL (2.2-4.8); NEUTROPHILS % (AUTO) 66.5 % (42.0-75.0); PLATELET COUNT 518 X10^3/uL (150.0-450.0); RED BLOOD COUNT 3.67 X10^6/uL (4.7-6.0); RED CELL DISTRIBUTION WIDTH 13.5 % (11.6-16.5)
[2023-04-20 06:25] LABS: ALBUMIN 2.3 g/dL (3.4-5.0); CALCIUM 8.5 mg/dL (8.5-10.1); COR CA(FOR HYPOALB) 9.9 mg/dL (8.5-10.1); CREATININE 1.58 mg/dL (0.70-1.30); POTASSIUM 5.1 mmol/L (3.5-5.1); TOTAL PROTEIN 6.8 g/dL (6.4-8.2)
[2023-04-20 06:44] LABS: BAND NEUTROPHILS % 2 % (0-10)
[2023-04-20 06:45] LABS: PLATELET MORPHOLOGY COMMENT NORMAL (NORMAL)
[2023-04-20] MEDS: GLUCOPHAGE ONE (09:08)
[2023-04-20 09:44] VITALS: BP 147/65; RESP 20; TEMP 97.8; O2SAT 95
== END 2023-04-20 09:25 | disposition home health service (06) | DRG 536 ==
LOC: MED/SURG 16:46
PROVIDERS: ADMIT Internal Medicine; ATTEND Internal Medicine
DX: E11.65 Type 2 diabetes mellitus with hyperglycemia; W18.39XA Other fall on same level, initial encounter; I10 Essential (primary) hypertension; R09.02 Hypoxemia; Z47.89 Encounter for other orthopedic aftercare; E78.5 Hyperlipidemia, unspecified; S72.009A Fracture of unspecified part of neck of unspecified femur, initial encounter for closed fracture; N40.0 Benign prostatic hyperplasia without lower urinary tract symptoms

== ENCOUNTER 2024-05-19 14:24 | Observation (INO) ==
[2024-05-19 15:38] LABS: BASOPHILS # (AUTO) 0.1 X10^3/uL (0.0-0.1); EOSINOPHILS # (AUTO) 0.1 x10^3/uL (0.0-0.2); EOSINOPHILS % (AUTO) 0.5 % (0.9-2.9); HEMATOCRIT 33.6 % (42.0-54.0); HEMOGLOBIN 11.1 g/dL (13.5-18.0); LYMPHOCYTES # (AUTO) 1.8 X10^3/uL (1.3-2.9); LYMPHOCYTES % (AUTO) 13.9 % (21.0-51.0); MEAN CORPUSCULAR HEMOGLOBIN 28.7 pg (27.0-34.0); MEAN CORPUSCULAR HGB CONC 33.1 g/dL (33.0-35.0); MEAN CORPUSCULAR VOLUME 86.6 fL (80.0-100.0); MEAN PLATELET VOLUME 8.6 fL (7.4-11.0); MONOCYTES # (AUTO) 1.3 x10^3/uL (0.3-0.8); MONOCYTES % (AUTO) 10.2 % (0.0-13.0); NEUTROPHILS # (AUTO) 9.4 x10^3/uL (2.2-4.8); NEUTROPHILS % (AUTO) 74.4 % (42.0-75.0); PLATELET COUNT 520 X10^3/uL (150.0-450.0); RED BLOOD COUNT 3.87 X10^6/uL (4.7-6.0); RED CELL DISTRIBUTION WIDTH 14.6 % (11.6-16.5); WHITE BLOOD COUNT 12.6 X10^3/uL (3.6-10.0)
[2024-05-19] MEDS: NS 1,000 ML IV 1,000 ML IV ONE (15:39)
[2024-05-19] MEDS: ROCEPHIN VIAL 1 GRAM 1 G in NS 100 ML IV 100 ML IV SCH (15:39)
[2024-05-19] MEDS: NS 1,000 ML IV 1,000 ML ONE (15:47)
[2024-05-19 16:00] VITALS: BMI 24.0
[2024-05-19 16:01] LABS: ALBUMIN 2.7 g/dL (3.4-5.0); CARBON DIOXIDE 21.4 mmol/L (21-32); CREATININE 2.41 mg/dL (0.70-1.30); POTASSIUM 3.8 mmol/L (3.5-5.1); TOTAL PROTEIN 8.3 g/dL (6.4-8.2)
--- NOTE | 2024-05-19 17:56 | DR.H&P ---
H&P History & Physical for Day of: H&P Date: 05/19/24 Chief Complaint Chief Complaint: WEAKNESS, SOB, CONFUSION, UTI History of Present Illness History of Present Illness: PT IS 89 WM, DIRECT ADMIT FROM DR [place]ACH OFFICE WITH DIFFUSE WEAKNESS, CONFUSION WITH UTI SYMPTOMS. PT COMPLETED COURSE OF CIPRO ~ TWO WEEKS AGO AND HAS BEEN CONTINUED TRANSIENT CONFUSION, STRONG SMELLING URINE AND POOR APPETITE. PT CO SOB THIS MORNING. PT HAS PH OF RA AND DIABETES. PT HAS INCREASED PAIN RELATED TO ARTHRITIS. PT ADMITTED FOR EVALUATION AND TREATMENT OF ACUTE ILLNESS. Past Medical History Past Medical History: Arthritis, Coronary Artery Disease, CVA, Diabetes, Dyslipidemia, Hypertension and Kidney Stones Additional Medical History: BPH, DIABETIC NEUROPATHY Past Surgical History Surgical History: Ortho Surgery Family History Family Medical History: Hypertension Social History Does patient currently use any type of tobacco product: No Type of Tobacco Use: None Alcohol Use: None Drug Use: None Medications Home Medications: Home Medications Medication Instructions Recorded Confirmed Type Tamsulosin HCl 0.4 mg PO HS 12/02/14 05/19/24 History insulin detemir U-100 100 unit/mL 30 units SC BID 02/24/16 05/19/24 History subcutaneous solution (Levemir U-100 Insulin) metoprolol tartrate 25 mg tablet 12.5 mg PO BID 05/19/24 05/19/24 History pantoprazole 40 mg tablet,delayed 40 mg PO QDAY 05/19/24 05/19/24 History release quetiapine 25 mg tablet 25 mg PO HS 05/19/24 05/19/24 History Allergies Allergies Allergy/AdvReac Type Severity Reaction Status Date / Time zolpidem AdvReac Verified 05/19/24 16:04 Labs 05/19/24 15:18 05/19/24 15:18 Labs: Laboratory WBC 12.6 X10^3/uL (3.6-10.0) H 05/19/24 15:18 RBC 3.87 X10^6/uL (4.7-6.0) L 05/19/24 15:18 Hgb 11.1 g/dL (13.5-18.0) L 05/19/24 15:18 Hct 33.6 % (42.0-54.0) L 05/19/24 15:18 MCV 86.6 fL (80.0-100.0) 05/19/24 15:18 MCH 28.7 pg (27.0-34.0) 05/19/24 15:18 MCHC 33.1 g/dL (33.0-35.0) 05/19/24 15:18 RDW 14.6 % (11.6-16.5) 05/19/24 15:18 Plt Count 520 X10^3/uL (150.0-450.0) H 05/19/24 15:18 MPV 8.6 fL (7.4-11.0) 05/19/24 15:18 Neut % (Auto) 74.4 % (42.0-75.0) 05/19/24 15:18 Lymph % (Auto) 13.9 % (21.0-51.0) L 05/19/24 15:18 [place] % (Auto) 10.2 % (0.0-13.0) 05/19/24 15:18 Eos % (Auto) 0.5 % (0.9-2.9) L 05/19/24 15:18 Baso % (Auto) 1.0 % (0.2-1.0) 05/19/24 15:18 Neut # (Auto) 9.4 x10^3/uL (2.2-4.8) H 05/19/24 15:18 Lymph # (Auto) 1.8 X10^3/uL (1.3-2.9) 05/19/24 15:18 [place] # (Auto) 1.3 x10^3/uL (0.3-0.8) H 05/19/24 15:18 Eos # (Auto) 0.1 x10^3/uL (0.0-0.2) 05/19/24 15:18 Baso # (Auto) 0.1 X10^3/uL (0.0-0.1) 05/19/24 15:18 Absolute Nucleated RBC 0.0 /100WBC 05/19/24 15:18 ESR 113 MM/HOUR (0-15) H 05/19/24 15:18 Sodium 135 mmol/L (136-145) L 05/19/24 15:18 Corrected Sodium 137 mmol/L (136-145) 05/19/24 15:18 Potassium 3.8 mmol/L (3.5-5.1) 05/19/24 15:18 Chloride 100 mmol/L (98-107) 05/19/24 15:18 Carbon Dioxide 21.4 mmol/L (21-32) 05/19/24 15:18 BUN 27 mg/dL (7-18) H 05/19/24 15:18 Creatinine 2.41 mg/dL (0.70-1.30) H 05/19/24 15:18 Est GFR (MDRD) Af Amer 33 (>60) L 05/19/24 15:18 Est GFR (MDRD) Non-Af 27 (>60) L 05/19/24 15:18 Glucose 168 mg/dL (65-99) H 05/19/24 15:18 POC Glucose (mg/dL) 151 mg/dL (65-99) H 05/19/24 17:07 Calcium 9.0 mg/dL (8.5-10.1) 05/19/24 15:18 Corrected Calcium 10.0 mg/dL (8.5-10.1) 05/19/24 15:18 Total Bilirubin 0.40 mg/dL (0.2-1.0) 05/19/24 15:18 AST 18 Units/L (15-37) 05/19/24 15:18 ALT 22 Units/L (12-78) 05/19/24 15:18 Alkaline Phosphatase 97 Units/L (46-116) 05/19/24 15:18 Creatine Kinase 17 Units/L (39-308) L 05/19/24 15:18 Troponin I High Sens 6.8 ng/L (4.0-60.0) 05/19/24 15:18 C-Reactive Protein 85.90 mg/L (0-3.0) H 05/19/24 15:18 Total Protein 8.3 g/dL (6.4-8.2) H 05/19/24 15:18 Albumin 2.7 g/dL (3.4-5.0) L 05/19/24 15:18 Globulin 5.6 g/dL (2.5-4.5) H 05/19/24 15:18 Albumin/Globulin Ratio 0.5 Ratio (1.1-2.1) L 05/19/24 15:18 Review of Systems Constitutional: Weakness Eyes: No Symptoms Reported ENT: No Symptoms Reported Respiratory: Shortness of Breath Cardiovascular: No Symptoms Reported Gastrointestinal: Diarrhea and Other (APPETITE LOSS) Genitourinary: Dysuria, Hematuria and Other (FOUL SMELLING URINE ) Musculoskeletal: Arm Pain, Back Pain, Hand Pain and Leg Pain Skin: No Symptoms Reported Neurological: Weakness and Confusion Physical Exam Vital Signs: Vital Signs Temperature 97.6 F Pulse Rate [Left Radial] 75 Respiratory Rate 17 Blood Pressure [Right Arm] 167/77 O2 Sat by Pulse Oximetry 100 Oriented: Time (HAS SOME CONFUSION ABOUT EVENTS PRIOR TO ADMISSION), Person and Place Eyes: Normal Ear: Normal Nose: Normal Throat: Normal Respiratory: RLL Diminished and LLL Diminished Cardiovascular: Normal Auscultation: Bowel Sounds: Normal Palpation: Normal Tenderness: Normal Skin: Normal Musculoskeletal: Hand, Back:Lumbar, Motor Deficit and Sensory Deficit Psychiatric: Anxiety Mood Description: Anxious Affect: Anxious Speech Pattern: Clear and Slurred (CHRONIC) Assessment/Plan (1) UTI (urinary tract infection): Status: Acute Plan: ADMIT, IV HYDRATION BC AND UC, PAIN CONTROL IV ROCEPHIN, ROUTINE CXR VERIFY HOME MEDICATIONS BP CONTROL, PRN SUPPLEMTNAL O2 (2) Dehydration: Status: Acute (3) BPH (benign prostatic hypertrophy): Status: Chronic (4) Hypertension: Qualifiers: Hypertension type: essential hypertension Qualified Code(s): I10 - Essential (primary) hypertension Status: Chronic (5) Diabetes: Qualifiers: Diabetes mellitus type: type 2 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
--- NOTE | 2024-05-19 19:48 | EKG ---
Test Reason : RO Afib Blood Pressure : */* mmHG Vent. Rate : 68 BPM Atrial Rate : 68 BPM P-R Int : 262 ms QRS Dur : 92 ms QT Int : 420 ms P-R-T Axes : 56 -20 19 degrees QTc Int : 446 ms Sinus rhythm with 1st degree AV block with occasional premature ventricular complexes Otherwise normal ECG When compared with ECG of 31-MAR-2023 09:19, premature ventricular complexes are now present aberrant conduction is no longer present Confirmed by Douglas Cardona MD ([id number]) on 05/20/2024 7:37:29 AM Referred By: Confirmed By: Douglas Cardona MD
[2024-05-19] MEDS: FLOMAX PO SCH (20:39)
[2024-05-19] MEDS: COLACE CAP 100 MG PO SCH (20:39)
[2024-05-19] MEDS: SEROquel TAB 25 mg PO SCH (20:40)
[2024-05-19] MEDS: LOPRESSOR TAB 25 MG PO SCH (20:40)
[2024-05-19] MEDS: SNACK - Diabetic Appropriate PO SCH (20:45)
[2024-05-19] MEDS: LEVEMIR SC SCH (21:19)
[2024-05-20] MEDS: MORPHINE SULFATE INJ 2 MG INJ IVP PRN (04:00)
[2024-05-20 06:14] LABS: BASOPHILS # (AUTO) 0.1 X10^3/uL (0.0-0.1); BASOPHILS % (AUTO) 0.5 % (0.2-1.0); EOSINOPHILS # (AUTO) 0.1 x10^3/uL (0.0-0.2); EOSINOPHILS % (AUTO) 0.9 % (0.9-2.9); HEMATOCRIT 30.5 % (42.0-54.0); HEMOGLOBIN 10.1 g/dL (13.5-18.0); LYMPHOCYTES # (AUTO) 0.9 X10^3/uL (1.3-2.9); LYMPHOCYTES % (AUTO) 6.4 % (21.0-51.0); MEAN CORPUSCULAR HEMOGLOBIN 28.7 pg (27.0-34.0); MEAN CORPUSCULAR VOLUME 86.8 fL (80.0-100.0); MEAN PLATELET VOLUME 8.6 fL (7.4-11.0); MONOCYTES # (AUTO) 1.7 x10^3/uL (0.3-0.8); MONOCYTES % (AUTO) 12.9 % (0.0-13.0); NEUTROPHILS # (AUTO) 10.7 x10^3/uL (2.2-4.8); NEUTROPHILS % (AUTO) 79.3 % (42.0-75.0); PLATELET COUNT 493 X10^3/uL (150.0-450.0); RED BLOOD COUNT 3.52 X10^6/uL (4.7-6.0); RED CELL DISTRIBUTION WIDTH 14.8 % (11.6-16.5); WHITE BLOOD COUNT 13.5 X10^3/uL (3.6-10.0)
[2024-05-20 06:42] LABS: ALANINE AMINOTRANSFERASE 19 Units/L (12-78); ALBUMIN 2.3 g/dL (3.4-5.0); ALKALINE PHOSPHATASE 85 Units/L (46-116); ASPARTATE AMINO TRANSFERASE 16 Units/L (15-37); BLOOD UREA NITROGEN 26 mg/dL (7-18); CALCIUM 8.7 mg/dL (8.5-10.1); CARBON DIOXIDE 22.5 mmol/L (21-32); CHLORIDE 105 mmol/L (98-107); COR CA(FOR HYPOALB) 10.1 mg/dL (8.5-10.1); CREATININE 2.07 mg/dL (0.70-1.30); GLUCOSE 61 mg/dL (65-99); POTASSIUM 3.5 mmol/L (3.5-5.1); SODIUM 140 mmol/L (136-145); TOTAL PROTEIN 7.4 g/dL (6.4-8.2); eGFR NON BLACK RACES 32 (>60)
[2024-05-20] MEDS ORDERED: CONSULT PHARMACY - POTASSIUM & MAGNESIUM XX SCH ×2 (07:00→09:00)
[2024-05-20] MEDS: PROTONIX TAB 40 MG PO SCH (08:31)
[2024-05-20 09:14] LABS: BILIRUBIN,URINE NEGATIVE (NEGATIVE); BLOOD/HEMOGLOBIN,URINE 3+ (NEGATIVE); GLUCOSE, URINE 1+ (NEGATIVE); KETONES,URINE NEGATIVE (NEGATIVE); LEUKOCYTE ESTERASE ,URINE 3+ (NEGATIVE); NITRITES,URINE NEGATIVE (NEGATIVE); PROTEIN,URINE 3+ (NEGATIVE); UROBILINOGEN,URINE NORMAL (NORMAL)
[2024-05-20] MEDS ORDERED: READI-CAT 2 ONE (09:26)
[2024-05-20 09:34] LABS: APPEARANCE,URINE CLOUDY (CLEAR); COLOR,URINE YELLOW (YELLOW)
[2024-05-20 09:35] LABS: BACTERIA,URINE 1+ /HPF (NEGATIVE); SQUAMOUS EPITHELIAL CELL,UR RARE /HPF (NEGATIVE)
--- NOTE | 2024-05-20 11:43 | CT ---
EXAMINATION:ABDOMEN/PELVIS W/O CONHISTORY:AMS, UTI, DEHYDRATION; .COMPARISON:Report CT abdomen and pelvis 03/27/2019TECHNIQUE:Unenhanced axial images were obtained through the abdomen and pelvis using renal stone protocol. Reformatted images were obtained as well. Oral contrast utilized.The above CT scan was done with automated exposure control and the mA and kV was adjusted to obtain quality images according to patient size.FINDINGS:Lung bases: Trace pleural fluid bilaterally. Atelectasis. Subcentimeter pulmonary nodules in the lung bases as described previously. No acute infiltratesLiver: No acute findings or focal lesions.GB/Biliary: No gallstones or dilated ductsSpleen: Normal size and density. Granulomatous changes.Pancreas: No acute findings. No pseudocyst or dilated ductAdrenal Glands: No massKidneys: No obstructing stone. There is a 9 mm nonobstructing stone in the right renal pelvis. There is 6 mm nonobstructing stone in the lower pole of the right kidney. There is hydroureteronephrosis to the level of the bladder which is markedly distended. There is calyceal blunting. No solid appearing lesions.Abdominal aorta: Tapers normally. Atherosclerotic calcificationRetroperitoneum: No pathologically enlarged lymph nodesBowel: No thickened or dilated loops of bowel, free fluid, free air, pneumatosis or abscess. No CT evidence for appendicitis, diverticulitis or obstruction. Moderate stoolBladder/: Streak artifact from right hip replacement. Distended bladder extending to the level of the umbilicus. Enlarged prostate. Correlate with PSA.Osseous: Multilevel degenerative changes in the spine. Right hip replacement. No acute findings or bony lesions.IMPRESSION:Nonobstructing stones in both kidneys. No CT evidence for obstructing stone.Markedly distended bladder with dilated renal pelvis and ureters bilaterally. There is calyceal blunting.Enlarged prostate correlate with PSANo CT evidence for obstruction, diverticulitis or appendicitis.THIS IS AN ELECTRONICALLY VERIFIED FINAL REPORT05/20/2024 11:33 AM - Electronically signed by Roverto Urbina MD
[2024-05-20] MEDS: KLOR-CON 10 MEQ TAB PO NR (11:44)
[2024-05-20] MEDS: NovoLIN R (or HumuLIN R) SUBCUT PRN (13:10)
[2024-05-20] MEDS: TYLENOL 325 MG TAB PO PRN (16:03)
[2024-05-20] MEDS: TYLENOL 325 MG TAB PO ONE (17:28)
[2024-05-20] MEDS ORDERED: NORVASC TAB 2.5 MG ONE (17:56)
[2024-05-20] MEDS: NORVASC TAB 2.5 MG PO SCH (18:19)
[2024-05-20] MEDS: SOLU-Medrol 40 MG VIAL IVP ONE (20:27)
[2024-05-20] MEDS: SNACK - Diabetic Appropriate PO SCH (20:31)
[2024-05-21 05:11] LABS: BASOPHILS # (AUTO) 0.1 X10^3/uL (0.0-0.1); BASOPHILS % (AUTO) 0.5 % (0.2-1.0); EOSINOPHILS % (AUTO) 0.2 % (0.9-2.9); HEMATOCRIT 33.3 % (42.0-54.0); HEMOGLOBIN 11.1 g/dL (13.5-18.0); LYMPHOCYTES # (AUTO) 0.5 X10^3/uL (1.3-2.9); LYMPHOCYTES % (AUTO) 4.2 % (21.0-51.0); MEAN CORPUSCULAR HEMOGLOBIN 29.1 pg (27.0-34.0); MEAN CORPUSCULAR HGB CONC 33.3 g/dL (33.0-35.0); MEAN CORPUSCULAR VOLUME 87.5 fL (80.0-100.0); MEAN PLATELET VOLUME 9.1 fL (7.4-11.0); MONOCYTES # (AUTO) 0.1 x10^3/uL (0.3-0.8); MONOCYTES % (AUTO) 0.6 % (0.0-13.0); NEUTROPHILS # (AUTO) 11.5 x10^3/uL (2.2-4.8); NEUTROPHILS % (AUTO) 94.5 % (42.0-75.0); PLATELET COUNT 473 X10^3/uL (150.0-450.0); RED CELL DISTRIBUTION WIDTH 15.2 % (11.6-16.5); WHITE BLOOD COUNT 12.1 X10^3/uL (3.6-10.0)
[2024-05-21 05:21] LABS: ALBUMIN 2.4 g/dL (3.4-5.0); CARBON DIOXIDE 24.7 mmol/L (21-32); COR CA(FOR HYPOALB) 10.3 mg/dL (8.5-10.1); CREATININE 2.25 mg/dL (0.70-1.30); POTASSIUM 4.6 mmol/L (3.5-5.1); TOTAL PROTEIN 8.1 g/dL (6.4-8.2)
[2024-05-21 06:00] LABS: PLATELET MORPHOLOGY COMMENT NORMAL (NORMAL)
[2024-05-21] MEDS: LASIX IVP ONE (08:58)
[2024-05-21] MEDS: LOVENOX INJ 30 MG SYR SC SCH (09:00)
[2024-05-21] MEDS: NORVASC TAB 2.5 MG ONE (10:06)
[2024-05-21] MEDS: SENOKOT PO SCH (20:49)
[2024-05-22 06:24] LABS: BASOPHILS # (AUTO) 0.2 X10^3/uL (0.0-0.1); BASOPHILS % (AUTO) 1.3 % (0.2-1.0); EOSINOPHILS # (AUTO) 0.2 x10^3/uL (0.0-0.2); EOSINOPHILS % (AUTO) 1.4 % (0.9-2.9); HEMATOCRIT 30.7 % (42.0-54.0); HEMOGLOBIN 10.3 g/dL (13.5-18.0); LYMPHOCYTES # (AUTO) 2.3 X10^3/uL (1.3-2.9); LYMPHOCYTES % (AUTO) 17.8 % (21.0-51.0); MEAN CORPUSCULAR HGB CONC 33.5 g/dL (33.0-35.0); MEAN CORPUSCULAR VOLUME 86.7 fL (80.0-100.0); MEAN PLATELET VOLUME 8.5 fL (7.4-11.0); MONOCYTES # (AUTO) 1.1 x10^3/uL (0.3-0.8); MONOCYTES % (AUTO) 8.4 % (0.0-13.0); NEUTROPHILS # (AUTO) 9.3 x10^3/uL (2.2-4.8); NEUTROPHILS % (AUTO) 71.1 % (42.0-75.0); PLATELET COUNT 458 X10^3/uL (150.0-450.0); RED BLOOD COUNT 3.54 X10^6/uL (4.7-6.0); RED CELL DISTRIBUTION WIDTH 14.6 % (11.6-16.5); WHITE BLOOD COUNT 13.1 X10^3/uL (3.6-10.0)
[2024-05-22 06:33] LABS: ALANINE AMINOTRANSFERASE 12 Units/L (12-78); ALBUMIN 2.3 g/dL (3.4-5.0); ALKALINE PHOSPHATASE 81 Units/L (46-116); ASPARTATE AMINO TRANSFERASE 12 Units/L (15-37); BLOOD UREA NITROGEN 33 mg/dL (7-18); CALCIUM 8.6 mg/dL (8.5-10.1); CARBON DIOXIDE 24.3 mmol/L (21-32); CHLORIDE 106 mmol/L (98-107); CREATININE 2.38 mg/dL (0.70-1.30); GLUCOSE 82 mg/dL (65-99); POTASSIUM 3.8 mmol/L (3.5-5.1); SODIUM 143 mmol/L (136-145); TOTAL PROTEIN 7.3 g/dL (6.4-8.2); eGFR NON BLACK RACES 27 (>60)
--- NOTE | 2024-05-22 07:57 | RAD ---
EXAM:Portable chestHISTORY:CoughCOMPARISON:04/19/2023 .br.br.br.br the expected position of the superior vena cava. Heart size is normal. Aorta is calcified. Angely are normal. Lung guidry are free of acute infiltrates. No pleural effusions are identified. No pneumothorax identified. Bony thorax is unremarkable.IMPRESSION:No acute infiltratesTHIS IS AN ELECTRONICALLY VERIFIED FINAL REPORT05/22/2024 7:54 AM - Electronically signed by Ivan Gorman MD
[2024-05-22] MEDS: OMNICEF CAP 300 MG PO SCH (09:02)
[2024-05-22] MEDS: NORVASC TAB 2.5 MG ONE (09:05)
[2024-05-22 10:00] VITALS: BP 170/80; PULSE 73; RESP 19; TEMP 97.8; O2SAT 96
== END 2024-05-22 09:30 | disposition home health service (06) ==
LOC: MED/SURG
PROVIDERS: ADMIT Internal Medicine; ATTEND Internal Medicine
DX: R10.84 Generalized abdominal pain; Z16.11 Resistance to penicillins; R41.82 Altered mental status, unspecified; N17.8 Other acute kidney failure; Z86.73 Personal history of transient ischemic attack (TIA), and cerebral infarction without residual deficits; Z16.23 Resistance to quinolones and fluoroquinolones; M06.9 Rheumatoid arthritis, unspecified; I44.0 Atrioventricular block, first degree; E87.1 Hypo-osmolality and hyponatremia; B96.29 Other Escherichia coli [E. coli] as the cause of diseases classified elsewhere; I10 Essential (primary) hypertension; E86.0 Dehydration; R26.89 Other abnormalities of gait and mobility; R05.1 Acute cough; N40.1 Benign prostatic hyperplasia with lower urinary tract symptoms; E78.5 Hyperlipidemia, unspecified; I25.10 Atherosclerotic heart disease of native coronary artery without angina pectoris; R06.2 Wheezing; E11.42 Type 2 diabetes mellitus with diabetic polyneuropathy; N39.0 Urinary tract infection, site not specified; E11.65 Type 2 diabetes mellitus with hyperglycemia; R79.82 Elevated C-reactive protein (CRP); R53.1 Weakness; R70.0 Elevated erythrocyte sedimentation rate